=== PATIENT | female | born 1980 | race Caucasian/White ===

== ENCOUNTER → 2018-02-14 16:19 | Outpatient (CLI) | payer SELFPAY ==
[2018-02-14 18:23] LABS: Free T3, Triiodothyronine Free 3.31 pg/mL (2.77-5.27); Free T4, Direct Thyroxine 0.89 ng/dL (0.78-2.19)
[2018-02-14 18:37] LABS: Thyroid Stimulating Hormone 1.71 uIU/mL (0.47-4.68)
[2018-02-14 18:38] LABS: Ferritin 32.4 ng/mL (6.27-137)
[2018-02-16 15:04] LABS: Thyroid Peroxidase Antibodies < 1 IU/mL (< 9)
== END ==
PROVIDERS: Family Provider Family Medicine; Visit Provider Naturopath
DX: R53.83 Other fatigue (principal); E07.9 Disorder of thyroid, unspecified
CPT/HCPCS: 36415; 82728; 84439; 84443; 84481; 86376

== ENCOUNTER → 2021-05-07 07:47 | Outpatient (CLI) | payer OTHER, MEDICAID, SELFPAY ==
--- NOTE | 2021-05-07 07:49 | DI.US.S_ITS ---
PROCEDURE: US OB <= 14 WEEKS FETUS INDICATIONS: DATING OUTSIDE/PRIOR DATING DATA: Last menstrual period (LMP): 03/10/2021 LMP-based estimated date of delivery (FARHAD): 12/15/2021. First dating scan (date and location): 05/07/2020. Estimated date of delivery (FARHAD) from first dating scan: 12/11/2021. TECHNIQUE: Real-time scanning was performed of the fetus and maternal pelvic organs, with image documentation. Endovaginal scanning was also performed to better visualize the fetus and maternal ovaries. COMPARISON: None. FINDINGS: Embryo: [place]-rump length measures 2.2 cm corresponding to 8 weeks 6 days. Heart rate: 171 Measurement variability in dating: +/- 4 weeks by LMP, +/- 7 days by mean sac diameter (use before 6 weeks gestation if crown-rump length not able to be measured), +/- 5 days by crown-rump length (up to 8 weeks 6 days gestation), +/- 7 days by crown-rump length (up to 13 weeks 6 days gestation). Maternal organs: Neither normal ovary is seen. There is a cystic structure within the midline of the pelvis measuring 5.8 x 4.7 x 3.0 cm as well as a cyst within the right adnexa measuring 3.2 x 2.9 x 2.9 cm which contains likely a prominent posterior wall septation. IMPRESSION: 1. 8 week 6 day single living IUP. 2. There are 2 cystic structures within the midline of the pelvis and the right adnexa as above. Recommend continued followup ultrasound as detailed below. Recommend clinical correlation and short-term follow-up pelvic ultrasound to assess for interval change and/or resolution. Dictated by: Robert Meyer [facility] Interpreted: Drake Santiago MD on 05/08/2021 at 16:34 Transcribed by: TWIN on 05/08/2021 at 16:38 Approved by: Drake Santiago M.D. on 05/08/2021 at 17:17
== END ==
PROVIDERS: Family Provider Family Medicine; PCP Family Medicine; Referring Provider Family Medicine; Visit Provider Family Medicine
DX: O34.81 Maternal care for other abnormalities of pelvic organs, first trimester (principal); N94.89 Other specified conditions associated with female genital organs and menstrual cycle; Z3A.08 8 weeks gestation of pregnancy
CPT/HCPCS: 76801; 76817

== ENCOUNTER → 2021-05-09 10:23 | Outpatient (CLI) | payer OTHER, MEDICAID, SELFPAY ==
--- NOTE | 2021-05-08 10:40 | DI.US.S_ITS ---
Patient Name: MK MAHAN date: 1980 Sex: F Attending Physician: Fabian Indications: Date: 05/09/2021 11:40 At the request of: ELKE JACINTO Procedure: US breast RT limited LIMITED ULTRASOUND OF RIGHT BREAST: 05/09/2021 CLINICAL: Palpable right breast lump and focal pain. Comparison is made to exam dated: 05/09/2021 [facility]. No prior mammograms. Patient is in her first trimester of . Real-time ultrasound of the right breast 4 o'clock region was performed. Alvarado scale images of the realtime examination were reviewed. No significant abnormalities were seen sonographically in the right breast in the region of pain. IMPRESSION: NEGATIVE There is no sonographic evidence of malignancy in the region of pain. Exam findings were conveyed to the patient. Patient is advised to monitor for significant change. Clinical follow-up as needed. A 1 year screening mammogram is recommended. This exam was interpreted at Station ID: [id number]. Electronically Signed By: Jerry Dia M.D. slc/:05/09/2021 11:47:34 letter sent: Normal Exam Ultrasound BI-RADS: 1 Negative
--- NOTE | 2021-05-09 10:23 | DI.US.S_ITS ---
LIMITED ULTRASOUND OF LEFT BREAST: 05/09/2021 CLINICAL: Palpable left breast lump and focal pain. No prior exams were available for comparison. Patient is in her first trimester of . Color flow and real-time ultrasound of the left breast were performed. Alvarado scale images of the real-time examination were reviewed. No solid mass or significant cyst in the region of palpable abnormality and pain at 10:00. There is a 0.8 cm oval cyst in the left breast at 12 o'clock middle depth. This oval cyst is anechoic. This correlates as an incidental finding. Color flow imaging demonstrates that there is no vascularity present. There is an adjacent duct or cyst. Simple cyst at 12:00 8 cm from the nipple measuring 0.7 cm. Multiple small cysts or ducts. IMPRESSION: BENIGN There is no sonographic evidence of malignancy. Patient is in her first trimester of . No solid mass or significant cyst in the region of palpable abnormality and pain. Several small incidental cysts and/or ducts in the 12:00 region which are typically benign. Exam findings were conveyed to the patient. Patient is advised to monitor for significant change. Clinical follow-up as needed. A 1 year screening mammogram is recommended. This exam was interpreted at Station ID: [id number]. Electronically Signed By: Jerry Dia M.D. [facility]/:05/09/2021 11:45:18 Entry: [facility] [address] 05/12/2021 08:50:29 Ultrasound BI-RADS: 2 Benign
== END ==
PROVIDERS: Family Provider Family Medicine; PCP Family Medicine; Referring Provider Family Medicine; Visit Provider Family Medicine
DX: O92.29 Other disorders of breast associated with pregnancy and the puerperium (principal)
CPT/HCPCS: 76642

== ENCOUNTER → 2021-05-29 14:54 | Outpatient (CLI) | payer OTHER, MEDICAID, SELFPAY ==
[2021-05-29 15:47] LABS: Add Manual Diff / Slide Review NO; Basophils Absolute Auto 0 /uL (0-100); Basophils Percent Auto 0.2 % (0-2); Eosinophils Absolute Auto 100 /uL (0-450); Hematocrit 35.5 % (36-46); Hemoglobin 12.1 g/dL (12.0-16.0); Lymphocytes Absolute Auto 1700 /uL (1100-4500); Lymphocytes Percent Auto 26.1 % (25-40); Mean Corpuscular HGB Conc 34.1 % (30-36); Mean Corpuscular Hemoglobin 31.3 PG (26-34); Mean Corpuscular Volume 91.9 fL (80-100); Monocytes Absolute Auto 400 /uL (0-900); Monocytes Percent Auto 6.8 % (3-14); Neutrophils Absolute Auto 4300 /uL (1500-7000); Neutrophils Percent Auto 65.9 % (50-75); Platelet Count 178 X10^3/uL (150-400); Red Blood Cell Count 3.87 X10^6/uL (4.0-5.2); Red Cell Distribution Width 11.9 % (11.6-14.8); White Blood Cell Count 6.5 X10^3/uL (4.5-11.0)
[2021-05-29 16:18] LABS: Appearance Urine UA CLEAR; Bilirubin Urine UA NEGATIVE (NEGATIVE); Color Urine UA YELLOW; Glucose Urine UA NEGATIVE (Negative); Ketones Urine UA NEGATIVE (NEGATIVE); Leukocyte Esterase Urine UA 1+ (NEGATIVE); Nitrite Urine UA NEGATIVE (Negative); Occult Blood Urine UA NEGATIVE (Negative); Protein Urine UA NEGATIVE (Negative); Urobilinogen Urine UA 0.2 E.U./dL (0.2)
[2021-05-29 16:20] LABS: pH Urine UA 6.5 (4.5-8.0)
[2021-05-29 16:30] LABS: Bacteria Urine Moderate (10-30); RBC Urine 0-1/HPF (0-5/HPF); Squamous Epithelial Cell Urine 5-10 /HPF (0-5/HPF); Transitional Epi Cells Urine 1-5/HPF (0-5/HPF); WBC Urine 5-10/HPF (0-5/HPF)
[2021-05-29 17:39] LABS: Hepatitis B Surface Antigen NEGATIVE s/c (NEGATIVE); Rubella Antibody IgG 20.2 IU/mL (>15)
[2021-05-29 18:06] LABS: HIV 1 & 2 Ab/Ag 4th Gen Combo NEGATIVE (NEGATIVE); Hep C Virus Ab w/Reflex Quant NEGATIVE s/c (NEGATIVE)
[2021-05-30 05:24] LABS: Varicella IgG Antibody 722 index (Immune >165)
[2021-05-30 06:59] LABS: RPR Screen Non Reactive (Non Reactive)
== END ==
PROVIDERS: Family Provider Family Medicine; PCP Family Medicine; Referring Provider Family Medicine; Visit Provider Family Medicine
DX: O09.511 Supervision of elderly primigravida, first trimester (principal); Z3A.08 8 weeks gestation of pregnancy
CPT/HCPCS: 36415; 80055; 81003; 81015; 81420; 86787; 86803; 86850; 86900; 86901; 87086; 87389

== ENCOUNTER → 2021-07-30 12:32 | Outpatient (CLI) | payer OTHER, MEDICAID, SELFPAY ==
--- NOTE | 2021-07-30 12:32 | DI.US.S_ITS ---
PROCEDURE: US OB >= 14 WEEKS FETUS INDICATIONS: ANATOMY OUTSIDE/PRIOR DATING DATA: Last menstrual period (LMP): 03/10/2021. LMP-based estimated date of delivery (FARHAD): 12/15/2021. First dating scan (date and location): 05/07/2021 [facility]. Estimated date of delivery (FARHAD) from first dating scan: 12/11/2021. The calculations are made using the ultrasound FARHAD of 12/11/2021. TECHNIQUE: Real-time scanning was performed of the fetus, with image documentation and biometric measurements. Endovaginal scanning: Not performed. COMPARISON: [facility], US, US OB <= 14 WEEKS FETUS, 05/14/2021, 15:36. FINDINGS: General: A single living intrauterine gestation is present. Presentation: Variable. Placenta: Placental position is anterior, without previa. Amniotic fluid index: 21.3 cm, normal range is 5-24 cm. Single deepest vertical pocket is 6.7 cm. heart rate: 160 beats per minute. Maternal cervical canal: 4.2 cm long. Normal lower limit is 2.5 cm. biometrics: Biparietal diameter: 5 cm, 21 weeks 1 day Head circumference: 18.2 cm, 20 weeks 4 days Abdominal circumference: 17.1 cm, 22 weeks 1 day Femur length: 3.4 cm, 20 weeks 4 days Clinically estimated gestational age: 20 weeks 6 days Composite gestational age from present scan: 21 weeks 1 day Estimated weight and percentile: 414 g, 70th percentile Anatomic survey: Neuro: Ventricles are non-dilated at less than 10 mm. Cisterna magna is normal at 3-11 mm. Cerebellum is normal in size and morphology. Nuchal skin fold: Normal at less than 6 mm between 14-21 weeks gestational age. Face: Nose and lips, facial profile are normal. Spine: No evidence for spina bifida. Heart: 4-chambered heart is present, with normal ventricular outflow tracts. Diaphragm: Diaphragm is intact. Stomach: Left-sided stomach is present. Kidneys: No hydronephrosis. Normal is less than 5 mm in 2nd trimester, less than 7 mm in 3rd trimester. Cord: 3-vessel cord has orthotopic insertion. Bladder: Normal in size. Extremities: All 4 extremities identified. IMPRESSION: 1. Howard living intrauterine at 21 weeks 1 day based on today's ultrasound. This is concordant with the prior ultrasound. There is expected interval growth. Fetus is in the 70th percentile for weight. 2. Normal placenta and amniotic fluid. 3. Normal and complete anatomic survey. We strive to produce accurate, complete, and clear reports of imaging services. To assist us in improving patient care, this report was composed using standard report templates and voice recognition software. Therefore, it may contain abnormal punctuation, insertions and/or omissions. Occasional wrong-word or sound-alike substitutions may occur. Though we review the report and make efforts to correct it, we do recommend that the report be read carefully in proper context to recognize any text inaccuracies. Dictated by: Jerry Dia M.D. on 07/30/2021 at 14:27 Approved by: Jerry Dia M.D. on 07/30/2021 at 14:32
== END ==
PROVIDERS: Family Provider Family Medicine; PCP Family Medicine; Referring Provider Family Medicine; Visit Provider Family Medicine
DX: Z36.89 Encounter for other specified antenatal screening (principal); Z3A.21 21 weeks gestation of pregnancy
CPT/HCPCS: 76811

== ENCOUNTER 2021-08-22 11:15 | Outpatient (RCR) | payer OTHER, MEDICAID, SELFPAY ==
--- NOTE | 2021-06-24 17:32 | PT.OIE ---
Current Diagnoses Strain of muscle, fascia and tendon of right hip, initial encounter (06/24/21) Past Medical History (Last Updated 04/30/21 @ 12:30 by Dior Basilio RN) Abnormal Pap smear of cervix (~2003) Anemia (~2009) Blindness (~2013) Chicken pox (~1987) Herpes (~2015) History of hand surgery (~2007) Human papilloma virus (~2004) Menorrhagia with regular cycle (05/31/15) PMDD (premenstrual dysphoric disorder) depression associated with first (~06/2016) Secondary dysmenorrhea (05/31/15) Past Surgical History (Last Updated 04/30/21 @ 12:26 by Dior Basilio RN) Anesthesia History of hand surgery (~2007) History of third molar tooth extraction (~2000) Status post sclerotherapy of varicose veins (~2006) Visit Care Team Role Provider Type Silvia Tovar MD Family Provider Physician Primary Care Provider Specialty: [facility] Address: [address] [place] [address], [facility] [place] [id number] Email: [email or web address] Michelle Peralta MD Attending Provider Physician Referring Provider Specialty: [facility] Address: [address] [place] [address], [place], [address] Email: [email or web address] Physical Therapy Initial Evaluation PT-OP-A Visit Information Start: 06/20/21 18:32 Freq: Status: Active Protocol: Document 06/24/21 11:16 LRN (Rec: 06/24/21 12:14 LRN [id number]) Out-Patient Physical Therapy Visit Information Visit Information Visit Type Initial Evaluation Visit Start Time 11:16 Visit Stop Time 12:08 Total Visit Minutes 52 Visit Number 1 Evaluation Information Evaluation Date 06/24/21 Precautions Precautions Bilateral varicose vein removal 2010. 3, Parity 1. Pt is currently 14 weeks . PT-OP-B Current Condition Start: 06/20/21 18:32 Freq: Status: Active Protocol: Document 06/24/21 11:16 LRN (Rec: 06/24/21 12:14 LRN [id number]) Current Condition History of Current Condition Onset Date 3 yrs ago Current Complaints R hip pain, onset of L hip pain 2 days ago. History of Current Condition R hip pain started 3 yrs ago when son was 1.5 yrs old, carrying him on the L hip. R hip pain of insidious onset. has caused a flair up of pain. She is uncomfortable lying on either side, standing for > 30', walking after 30', sitting > 1 hour (unbearable after 2 hrs. If stands > 30', the R hip/LB pain extends into the groin. If doesn't move, the R hip becomes painful, and muscles feel tight. Denies pubic symphysis pain. Pt must shift often in sitting due to the pain. L hip pain just started 2 days ago. Pain in the center of the L buttock, described as constant sharp pain for a couple minutes ( different from R side) 1-2 times a day. Prior Treatments and Tests Chiropractor visits for 6 months, stopped in March due to and lack of pain relief. Pt reports X-rays by Chiropractor showed normal R hip & R SI joints. Future Testing and Treatments Planned None Treatment Goals Patient/Caregiver Goals Goal: improve hip mobility to increase tolerance to exercises. Goal: review ex and get on appropriate ex program. Goal: improve mobility of R hip. GoaL: lying on side with greater comfort. 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 Baseline Function- Recreation/Hobbies Body weight exercising 5x/week . Baseline Function- Other Mom of a 5 yr old. Current Functional Impairments (Reported) Functional Limitations- ADL's Pain with sidelying, sitting or standing >30' and walking greater than 1 hour. Functional Limitations- Work/School Limited with sitting for work. 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 Functional Limitations- Recreation/ Makes adjustments as needed Hobbies for exercise routine due to R hip pain. Personal Factors Other Personal Factors That May Effect due date is December 15, Therapy/Recovery 2021. 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 PT-OP-C Subjective Start: 06/20/21 18:32 Freq: Status: Active Protocol: Document 06/24/21 11:16 LRN (Rec: 06/24/21 12:14 LRN [id number]) Patient Questionnaires Lower Extremity Functional Scale LEFS Score 60 LEFS Impairment 20 to 39% Impaired (Score 48- 62) OP-PT Pain Assessment Pain Assessment Grid Paper Pain Assessment Grid Completed Yes Location L hip pain Pain Location Details Mid L hip Intensity 4 Scale Used Numeric (0 - 10) Description Sharp Description- Other Only in standing Frequency Intermittent R hip Pain Location Details R hip/LBP wraps around the laterally, if worsens it radiates into the groin Intensity 6 Scale Used Numeric (0 - 10) Description Dull,Pressure,Tightness Description- Other Pain ranges 3-6 (around hip is 6, in groin is 3. Frequency Constant PT-OP-G Mobility & Gait Start: 06/20/21 18:32 Freq: Status: Active Protocol: Document 06/24/21 11:16 LRN (Rec: 06/24/21 12:14 LRN [id number]) OP Gait Assessment Gait Gait Assistance Required: Independent Able to Maintain Weight Bearing Status Yes During Gait Assistive Devices Assistive Device None Comments Gait Comments R hip excessive sway and lifts up on toes (R) from stance phase to toe off. Stair Climbing Evaluation Evaluation Level of Assist On Stairs Independent Devices Stair Climbing Assistive Devices None Technique/Endurance Stair Climbing Direction Ascend and Descend Stair Climbing Technique Step Over Step PT-OP-H Neuro Start: 06/20/21 18:32 Freq: Status: Active Protocol: Document 06/24/21 11:16 LRN (Rec: 06/24/21 12:14 LRN [id number]) Sensation Evaluation Gross Sensation Gross Sensation WNL PT-OP-J Posture/Palpation/Skin Start: 06/20/21 18:32 Freq: Status: Active Protocol: Document 06/24/21 11:16 LRN (Rec: 06/24/21 12:14 LRN [id number]) Posture Evaluation Position Standing T-Spine Posture Flattened L-Spine Posture Increased Lordosis Pelvis Posture Anteriorly Tilted Weight Distribution Balanced Knee Posture (L) Genu Valgus,(R) Genu Valgus Comments Posture Comments In sitting pt move frequently, leaning and sitting on one hip, then the other. Palpation Assessment Location R Hip Palpation Details Decreased R inferior glide of R sacral base, decreased sacral shear to left, R ischium is posterior L TIFFANY is posterior PT-OP-K Range of Motion Start: 06/20/21 18:32 Freq: Status: Active Protocol: Document 06/24/21 11:16 LRN (Rec: 06/24/21 12:14 LRN [id number]) Lumbar Spine Range of Motion Lumbar Spine Active Degrees Testing Position Standing Flexion 98 Extension 3 Rotation Left 20 Rotation Right 35 Lateral Flexion Left 10 Lateral Flexion Right 13 Comments Ext causes pain in sit bone reagion SB is combo of SB/rot to same side. Hip Goniometric Range of Motion Hip Right Passive Testing Position Supine Straight Leg Raise 80 Internal Rotation 25 External Rotation 65 Left Passive Testing Position Supine Straight Leg Raise 85 Internal Rotation 30 External Rotation 55 PT-OP-M Strength Start: 06/20/21 18:32 Freq: Status: Active Protocol: Document 06/24/21 11:16 LRN (Rec: 06/24/21 12:14 LRN [id number]) Hand Speed Reading Teacher/Pinch Strength Hand Dominance Hand Dominance Right Hip Strength Hip Manual Muscle Testing Right Flexion (L2) 5 Normal Abduction 4 Good Adduction 3+ Fair+ External Rotation 3+ Fair+ Internal Rotation 5 Normal Left Flexion (L2) 5 Normal Abduction 5 Normal Adduction 5 Normal External Rotation 5 Normal Internal Rotation 5 Normal PT-OP-Q Treatments Start: 06/20/21 18:32 Freq: Status: Active Protocol: Document 06/24/21 11:16 LRN (Rec: 06/24/21 12:14 LRN [id number]) Manual Therapy Treatment Soft Tissue Mobilization Inferior glide L Sacral base Body Location L Sacral Base Mobilization Type Myofascial Release Intensity/Depth Moderate Body Position Prone Comments Prone on pillow Joint Mobilizations Ischial Mobility Joint R Ischial Tuberosity Direction PA Body Position Prone Comments Prone on pillow. MFR treatment Sacral TIFFANY Joint PA of L Sacral TIFFANY Direction PA Body Position Prone Comments Prone on pillow. MFR treatment R Sacral rotation Joint L SIJ, PA at L lateral side of sacrum Direction Correcting a L rotated sacrum Body Position Prone Comments Prone on pillow. MFR treatment Self-Care/Home Management Treatment Education Other Education Discussed results of evaluation, goals, and plan of care (POC). Pt agreeable to goals and POC. PT-OP-T Assessment and Plan Start: 06/20/21 18:32 Freq: Status: Active Protocol: Document 06/24/21 11:16 LRN (Rec: 06/24/21 12:14 LRN [id number]) Physical Therapy Assessment Rehab Potential Rehabilitation Potential Good Evaluation Complexity Number of Personal Factors/Comorbidities 3 or More Number of Body Systems Impaired 4 or More Clinical Presentation at Evaluation Evolving Impairments Impairments Activity Tolerance,Gait,Pain, Posture,ROM,Strength,Transfers Goals Three Impairment Decreased pelvic/lumbar strength and stability. Impairment R Hip strength: AD 3+/5, AB 4 /5, ER 3+/5. L Hip strength is normal. Pain with sidelying, sitting or standing >30' Short Term Goal (STG) Improve trunk stability with pt able to increase standing tolerance. STG Duration 08/08/21 Residential Goal (LTG) Improve pelvic stability with pt able to sit and sidelye with greater comfort (improved tolerance). LTG Duration 09/22/21 Two Impairment Asymmetry of Hip/lumbar mobility causing strain and pain in bilateral hips Impairment Hip PROM (in deg's): ER is 65 R, 55L, IR is 25 R, 55 L, PSLR is 80 R, 85 L. Lumbar AROM (in deg's): Extension: 3 deg's, Rot: 20 L, 35 R; SB: 10 L, 13 R Pain with walking greater than 1 hour. Short Term Goal (STG) Pt will be educated in proper transfer (log roll) technique and demonstrate improve hip rotation and lumbar extension/ rotation mobility to increase tolerance to exercises. STG Duration 08/08/21 Residential Goal (LTG) Improve symmetry of hip and lumbar mobility with normalization of gait and pt able to do a exercise without sharp pain and worsening of pain. LTG Duration 09/22/21 One Impairment Lacks appropriate self care HEP. Short Term Goal (STG) Pt will educated in proper posture in standing, sitting & for sleeping. Pt's current exercise reviewed and modified as needed for appropriate exercise. STG Duration 08/08/21 Residential Goal (LTG) Pt will be independent in a self care HEP appropriate for her ending condition to include hip/trunk mobility and trunk/pelvic stabilization. LTG Duration 09/22/21 Assessment Summary Assessment Pt is a 41 year old female in her first trimester of who is 3, Parity 1. She presents with decreased mobility of the R SIJ with sacrum SB right and L rotated. She is does not sit still during the evaluation and is constantly shifting while in sitting. Her R hip/ SIJ pain that wraps around to the front and into the R groin is her primary complaint, but within the past 2 days has developed onset of L low back pain that is different in nature (sharp vs dull ache). Her L sided pain will be assessed at the next appointment, but probably a Sacroiliac joint dyfunction. Her R SIJ/hip pain appears to be a mechanical dysfunction of the pelvic region and soft tissue dysfunction due to core and pelvic stability weakness . The pt will benefit from skilled physical therapy to promote pelvic symmetry and stability, core and pelvic stabilization, therapeutic exercise to improve trunk and hip mobility, modalities for pain and pt education in posture (sit, stand, sleep), body mechanics, appropriate self care exercise program. Physical Therapy Plan Frequency and Duration Frequency of Treatment 2x/Week Plan of Care Start Date 06/24/21 Plan of Care End Date 09/22/21 Therapeutic Interventions Therapeutic Interventions Gait Training,Home Exercise Program,Joint Mobilizations, Manual Therapy,Neuromuscular Re-education,Patient/Caregiver Education,Self-Care/Home Management,Soft Tissue Mobilization,Taping, Therapeutic Activities, Therapeutic Exercises Modalities Cold Pack/Ice Massage,Hot Packs Next Visit Focus/Plan Next Note Type Treatment Note Next Visit Plan Check special tests for R SIJ dysfunction. Assess and treat for open pattern and rebalance. Educate for proper posture (sit, stand, sleep), DR protection & correct transfers. Therapeutic ex for core/pelvic stabilization and stretches (L hip ER, R hip IR /hamstring; trunk flex, L rot & L lateral flex), strengthening PF/R hip (AD/ER) . Gait training as needed. End CP.
--- NOTE | 2021-06-24 17:33 | PT.OPPOC ---
Physical, Occupational & Speech Therapy At [facility] Current Diagnoses Strain of muscle, fascia and tendon of right hip, initial encounter (06/24/21) Visit Care Team Role Provider Type Silvia Tovar MD Family Provider Physician Primary Care Provider Specialty: [facility] Address: [address] [place] [address], [address], [place], [address] Email: [email or web address] Michelle Peralta MD Attending Provider Physician Referring Provider Specialty: [facility] Address: [address] [place] [address], [address], [place], [address] Email: [email or web address] Plan Of Care PT-OP-T Assessment and Plan Start: 06/20/21 18:32 Freq: Status: Active Protocol: Document 06/24/21 11:16 LRN (Rec: 06/24/21 12:14 LRN [id number]) Physical Therapy Assessment Rehab Potential Rehabilitation Potential Good Evaluation Complexity Number of Personal Factors/Comorbidities 3 or More Number of Body Systems Impaired 4 or More Clinical Presentation at Evaluation Evolving Impairments Impairments Activity Tolerance,Gait,Pain, Posture,ROM,Strength,Transfers Goals Three Impairment Decreased pelvic/lumbar strength and stability. Impairment R Hip strength: AD 3+/5, AB 4 /5, ER 3+/5. L Hip strength is normal. Pain with sidelying, sitting or standing >30' Short Term Goal (STG) Improve trunk stability with pt able to increase standing tolerance. STG Duration 08/08/21 Half-Way Goal (LTG) Improve pelvic stability with pt able to sit and sidelye with greater comfort (improved tolerance). LTG Duration 09/22/21 Two Impairment Asymmetry of Hip/lumbar mobility causing strain and pain in bilateral hips Impairment Hip PROM (in deg's): ER is 65 R, 55L, IR is 25 R, 55 L, PSLR is 80 R, 85 L. Lumbar AROM (in deg's): Extension: 3 deg's, Rot: 20 L, 35 R; SB: 10 L, 13 R Pain with walking greater than 1 hour. Short Term Goal (STG) Pt will be educated in proper transfer (log roll) technique and demonstrate improve hip rotation and lumbar extension/ rotation mobility to increase tolerance to exercises. STG Duration 08/08/21 Braille Typist Goal (LTG) Improve symmetry of hip and lumbar mobility with normalization of gait and pt able to do a exercise without sharp pain and worsening of pain. LTG Duration 09/22/21 One Impairment Lacks appropriate self care HEP. Short Term Goal (STG) Pt will educated in proper posture in standing, sitting & for sleeping. Pt's current exercise reviewed and modified as needed for appropriate exercise. STG Duration 08/08/21 Braille Typist Goal (LTG) Pt will be independent in a self care HEP appropriate for her ending condition to include hip/trunk mobility and trunk/pelvic stabilization. LTG Duration 09/22/21 Assessment Summary Assessment Pt is a 41 year old female in her first trimester of who is 3, Parity 1. She presents with decreased mobility of the R SIJ with sacrum SB right and L rotated. She is does not sit still during the evaluation and is constantly shifting while in sitting. Her R hip/ SIJ pain that wraps around to the front and into the R groin is her primary complaint, but within the past 2 days has developed onset of L low back pain that is different in nature (sharp vs dull ache). Her L sided pain will be assessed at the next appointment, but probably a Sacroiliac joint dyfunction. Her R SIJ/hip pain appears to be a mechanical dysfunction of the pelvic region and soft tissue dysfunction due to core and pelvic stability weakness . The pt will benefit from skilled physical therapy to promote pelvic symmetry and stability, core and pelvic stabilization, therapeutic exercise to improve trunk and hip mobility, modalities for pain and pt education in posture (sit, stand, sleep), body mechanics, appropriate self care exercise program. Physical Therapy Plan Frequency and Duration Frequency of Treatment 2x/Week Plan of Care Start Date 06/24/21 Plan of Care End Date 09/22/21 Therapeutic Interventions Therapeutic Interventions Gait Training,Home Exercise Program,Joint Mobilizations, Manual Therapy,Neuromuscular Re-education,Patient/Caregiver Education,Self-Care/Home Management,Soft Tissue Mobilization,Taping, Therapeutic Activities, Therapeutic Exercises Modalities Cold Pack/Ice Massage,Hot Packs Next Visit Focus/Plan Next Note Type Treatment Note Next Visit Plan Check special tests for R SIJ dysfunction. Assess and treat for open pattern and rebalance. Educate for proper posture (sit, stand, sleep), DR protection & correct transfers. Therapeutic ex for core/pelvic stabilization and stretches (L hip ER, R hip IR /hamstring; trunk flex, L rot & L lateral flex), strengthening PF/R hip (AD/ER) . Gait training as needed. End CP. Plan of Care Dates Plan of Care Start Date 06/24/21 Plan of Care End Date 09/22/21 Electronically Signed by: Talya Mcgovern, PT 06/24/21 [id number] Please Sign and Return: I have reviewed this Plan of Care and certify that the skilled therapy services above are required to meet the patient?s needs. Physician Signature Date Printed Name and Credentials Clinical Instructor Signature Printed Name and Credentials
--- NOTE | 2021-06-27 16:55 | PT.OTN ---
Current Diagnoses Strain of muscle, fascia and tendon of right hip, initial encounter (06/27/21) Physical Therapy Treatment Note PT-OP-A Visit Information Start: 06/20/21 18:32 Freq: Status: Active Protocol: Document 06/27/21 13:40 LRN (Rec: 06/27/21 16:54 LRN [id number]) Out-Patient Physical Therapy Visit Information Visit Information Visit Type Treatment Note Visit Start Time 13:40 Visit Stop Time 14:19 Total Visit Minutes 39 Visit Number 2 Evaluation Information Evaluation Date 06/24/21 Precautions Precautions Bilateral varicose vein removal 2010. 3, Parity 1. Pt is currently 14 weeks . PT-OP-B Current Condition Start: 06/20/21 18:32 Freq: Status: Active Protocol: Document 06/24/21 11:16 LRN (Rec: 06/24/21 12:14 LRN [id number]) Current Condition History of Current Condition Onset Date 3 yrs ago Current Complaints R hip pain, onset of L hip pain 2 days ago. History of Current Condition R hip pain started 3 yrs ago when son was 1.5 yrs old, carrying him on the L hip. R hip pain of insidious onset. has caused a flair up of pain. She is uncomfortable lying on either side, standing for > 30', walking after 30', sitting > 1 hour (unbearable after 2 hrs. If stands > 30', the R hip/LB pain extends into the groin. If doesn't move, the R hip becomes painful, and muscles feel tight. Denies pubic symphysis pain. Pt must shift often in sitting due to the pain. L hip pain just started 2 days ago. Pain in the center of the L buttock, described as constant sharp pain for a couple minutes ( different from R side) 1-2 times a day. Prior Treatments and Tests Chiropractor visits for 6 months, stopped in March due to and lack of pain relief. Pt reports X-rays by Chiropractor showed normal R hip & R SI joints. Future Testing and Treatments Planned None Treatment Goals Patient/Caregiver Goals Goal: improve hip mobility to increase tolerance to exercises. Goal: review ex and get on appropriate ex program. Goal: improve mobility of R hip. GoaL: lying on side with greater comfort. 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 Baseline Function- Recreation/Hobbies Body weight exercising 5x/week . Baseline Function- Other Mom of a 5 yr old. Current Functional Impairments (Reported) Functional Limitations- ADL's Pain with sidelying, sitting or standing >30' and walking greater than 1 hour. Functional Limitations- Work/School Limited with sitting for work. 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 Functional Limitations- Recreation/ Makes adjustments as needed Hobbies for exercise routine due to R hip pain. Personal Factors Other Personal Factors That May Effect due date is December 15, Therapy/Recovery 2021. 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 PT-OP-C Subjective Start: 06/20/21 18:32 Freq: Status: Active Protocol: Document 06/27/21 13:40 LRN (Rec: 06/27/21 16:54 LRN [id number]) OP-PT Subjective Patient Comments Patient Comments Was sore after the eval in the R SIJ, but last night did not get woken. Sometimes the pain wakes her. PT-OP-G Mobility & Gait Start: 06/20/21 18:32 Freq: Status: Active Protocol: Document 06/24/21 11:16 LRN (Rec: 06/24/21 12:14 LRN [id number]) OP Gait Assessment Gait Gait Assistance Required: Independent Able to Maintain Weight Bearing Status Yes During Gait Assistive Devices Assistive Device None Comments Gait Comments R hip excessive sway and lifts up on toes (R) from stance phase to toe off. Stair Climbing Evaluation Evaluation Level of Assist On Stairs Independent Devices Stair Climbing Assistive Devices None Technique/Endurance Stair Climbing Direction Ascend and Descend Stair Climbing Technique Step Over Step PT-OP-H Neuro Start: 06/20/21 18:32 Freq: Status: Active Protocol: Document 06/24/21 11:16 LRN (Rec: 06/24/21 12:14 LRN [id number]) Sensation Evaluation Gross Sensation Gross Sensation WNL PT-OP-J Posture/Palpation/Skin Start: 06/20/21 18:32 Freq: Status: Active Protocol: Document 06/24/21 11:16 LRN (Rec: 06/24/21 12:14 LRN [id number]) Posture Evaluation Position Standing T-Spine Posture Flattened L-Spine Posture Increased Lordosis Pelvis Posture Anteriorly Tilted Weight Distribution Balanced Knee Posture (L) Genu Valgus,(R) Genu Valgus Comments Posture Comments In sitting pt move frequently, leaning and sitting on one hip, then the other. Palpation Assessment Location R Hip Palpation Details Decreased R inferior glide of R sacral base, decreased sacral shear to left, R ischium is posterior L TIFFANY is posterior PT-OP-K Range of Motion Start: 06/20/21 18:32 Freq: Status: Active Protocol: Document 06/24/21 11:16 LRN (Rec: 06/24/21 12:14 LRN [id number]) Lumbar Spine Range of Motion Lumbar Spine Active Degrees Testing Position Standing Flexion 98 Extension 3 Rotation Left 20 Rotation Right 35 Lateral Flexion Left 10 Lateral Flexion Right 13 Comments Ext causes pain in sit bone reagion SB is combo of SB/rot to same side. Hip Goniometric Range of Motion Hip Right Passive Testing Position Supine Straight Leg Raise 80 Internal Rotation 25 External Rotation 65 Left Passive Testing Position Supine Straight Leg Raise 85 Internal Rotation 30 External Rotation 55 PT-OP-L Special Tests Start: 06/20/21 18:32 Freq: Status: Active Protocol: Document 06/27/21 13:40 LRN (Rec: 06/27/21 16:54 LRN [id number]) Special Tests Hip Special Tests Posterior Labral Test Test Results Negative RLE Anterior Labral Test Test Results Negative RLE [facility] Resisted Hip Flexion Test Results Negative RLE MEGHANN Test Results Negative RLE PT-OP-M Strength Start: 06/20/21 18:32 Freq: Status: Active Protocol: Document 06/24/21 11:16 LRN (Rec: 06/24/21 12:14 LRN [id number]) Hand Crushing Machine Operator/Pinch Strength Hand Dominance Hand Dominance Right Hip Strength Hip Manual Muscle Testing Right Flexion (L2) 5 Normal Abduction 4 Good Adduction 3+ Fair+ External Rotation 3+ Fair+ Internal Rotation 5 Normal Left Flexion (L2) 5 Normal Abduction 5 Normal Adduction 5 Normal External Rotation 5 Normal Internal Rotation 5 Normal PT-OP-Q Treatments Start: 06/20/21 18:32 Freq: Status: Active Protocol: Document 06/27/21 13:40 LRN (Rec: 06/27/21 16:54 LRN [id number]) Therapeutic Exercises Sidelying Exercises Clamshell Sidelying Exercise Name Clamshell (R>L) Side bilateral Reps/Minutes 10' Comments Much phy & v cuing to keep pelvis stable & to lift knee higher Sitting Exercises Trunk Rot Sitting Exercise Name L[place]ha trunk rot (hands push to opposite knee) Side bilateral Reps/Minutes 5x R hand push, 2x L hand push Comments R hand pushing L knee > L hand /R knee Other Exercises Hands/knees Other Exercise Name TA tightening Reps/Minutes 5>10 sec H, x 10 Comments Extra time to determine neutral spine and v cuing to keep neutral. Manual Therapy Treatment Joint Mobilizations Pelvic rebalancing Joint Sacrum/Innominates Direction 8 point pelvic rebalancing Body Position Prone Comments Prone on pillow. MFR treatment Sacrum Joint R sacral sulcus Direction Inferior Body Position Prone Comments Prone on pillow. MFR treatment Sacral rotation correction Joint Correcting a R sacral rotation (PA R lat sacrum) Body Position Prone Comments Prone on pillow. MFR treatment Ischial Mobility Joint R Ischial Tuberosity Direction PA Body Position Prone Comments Prone on pillow. MFR treatment Sacral TIFFANY Joint PA of R Sacral TIFFANY Direction PA Body Position Prone Comments Prone on pillow. MFR treatment Self-Care/Home Management Treatment Education Patient Education Home Exercise Program Activities Self-Care/Home Management Activities Verbal instructions for Clamshell/neutral spine(TA) & 4 pt for TA tightening. PT-OP-T Assessment and Plan Start: 06/20/21 18:32 Freq: Status: Active Protocol: Document 06/27/21 13:40 LRN (Rec: 06/27/21 16:54 LRN [id number]) Physical Therapy Assessment Goals Three Impairment Decreased pelvic/lumbar strength and stability. Impairment R Hip strength: AD 3+/5, AB 4 /5, ER 3+/5. L Hip strength is normal. Pain with sidelying, sitting or standing >30' Short Term Goal (STG) Improve trunk stability with pt able to increase standing tolerance. STG Duration 08/08/21 Elastic Tape Inserter Goal (LTG) Improve pelvic stability with pt able to sit and sidelye with greater comfort (improved tolerance). LTG Duration 09/22/21 Two Impairment Asymmetry of Hip/lumbar mobility causing strain and pain in bilateral hips Impairment Hip PROM (in deg's): ER is 65 R, 55L, IR is 25 R, 55 L, PSLR is 80 R, 85 L. Lumbar AROM (in deg's): Extension: 3 deg's, Rot: 20 L, 35 R; SB: 10 L, 13 R Pain with walking greater than 1 hour. Short Term Goal (STG) Pt will be educated in proper transfer (log roll) technique and demonstrate improve hip rotation and lumbar extension/ rotation mobility to increase tolerance to exercises. STG Duration 08/08/21 [facility] Goal (LTG) Improve symmetry of hip and lumbar mobility with normalization of gait and pt able to do a exercise without sharp pain and worsening of pain. LTG Duration 09/22/21 One Impairment Lacks appropriate self care HEP. Short Term Goal (STG) Pt will educated in proper posture in standing, sitting & for sleeping. Pt's current exercise reviewed and modified as needed for appropriate exercise. STG Duration 08/08/21 [facility] Goal (LTG) Pt will be independent in a self care HEP appropriate for her ending condition to include hip/trunk mobility and trunk/pelvic stabilization. (06/27/21: Verbal I/S for 4pt TA tightening & Clamshell) LTG Duration 09/22/21 (06/27/21: Progressed) Assessment Summary Assessment Pt is a 41 year old female in her first trimester of who is 3, Parity 1. Testing of R hip for soft tissue dysfunction or SIJ pain was negative. Log roll test was not performed. In prone (on pillow/ pillow under legs), her sacrum appeared R rotated, L SB; R ischial tub was posterior. The positional changes were corrected with manual therapy and the pt had no complaints of pain after treatment. With exercises she shows poor pelvic stability with movement of the R LE (clamshell) as noted with inability to maintain a stable neutral position with clamshell exercise (decreased L pelvic rotation strength). Further core stab needed. Physical Therapy Plan Frequency and Duration Frequency of Treatment 2x/Week Plan of Care Start Date 06/24/21 Plan of Care End Date 09/22/21 Next Visit Focus/Plan Next Note Type Treatment Note Next Visit Plan Assess response to manual therapy. Educate for proper posture ( sit, stand, sleep) (STG #2). Educate pt in DR protection, transfer training, & current ex review for appropriateness (STG #1), then focus on therapeutic ex for core/pelvic stabilization and stretches (L hip ER, R hip IR/ hamstring; trunk flex, L rot & L lateral flex), strengthening PF/R hip (AD/ER) . Gait training as needed. End CP if needed.
--- NOTE | 2021-07-03 11:20 | PT.OTN ---
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 3, Parity 1. Pt is currently 14 weeks . PT-OP-B Current Condition Start: 06/20/21 18:32 Freq: Status: Active Protocol: Document 06/24/21 11:16 LRN (Rec: 06/24/21 12:14 LRN [id number]) Current Condition History of Current Condition Onset Date 3 yrs ago Current Complaints R hip pain, onset of L hip pain 2 days ago. History of Current Condition R hip pain started 3 yrs ago when son was 1.5 yrs old, carrying him on the L hip. R hip pain of insidious onset. has caused a flair up of pain. She is uncomfortable lying on either side, standing for > 30', walking after 30', sitting > 1 hour (unbearable after 2 hrs. If stands > 30', the R hip/LB pain extends into the groin. If doesn't move, the R hip becomes painful, and muscles feel tight. Denies pubic symphysis pain. Pt must shift often in sitting due to the pain. L hip pain just started 2 days ago. Pain in the center of the L buttock, described as constant sharp pain for a couple minutes ( different from R side) 1-2 times a day. Prior Treatments and Tests Chiropractor visits for 6 months, stopped in March due to and lack of pain relief. Pt reports X-rays by Chiropractor showed normal R hip & R SI joints. Future Testing and Treatments Planned None Treatment Goals Patient/Caregiver Goals Goal: improve hip mobility to increase tolerance to exercises. Goal: review ex and get on appropriate ex program. Goal: improve mobility of R hip. GoaL: lying on side with greater comfort. 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 Baseline Function- Recreation/Hobbies Body weight exercising 5x/week . Baseline Function- Other Mom of a 5 yr old. Current Functional Impairments (Reported) Functional Limitations- ADL's Pain with sidelying, sitting or standing >30' and walking greater than 1 hour. Functional Limitations- Work/School Limited with sitting for work. 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 Functional Limitations- Recreation/ Makes adjustments as needed Hobbies for exercise routine due to R hip pain. Personal Factors Other Personal Factors That May Effect due date is December 15, Therapy/Recovery 2021. 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 PT-OP-C Subjective Start: 06/20/21 18:32 Freq: Status: Active Protocol: Document 07/03/21 10:30 SP (Rec: 07/03/21 11:58 SP [id number]) OP-PT Subjective Patient Comments Patient Comments Pt reports felt alot better for about 5 days. Today is having a weakness pain over R adductor and anterior pelvis weakness hasnt' had in years than not sure if coinsides with little pain on L SI area. PT-OP-G Mobility & Gait Start: 06/20/21 18:32 Freq: Status: Active Protocol: Document 06/24/21 11:16 LRN (Rec: 06/24/21 12:14 LRN [id number]) OP Gait Assessment Gait Gait Assistance Required: Independent Able to Maintain Weight Bearing Status Yes During Gait Assistive Devices Assistive Device None Comments Gait Comments R hip excessive sway and lifts up on toes (R) from stance phase to toe off. Stair Climbing Evaluation Evaluation Level of Assist On Stairs Independent Devices Stair Climbing Assistive Devices None Technique/Endurance Stair Climbing Direction Ascend and Descend Stair Climbing Technique Step Over Step PT-OP-H Neuro Start: 06/20/21 18:32 Freq: Status: Active Protocol: Document 06/24/21 11:16 LRN (Rec: 06/24/21 12:14 LRN [id number]) Sensation Evaluation Gross Sensation Gross Sensation WNL PT-OP-J Posture/Palpation/Skin Start: 06/20/21 18:32 Freq: Status: Active Protocol: Document 06/24/21 11:16 LRN (Rec: 06/24/21 12:14 LRN [id number]) Posture Evaluation Position Standing T-Spine Posture Flattened L-Spine Posture Increased Lordosis Pelvis Posture Anteriorly Tilted Weight Distribution Balanced Knee Posture (L) Genu Valgus,(R) Genu Valgus Comments Posture Comments In sitting pt move frequently, leaning and sitting on one hip, then the other. Palpation Assessment Location R Hip Palpation Details Decreased R inferior glide of R sacral base, decreased sacral shear to left, R ischium is posterior L TIFFANY is posterior PT-OP-K Range of Motion Start: 06/20/21 18:32 Freq: Status: Active Protocol: Document 06/24/21 11:16 LRN (Rec: 06/24/21 12:14 LRN [id number]) Lumbar Spine Range of Motion Lumbar Spine Active Degrees Testing Position Standing Flexion 98 Extension 3 Rotation Left 20 Rotation Right 35 Lateral Flexion Left 10 Lateral Flexion Right 13 Comments Ext causes pain in sit bone reagion SB is combo of SB/rot to same side. Hip Goniometric Range of Motion Hip Right Passive Testing Position Supine Straight Leg Raise 80 Internal Rotation 25 External Rotation 65 Left Passive Testing Position Supine Straight Leg Raise 85 Internal Rotation 30 External Rotation 55 PT-OP-L Special Tests Start: 06/20/21 18:32 Freq: Status: Active Protocol: Document 06/27/21 13:40 LRN (Rec: 06/27/21 16:54 LRN [id number]) Special Tests Hip Special Tests Posterior Labral Test Test Results Negative RLE Anterior [facility] Test Test [facility] Flexion Test Results Negative RLE MEGHANN Test Results Negative RLE PT-OP-M Strength Start: 06/20/21 18:32 Freq: Status: Active Protocol: Document 06/24/21 11:16 LRN (Rec: 06/24/21 12:14 LRN [id number]) Hand Reactor Kettle Operator/Pinch Strength Hand Dominance Hand Dominance Right Hip Strength Hip Manual Muscle Testing Right Flexion (L2) 5 Normal Abduction 4 Good Adduction 3+ Fair+ External Rotation 3+ Fair+ Internal Rotation 5 Normal Left Flexion (L2) 5 Normal Abduction 5 Normal Adduction 5 Normal External Rotation 5 Normal Internal Rotation 5 Normal PT-OP-Q Treatments Start: 06/20/21 18:32 Freq: Status: Active Protocol: Document 07/03/21 10:30 SP (Rec: 07/03/21 11:58 SP [id number]) Therapeutic Exercises Supine Exercises TA heel slide Supine Exercise Name added to HEP Side bilateral Reps/Minutes x5 alternating LEs- slow small range Comments cued TA and neutral pelvis- good feedback I feel more equal and stable resisted clamshell Supine Exercise Name added to HEP Resistance Tb #1 loop Reps/Minutes x10 Comments cued TA and neutral pelvis- good feedback I feel more equal and stable Sidelying Exercises Clamshell Sidelying Exercise Name Clamshell (R>L) Comments reports feels to unstable to DC'd Other Exercises self STMs Other Exercise Name R piriformis Equipment Used racquetball on wall gentle rolling Reps/Minutes 30 sec Comments good feedback response Hands/knees Other Exercise Name TA tightening, level pelvis Resistance recheck next tx Equipment Used able to extend LE small 1-2 range with cues TA level pelvis Reps/Minutes 5>10 sec H, x 10 Comments Extra time to determine neutral spine and v cuing to keep neutral. Manual Therapy Treatment Soft Tissue Mobilization adductor longus Body Location R Mobilization Type Strumming,Sustained Pressure Intensity/Depth Moderate Body Position Hooklying Comments good feedback response- decreased tightness iliacus Body Location R Mobilization Type Sustained Pressure,Trigger Point Release Intensity/Depth Moderate Body Position Hooklying Comments good feedback response- decreased tightness Self-Care/Home Management Treatment Education Patient Education Body Mechanics,Home Exercise Program,Joint Protection,Pain Management,Posture Other Education Extra time reviewing seated support alignment w/ pillows/ towel posterior support, side sleep/ supine positioning w/ pillows between LEs vs R hip/ knee front and under ischial tuberosity and thighs/ calves for neutral pelvis support in hooklying with good feedback no pain and supported stabilization at rest. Changed side clamshell to supine hooklying AROM> TB, hanged quadruped LE hydrant to modified LE ext 1-2 with cues TA level pelvis positioning with good feedback response. PT-OP-T Assessment and Plan Start: 06/20/21 18:32 Freq: Status: Active Protocol: Document 07/03/21 10:30 SP (Rec: 07/03/21 11:58 SP [id number]) Physical Therapy Assessment Goals Three Impairment Decreased pelvic/lumbar strength and stability. Impairment R Hip strength: AD 3+/5, AB 4 /5, ER 3+/5. L Hip strength is normal. Pain with sidelying, sitting or standing >30' Short Term Goal (STG) Improve trunk stability with pt able to increase standing tolerance. STG Duration 08/08/21 [facility] Goal (LTG) Improve pelvic stability with pt able to sit and sidelye with greater comfort (improved tolerance). LTG Duration 09/22/21 Two Impairment Asymmetry of Hip/lumbar mobility causing strain and pain in bilateral hips Impairment Hip PROM (in deg's): ER is 65 R, 55L, IR is 25 R, 55 L, PSLR is 80 R, 85 L. Lumbar AROM (in deg's): Extension: 3 deg's, Rot: 20 L, 35 R; SB: 10 L, 13 R Pain with walking greater than 1 hour. Short Term Goal (STG) Pt will be educated in proper transfer (log roll) technique and demonstrate improve hip rotation and lumbar extension/ rotation mobility to increase tolerance to exercises. STG Duration 08/08/21 [facility] Goal (LTG) Improve symmetry of hip and lumbar mobility with normalization of gait and pt able to do a exercise without sharp pain and worsening of pain. LTG Duration 09/22/21 One Impairment Lacks appropriate self care HEP. Short Term Goal (STG) Pt will educated in proper posture in standing, sitting & for sleeping. Pt's current exercise reviewed and modified as needed for appropriate exercise. STG Duration 08/08/21 [facility] Goal (LTG) Pt will be independent in a self care HEP appropriate for her ending condition to include hip/trunk mobility and trunk/pelvic stabilization. (06/27/21: Verbal I/S for 4pt TA tightening & Clamshell) LTG Duration 09/22/21 (06/27/21: Progressed) Assessment Summary Assessment Pt good feedback response to review spinal/ pelvis alignment support and manual noted decrease tension. Modified HEP with good feedback painfree responses with core stability focus. Physical Therapy Plan Frequency and Duration Frequency of Treatment 2x/Week Plan of Care Start Date 06/24/21 Plan of Care End Date 09/22/21 Therapeutic Interventions Therapeutic Interventions Gait Training,Home Exercise Program,Joint Mobilizations, Manual Therapy,Neuromuscular Re-education,Patient/Caregiver Education,Self-Care/Home Management,Soft Tissue Mobilization,Taping, Therapeutic Activities, Therapeutic Exercises Modalities Cold Pack/Ice Massage,Hot Packs Next Visit Focus/Plan Next Note Type Treatment Note Next Visit Plan Assess response to manual therapy, modified HEP recheck next tx and reassess trunk rotation isometric vs introduce TB. Educate for proper posture ( sit, stand, sleep) (STG #2). Educate pt in DR protection, transfer training, & current ex review for appropriateness (STG #1), then focus on therapeutic ex for core/pelvic stabilization and stretches (L hip ER, R hip IR/ hamstring; trunk flex, L rot & L lateral flex), strengthening PF/R hip (AD/ER) . Gait training as needed. End CP if needed.
--- NOTE | 2021-07-10 10:30 | PT-OP ANOTE ---
Pt appts cancelled and 07/10 due to bad weather.
--- NOTE | 2021-07-15 16:45 | PT.OTN ---
Current Diagnoses Strain of muscle, fascia and tendon of right hip, initial encounter (07/15/21) Physical Therapy Treatment Note PT-OP-A Visit Information Start: 06/20/21 18:32 Freq: Status: Active Protocol: Document 07/15/21 11:25 LRN (Rec: 07/15/21 14:43 LRN [id number]) Out-Patient Physical Therapy Visit Information Visit Information Visit Type Treatment Note Visit Start Time 11:25 Visit Stop Time 14:22 Total Visit Minutes 53 Visit Number 4 Evaluation Information Evaluation Date 06/24/21 Precautions Precautions Bilateral varicose vein removal 2010. 3, Parity 1. Pt is currently 14 weeks . PT-OP-B Current Condition Start: 06/20/21 18:32 Freq: Status: Active Protocol: Document 06/24/21 11:16 LRN (Rec: 06/24/21 12:14 LRN [id number]) Current Condition History of Current Condition Onset Date 3 yrs ago Current Complaints R hip pain, onset of L hip pain 2 days ago. History of Current Condition R hip pain started 3 yrs ago when son was 1.5 yrs old, carrying him on the L hip. R hip pain of insidious onset. has caused a flair up of pain. She is uncomfortable lying on either side, standing for > 30', walking after 30', sitting > 1 hour (unbearable after 2 hrs. If stands > 30', the R hip/LB pain extends into the groin. If doesn't move, the R hip becomes painful, and muscles feel tight. Denies pubic symphysis pain. Pt must shift often in sitting due to the pain. L hip pain just started 2 days ago. Pain in the center of the L buttock, described as constant sharp pain for a couple minutes ( different from R side) 1-2 times a day. Prior Treatments and Tests Chiropractor visits for 6 months, stopped in March due to and lack of pain relief. Pt reports X-rays by Chiropractor showed normal R hip & R SI joints. Future Testing and Treatments Planned None Treatment Goals Patient/Caregiver Goals Goal: improve hip mobility to increase tolerance to exercises. Goal: review ex and get on appropriate ex program. Goal: improve mobility of R hip. GoaL: lying on side with greater comfort. 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 Baseline Function- Recreation/Hobbies Body weight exercising 5x/week . Baseline Function- Other Mom of a 5 yr old. Current Functional Impairments (Reported) Functional Limitations- ADL's Pain with sidelying, sitting or standing >30' and walking greater than 1 hour. Functional Limitations- Work/School Limited with sitting for work. 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 Functional Limitations- Recreation/ Makes adjustments as needed Hobbies for exercise routine due to R hip pain. Personal Factors Other Personal Factors That May Effect due date is December 15, Therapy/Recovery 2021. 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 PT-OP-C Subjective Start: 06/20/21 18:32 Freq: Status: Active Protocol: Document 07/15/21 11:25 LRN (Rec: 07/15/21 14:43 LRN [id number]) OP-PT Subjective Patient Comments Patient Comments Was feeling good until Shiva Justa and fell after missing a step, landing on the L foot, then fell to side. Pain now is where it was when it was at it's peak. For a couple days she has layed a lot with L foot elevated. Pain rated in R LB radiating to sit bone and into the groin , 12/19. PT-OP-G Mobility & Gait Start: 06/20/21 18:32 Freq: Status: Active Protocol: Document 06/24/21 11:16 LRN (Rec: 06/24/21 12:14 LRN [id number]) OP Gait Assessment Gait Gait Assistance Required: Independent Able to Maintain Weight Bearing Status Yes During Gait Assistive Devices Assistive Device None Comments Gait Comments R hip excessive sway and lifts up on toes (R) from stance phase to toe off. Stair Climbing Evaluation Evaluation Level of Assist On Stairs Independent Devices Stair Climbing Assistive Devices None Technique/Endurance Stair Climbing Direction Ascend and Descend Stair Climbing Technique Step Over Step PT-OP-H Neuro Start: 06/20/21 18:32 Freq: Status: Active Protocol: Document 06/24/21 11:16 LRN (Rec: 06/24/21 12:14 LRN [id number]) Sensation Evaluation Gross Sensation Gross Sensation WNL PT-OP-J Posture/Palpation/Skin Start: 06/20/21 18:32 Freq: Status: Active Protocol: Document 06/24/21 11:16 LRN (Rec: 06/24/21 12:14 LRN [id number]) Posture Evaluation Position Standing T-Spine Posture Flattened L-Spine Posture Increased Lordosis Pelvis Posture Anteriorly Tilted Weight Distribution Balanced Knee Posture (L) Genu Valgus,(R) Genu Valgus Comments Posture Comments In sitting pt move frequently, leaning and sitting on one hip, then the other. Palpation Assessment Location R Hip Palpation Details Decreased R inferior glide of R sacral base, decreased sacral shear to left, R ischium is posterior L TIFFANY is posterior PT-OP-K Range of Motion Start: 06/20/21 18:32 Freq: Status: Active Protocol: Document 06/24/21 11:16 LRN (Rec: 06/24/21 12:14 LRN [id number]) Lumbar Spine Range of Motion Lumbar Spine Active Degrees Testing Position Standing Flexion 98 Extension 3 Rotation Left 20 Rotation Right 35 Lateral Flexion Left 10 Lateral Flexion Right 13 Comments Ext causes pain in sit bone reagion SB is combo of SB/rot to same side. Hip Goniometric Range of Motion Hip Right Passive Testing Position Supine Straight Leg Raise 80 Internal Rotation 25 External Rotation 65 Left Passive Testing Position Supine Straight Leg Raise 85 Internal Rotation 30 External Rotation 55 PT-OP-L Special Tests Start: 06/20/21 18:32 Freq: Status: Active Protocol: Document 06/27/21 13:40 LRN (Rec: 06/27/21 16:54 LRN [id number]) Special Tests Hip Special Tests Posterior Labral Test Test Results Negative RLE Anterior Labral Test Test Results Negative RLE [facility] Resisted Hip Flexion Test Results Negative RLE MEGHANN Test Results Negative RLE PT-OP-M Strength Start: 06/20/21 18:32 Freq: Status: Active Protocol: Document 06/24/21 11:16 LRN (Rec: 06/24/21 12:14 LRN [id number]) Hand Patient Accounts Specialist/Pinch Strength Hand Dominance Hand Dominance Right Hip Strength Hip Manual Muscle Testing Right Flexion (L2) 5 Normal Abduction 4 Good Adduction 3+ Fair+ External Rotation 3+ Fair+ Internal Rotation 5 Normal Left Flexion (L2) 5 Normal Abduction 5 Normal Adduction 5 Normal External Rotation 5 Normal Internal Rotation 5 Normal PT-OP-Q Treatments Start: 06/20/21 18:32 Freq: Status: Active Protocol: Document 07/15/21 11:25 LRN (Rec: 07/15/21 14:43 LRN [id number]) Manual Therapy Treatment Soft Tissue Mobilization Inferior glide L Sacral base Body Location L Sacral Base Mobilization Type Myofascial Release Intensity/Depth Moderate Body Position Prone Comments Prone on pillow Joint Mobilizations Pelvic rebalancing Joint Sacrum/Innominates Direction 8 point pelvic rebalancing Body Position Prone Comments Prone on pillow. MFR treatment Sacrum Joint R sacral sulcus Direction Inferior Body Position Prone Comments Prone on pillow. MFR treatment Sacral rotation correction Joint Correcting a R sacral rotation (PA R lat sacrum) Body Position Prone Comments Prone on pillow. MFR treatment Ischial Mobility Joint R Ischial Tuberosity Direction PA Body Position Prone Comments Prone on pillow. MFR treatment Sacral TIFFANY Joint PA of R Sacral TIFFANY Direction PA Body Position Prone Comments Prone on pillow. MFR treatment Self-Care/Home Management Treatment Education Patient Education Body Mechanics,Posture Other Education Body mechanics training for transfer supine to sit to stand. Posturing for equal weightbearing and with sitting . Activities Self-Care/Home Management Activities I/S pt to move with proper body mechanics and with TA tight. PT-OP-T Assessment and Plan Start: 06/20/21 18:32 Freq: Status: Active Protocol: Document 07/15/21 11:25 LRN (Rec: 07/15/21 14:43 LRN [id number]) Physical Therapy Assessment Goals Three Impairment Decreased pelvic/lumbar strength and stability. Impairment R Hip strength: AD 3+/5, AB 4 /5, ER 3+/5. L Hip strength is normal. Pain with sidelying, sitting or standing >30' Short Term Goal (STG) Improve trunk stability with pt able to increase standing tolerance. STG Duration 08/08/21 Hat Forming Machine Feeder Goal (LTG) Improve pelvic stability with pt able to sit and sidelye with greater comfort (improved tolerance). LTG Duration 09/22/21 Two Impairment Asymmetry of Hip/lumbar mobility causing strain and pain in bilateral hips Impairment Hip PROM (in deg's): ER is 65 R, 55L, IR is 25 R, 55 L, PSLR is 80 R, 85 L. Lumbar AROM (in deg's): Extension: 3 deg's, Rot: 20 L, 35 R; SB: 10 L, 13 R Pain with walking greater than 1 hour. Short Term Goal (STG) Pt will be educated in proper transfer (log roll) technique and demonstrate improve hip rotation and lumbar extension/ rotation mobility to increase tolerance to exercises. STG Duration 08/08/21 Hat Forming Machine Feeder Goal (LTG) Improve symmetry of hip and lumbar mobility with normalization of gait and pt able to do a exercise without sharp pain and worsening of pain. LTG Duration 09/22/21 One Impairment Lacks appropriate self care HEP. Short Term Goal (STG) Pt will educated in proper posture in standing, sitting & for sleeping. Pt's current exercise reviewed and modified as needed for appropriate exercise. STG Duration 08/08/21 Residential Goal (LTG) Pt will be independent in a self care HEP appropriate for her ending condition to include hip/trunk mobility and trunk/pelvic stabilization. (06/27/21: Verbal I/S for 4pt TA tightening & Clamshell) LTG Duration 09/22/21 (06/27/21: Progressed) Progress Towards Goals Progress Comments R low back/hip pain started 6/ 10, ending with 0/10 pain. Assessment Summary Assessment + response to the manual treatment with reduction in pain last treatment; today with resolution of R buttock pain. Since pt fall, pain in the R buttock returned to initial injury level but resolved with treatment. Pt R innominate appeared to be in anterior rotation, and sacrum in R rotation/SB and TIFFANY sheared to the right; all corrected with treatment. Physical Therapy Plan Frequency and Duration Frequency of Treatment 2x/Week Plan of Care Start Date 06/24/21 Plan of Care End Date 09/22/21 Next Visit Focus/Plan Next Note Type Treatment Note Next Visit Plan Assess response to treatment, and if pt modified and returned to her HEP. Reassess trunk rotation isometric vs introduce TB. Review & issue handout for proper posture (sit, stand, sleep) (STG #2), and transfers . Educate pt in DR protection, & current ex review for appropriateness (STG #1), If pt able to maintain pelvic stability start HEP of pelvic/ core stabilization and stretches (L hip ER, R hip IR/ hamstring; trunk flex, L rot & L lateral flex), strengthening PF/R hip (AD/ER) . Gait training as needed. End CP if needed.
--- NOTE | 2021-07-18 12:29 | PT.OTN ---
Current Diagnoses Strain of muscle, fascia and tendon of right hip, initial encounter (07/18/21) Physical Therapy Treatment Note PT-OP-A Visit Information Start: 06/20/21 18:32 Freq: Status: Active Protocol: Document 07/18/21 11:23 LRN (Rec: 07/18/21 12:28 LRN [id number]) Out-Patient Physical Therapy Visit Information Visit Information Visit Type Treatment Note Visit Start Time 11:23 Visit Stop Time 12:03 Total Visit Minutes 40 Visit Number 5 Evaluation Information Evaluation Date 06/24/21 Precautions Precautions Bilateral varicose vein removal 2010. 3, Parity 1. Pt is currently 14 weeks . PT-OP-B Current Condition Start: 06/20/21 18:32 Freq: Status: Active Protocol: Document 06/24/21 11:16 LRN (Rec: 06/24/21 12:14 LRN [id number]) Current Condition History of Current Condition Onset Date 3 yrs ago Current Complaints R hip pain, onset of L hip pain 2 days ago. History of Current Condition R hip pain started 3 yrs ago when son was 1.5 yrs old, carrying him on the L hip. R hip pain of insidious onset. has caused a flair up of pain. She is uncomfortable lying on either side, standing for > 30', walking after 30', sitting > 1 hour (unbearable after 2 hrs. If stands > 30', the R hip/LB pain extends into the groin. If doesn't move, the R hip becomes painful, and muscles feel tight. Denies pubic symphysis pain. Pt must shift often in sitting due to the pain. L hip pain just started 2 days ago. Pain in the center of the L buttock, described as constant sharp pain for a couple minutes ( different from R side) 1-2 times a day. Prior Treatments and Tests Chiropractor visits for 6 months, stopped in March due to and lack of pain relief. Pt reports X-rays by Chiropractor showed normal R hip & R SI joints. Future Testing and Treatments Planned None Treatment Goals Patient/Caregiver Goals Goal: improve hip mobility to increase tolerance to exercises. Goal: review ex and get on appropriate ex program. Goal: improve mobility of R hip. GoaL: lying on side with greater comfort. 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 Baseline Function- Recreation/Hobbies Body weight exercising 5x/week . Baseline Function- Other Mom of a 5 yr old. Current Functional Impairments (Reported) Functional Limitations- ADL's Pain with sidelying, sitting or standing >30' and walking greater than 1 hour. Functional Limitations- Work/School Limited with sitting for work. 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 Functional Limitations- Recreation/ Makes adjustments as needed Hobbies for exercise routine due to R hip pain. Personal Factors Other Personal Factors That May Effect due date is December 15, Therapy/Recovery 2021. 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 PT-OP-C Subjective Start: 06/20/21 18:32 Freq: Status: Active Protocol: Document 07/18/21 11:23 LRN (Rec: 07/18/21 12:28 LRN [id number]) OP-PT Subjective Patient Comments Patient Comments NO pain. Was sore after last session for the night, but woke the next day without pain . PT-OP-G Mobility & Gait Start: 06/20/21 18:32 Freq: Status: Active Protocol: Document 06/24/21 11:16 LRN (Rec: 06/24/21 12:14 LRN [id number]) OP Gait Assessment Gait Gait Assistance Required: Independent Able to Maintain Weight Bearing Status Yes During Gait Assistive Devices Assistive Device None Comments Gait Comments R hip excessive sway and lifts up on toes (R) from stance phase to toe off. Stair Climbing Evaluation Evaluation Level of Assist On Stairs Independent Devices Stair Climbing Assistive Devices None Technique/Endurance Stair Climbing Direction Ascend and Descend Stair Climbing Technique Step Over Step PT-OP-H Neuro Start: 06/20/21 18:32 Freq: Status: Active Protocol: Document 06/24/21 11:16 LRN (Rec: 06/24/21 12:14 LRN [id number]) Sensation Evaluation Gross Sensation Gross Sensation WNL PT-OP-J Posture/Palpation/Skin Start: 06/20/21 18:32 Freq: Status: Active Protocol: Document 06/24/21 11:16 LRN (Rec: 06/24/21 12:14 LRN [id number]) Posture Evaluation Position Standing T-Spine Posture Flattened L-Spine Posture Increased Lordosis Pelvis Posture Anteriorly Tilted Weight Distribution Balanced Knee Posture (L) Genu Valgus,(R) Genu Valgus Comments Posture Comments In sitting pt move frequently, leaning and sitting on one hip, then the other. Palpation Assessment Location R Hip Palpation Details Decreased R inferior glide of R sacral base, decreased sacral shear to left, R ischium is posterior L TIFFANY is posterior PT-OP-K Range of Motion Start: 06/20/21 18:32 Freq: Status: Active Protocol: Document 06/24/21 11:16 LRN (Rec: 06/24/21 12:14 LRN [id number]) Lumbar Spine Range of Motion Lumbar Spine Active Degrees Testing Position Standing Flexion 98 Extension 3 Rotation Left 20 Rotation Right 35 Lateral Flexion Left 10 Lateral Flexion Right 13 Comments Ext causes pain in sit bone reagion SB is combo of SB/rot to same side. Hip Goniometric Range of Motion Hip Right Passive Testing Position Supine Straight Leg Raise 80 Internal Rotation 25 External Rotation 65 Left Passive Testing Position Supine Straight Leg Raise 85 Internal Rotation 30 External Rotation 55 PT-OP-L Special Tests Start: 06/20/21 18:32 Freq: Status: Active Protocol: Document 06/27/21 13:40 LRN (Rec: 06/27/21 16:54 LRN [id number]) Special Tests Hip Special Tests Posterior Labral Test Test Results Negative RLE Anterior Labral Test Test Results Negative RLE [facility] Resisted Hip Flexion Test Results Negative RLE MEGHANN Test Results Negative RLE PT-OP-M Strength Start: 06/20/21 18:32 Freq: Status: Active Protocol: Document 06/24/21 11:16 LRN (Rec: 06/24/21 12:14 LRN [id number]) Hand Tester Operator Helper/Pinch Strength Hand Dominance Hand Dominance Right Hip Strength Hip Manual Muscle Testing Right Flexion (L2) 5 Normal Abduction 4 Good Adduction 3+ Fair+ External Rotation 3+ Fair+ Internal Rotation 5 Normal Left Flexion (L2) 5 Normal Abduction 5 Normal Adduction 5 Normal External Rotation 5 Normal Internal Rotation 5 Normal PT-OP-Q Treatments Start: 12/10/21 18:32 Freq: Status: Active Protocol: Document 07/18/21 11:23 LRN (Rec: 07/18/21 12:28 LRN [id number]) Therapeutic Exercises Sitting Exercises Cat/Camel Sitting Exercise Name Cat/camel (flex UB/LB, ext mid thoracic) Reps/Minutes 6x Trunk flex stretch Sitting Exercise Name Forward bend stretch Reps/Minutes Short hold f/b return segmentally Shoulder rolls Sitting Exercise Name Active shoulder rolls Side bilateral Reps/Minutes 10x each Arm circles Sitting Exercise Name Holding in sup & in neutral circles Side bilateral Reps/Minutes 10x each Neck circles Sitting Exercise Name Active neck rotation (around the clock) Side bilateral Reps/Minutes 3x each Cerivcal Rot/SB stretch Sitting Exercise Name Cervical Rot & SB stretch Side bilateral Reps/Minutes 2' Standing Exercises SLS/Hip & Quad stretch Standing Exercise Name SLS - Hip & Quad stretch Side bilateral Reps/Minutes 10H x 5 each SLS Standing Exercise Name SLS - heel to buttock Side bilateral Reps/Minutes 5 hold x 4 each Gastroc/Soleus stretch Standing Exercise Name Gastroc/Soleus stretch Reps/Minutes 10H x 2 Trunk rot stretch Standing Exercise Name Active trunk rot Side bilateral Reps/Minutes 5 H x 3 Trunk SB stretch Standing Exercise Name Active trunk SB Side bilateral Reps/Minutes 5 H x 3 Other Exercises Child's Pose Other Exercise Name Child's pose stretch Reps/Minutes 2' Hands/knees Other Exercise Name TA Tightening Reps/Minutes Hold 2 breaths x 10 Comments Extra time to find neutral spine. Self-Care/Home Management Treatment Education Patient Education Posture Other Education Pt education in proper standing posture and areas to focus on to combat postural changes from . Activities Self-Care/Home Management Activities Issued & reviewed HEP: - TA tigthtening in 4 pt. - General stretches for . - Trunk/Quad/Gastroc stretch PT-OP-T Assessment and Plan Start: 06/20/21 18:32 Freq: Status: Active Protocol: Document 07/18/21 11:23 LRN (Rec: 07/18/21 12:28 LRN [id number]) Physical Therapy Assessment Goals Three Impairment Decreased pelvic/lumbar strength and stability. Impairment R Hip strength: AD 3+/5, AB 4 /5, ER 3+/5. L Hip strength is normal. Pain with sidelying, sitting or standing >30' Short Term Goal (STG) Improve trunk stability with pt able to increase standing tolerance. (07/18/21: Pt reports no pain with standing) STG Duration 08/08/21 (07/18/21: MET GOAL, No pain). Infection Control Specialist Goal (LTG) Improve pelvic stability with pt able to sit and sidelye with greater comfort (improved tolerance). LTG Duration 09/22/21 (07/18/21: MET GOAL) Two Impairment Asymmetry of Hip/lumbar mobility causing strain and pain in bilateral hips Impairment Hip PROM (in deg's): ER is 65 R, 55L, IR is 25 R, 55 L, PSLR is 80 R, 85 L. Lumbar AROM (in deg's): Extension: 3 deg's, Rot: 20 L, 35 R; SB: 10 L, 13 R Pain with walking greater than 1 hour. Short Term Goal (STG) Pt will be educated in proper transfer (log roll) technique and demonstrate improve hip rotation and lumbar extension/ rotation mobility to increase tolerance to exercises. STG Duration 08/08/21 Detention Goal (LTG) Improve symmetry of hip and lumbar mobility with normalization of gait and pt able to do a exercise without sharp pain and worsening of pain. LTG Duration 09/22/21 One Impairment Lacks appropriate self care HEP. Short Term Goal (STG) Pt will educated in proper posture in standing, sitting & for sleeping. Pt's current exercise reviewed and modified as needed for appropriate exercise. STG Duration 08/08/21 (07/18/21: Partially met goal - educated pt in proper posture) Detention Goal (LTG) Pt will be independent in a self care HEP appropriate for her ending condition to include hip/trunk mobility and trunk/pelvic stabilization. (06/27/21: Verbal I/S for 4pt TA tightening & Clamshell) (07/18/21: Added trunk mobility HEP) LTG Duration 09/22/21 (07/18/20: Progressed ) Progress Towards Goals Progress Comments Goal #3 MET due to no R hip/ LBP. Pt educated in proper posturing. Assessment Summary Assessment + response to last treatment with pt now painfree. Pt tolerated general stretches well and start of TA strengthening without complaints of discomfort. Pt SLS balance is decreased as expected. Physical Therapy Plan Frequency and Duration Frequency of Treatment 2x/Week Plan of Care Start Date 06/24/21 Plan of Care End Date 09/22/21 Next Visit Focus/Plan Next Note Type Treatment Note Next Visit Plan Assess response to HEP stretches. Review & issue handout for proper posture (sit, stand, sleep) (STG #2), and transfers . Educate pt in DR protection, & current ex review for appropriateness and discuss return to program (STG #1), Progress HEP of pelvic/core stabilization (progress rot with TB if pt tols). Add strengthening PF/R hip (AD /ER). Recheck hip mobility for needed stretches (L hip ER, R hip IR/hamstring) Note to pt to focus trunk stretch for L rot & L lateral flex), Gait training as needed. End CP if needed.
--- NOTE | 2021-07-22 12:23 | PT.OTN ---
Current Diagnoses Strain of muscle, fascia and tendon of right hip, initial encounter (07/22/21) Physical Therapy Treatment Note PT-OP-A Visit Information Start: 06/20/21 18:32 Freq: Status: Active Protocol: Document 07/22/21 11:23 LRN (Rec: 07/22/21 12:21 LRN [id number]) Out-Patient Physical Therapy Visit Information Visit Information Visit Type Treatment Note Visit Start Time 11:23 Visit Stop Time 12:13 Total Visit Minutes 50 Visit Number 6 Evaluation Information Evaluation Date 06/24/21 Precautions Precautions Bilateral varicose vein removal 2010. 3, Parity 1. Pt is currently 14 weeks . PT-OP-B Current Condition Start: 06/20/21 18:32 Freq: Status: Active Protocol: Document 06/24/21 11:16 LRN (Rec: 06/24/21 12:14 LRN [id number]) Current Condition History of Current Condition Onset Date 3 yrs ago Current Complaints R hip pain, onset of L hip pain 2 days ago. History of Current Condition R hip pain started 3 yrs ago when son was 1.5 yrs old, carrying him on the L hip. R hip pain of insidious onset. has caused a flair up of pain. She is uncomfortable lying on either side, standing for > 30', walking after 30', sitting > 1 hour (unbearable after 2 hrs. If stands > 30', the R hip/LB pain extends into the groin. If doesn't move, the R hip becomes painful, and muscles feel tight. Denies pubic symphysis pain. Pt must shift often in sitting due to the pain. L hip pain just started 2 days ago. Pain in the center of the L buttock, described as constant sharp pain for a couple minutes ( different from R side) 1-2 times a day. Prior Treatments and Tests Chiropractor visits for 6 months, stopped in March due to and lack of pain relief. Pt reports X-rays by Chiropractor showed normal R hip & R SI joints. Future Testing and Treatments Planned None Treatment Goals Patient/Caregiver Goals Goal: improve hip mobility to increase tolerance to exercises. Goal: review ex and get on appropriate ex program. Goal: improve mobility of R hip. GoaL: lying on side with greater comfort. 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 Baseline Function- Recreation/Hobbies Body weight exercising 5x/week . Baseline Function- Other Mom of a 5 yr old. Current Functional Impairments (Reported) Functional Limitations- ADL's Pain with sidelying, sitting or standing >30' and walking greater than 1 hour. Functional Limitations- Work/School Limited with sitting for work. 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 Functional Limitations- Recreation/ Makes adjustments as needed Hobbies for exercise routine due to R hip pain. Personal Factors Other Personal Factors That May Effect due date is December 15, Therapy/Recovery 2021. 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 PT-OP-C Subjective Start: 06/20/21 18:32 Freq: Status: Active Protocol: Document 07/22/21 11:23 LRN (Rec: 07/22/21 12: LRN [id number]) OP-PT Subjective Patient Comments Patient Comments Pain a couple of days after therapy, but now has no pain. PT-OP-G Mobility & Gait Start: 06/20/21 18:32 Freq: Status: Active Protocol: Document 06/24/21 11:16 LRN (Rec: 06/24/21 12:14 LRN [id number]) OP Gait Assessment Gait Gait Assistance Required: Independent Able to Maintain Weight Bearing Status Yes During Gait Assistive Devices Assistive Device None Comments Gait Comments R hip excessive sway and lifts up on toes (R) from stance phase to toe off. Stair Climbing Evaluation Evaluation Level of Assist On Stairs Independent Devices Stair Climbing Assistive Devices None Technique/Endurance Stair Climbing Direction Ascend and Descend Stair Climbing Technique Step Over Step PT-OP-H Neuro Start: 06/20/21 18:32 Freq: Status: Active Protocol: Document 06/24/21 11:16 LRN (Rec: 06/24/21 12:14 LRN [id number]) Sensation Evaluation Gross Sensation Gross Sensation WNL PT-OP-J Posture/Palpation/Skin Start: 06/20/21 18:32 Freq: Status: Active Protocol: Document 06/24/21 11:16 LRN (Rec: 06/24/21 12:14 LRN [id number]) Posture Evaluation Position Standing T-Spine Posture Flattened L-Spine Posture Increased Lordosis Pelvis Posture Anteriorly Tilted Weight Distribution Balanced Knee Posture (L) Genu Valgus,(R) Genu Valgus Comments Posture Comments In sitting pt move frequently, leaning and sitting on one hip, then the other. Palpation Assessment Location R Hip Palpation Details Decreased R inferior glide of R sacral base, decreased sacral shear to left, R ischium is posterior L TIFFANY is posterior PT-OP-K Range of Motion Start: 06/20/21 18:32 Freq: Status: Active Protocol: Document 06/24/21 11:16 LRN (Rec: 06/24/21 12:14 LRN [id number]) Lumbar Spine Range of Motion Lumbar Spine Active Degrees Testing Position Standing Flexion 98 Extension 3 Rotation Left 20 Rotation Right 35 Lateral Flexion Left 10 Lateral Flexion Right 13 Comments Ext causes pain in sit bone reagion SB is combo of SB/rot to same side. Hip Goniometric Range of Motion Hip Right Passive Testing Position Supine Straight Leg Raise 80 Internal Rotation 25 External Rotation 65 Left Passive Testing Position Supine Straight Leg Raise 85 Internal Rotation 30 External Rotation 55 PT-OP-L Special Tests Start: 06/20/21 18:32 Freq: Status: Active Protocol: Document 06/27/21 13:40 LRN (Rec: 06/27/21 16:54 LRN [id number]) Special Tests Hip Special Tests Posterior Labral Test Test Results Negative RLE Anterior Labral Test Test Results Negative RLE [facility] Resisted Hip Flexion Test Results Negative RLE MEGHANN Test Results Negative RLE PT-OP-M Strength Start: 06/20/21 18:32 Freq: Status: Active Protocol: Document 06/24/21 11:16 LRN (Rec: 06/24/21 12:14 LRN [id number]) Hand Blasting Contract Miner/Pinch Strength Hand Dominance Hand Dominance Right Hip Strength Hip Manual Muscle Testing Right Flexion (L2) 5 Normal Abduction 4 Good Adduction 3+ Fair+ External Rotation 3+ Fair+ Internal Rotation 5 Normal Left Flexion (L2) 5 Normal Abduction 5 Normal Adduction 5 Normal External Rotation 5 Normal Internal Rotation 5 Normal PT-OP-Q Treatments Start: 06/20/21 18:32 Freq: Status: Active Protocol: Document 07/22/21 11:23 LRN (Rec: 07/22/21 12:21 LRN [id number]) Therapeutic Exercises Sitting Exercises Knees roll in/out Sitting Exercise Name Knee rolls in/out/PF/Breathing Side bilateral Reps/Minutes 5' Quick and Long hold PF Comments Much v cuing throughout ex needed to coordinate contractions/mvmts Cat/Camel Sitting Exercise Name Cat/camel (flex UB/LB, ext mid thoracic) Reps/Minutes 6x Trunk flex stretch Sitting Exercise Name Forward bend stretch Reps/Minutes Short hold f/b return segmentally Shoulder rolls Sitting Exercise Name Active shoulder rolls Side bilateral Reps/Minutes 10x each Arm circles Sitting Exercise Name Holding in sup & in neutral circles Side bilateral Reps/Minutes 15-10x each Neck circles Sitting Exercise Name Active neck rotation (around the clock) Side bilateral Reps/Minutes 2x each Comments v cues to slow mvmt Cerivcal Rot/SB stretch Sitting Exercise Name Cervical Rot & SB stretch Side bilateral Reps/Minutes 2' (arms out to side) Trunk Rot Sitting Exercise Name Active trunk rot Side bilateral Reps/Minutes 5x Standing Exercises Wall push up Standing Exercise Name Wall push up with min mvmt, preventing upper T/S ext & hip flex Reps/Minutes 8' ex w/PF/breathing/body neutral spine positioning focus. Comments phys & v cuing. Used ruler along spine for neutral spine awareness Scapular protraction Standing Exercise Name Scapular protraction with arms on wall Side bilateral Reps/Minutes 15x Comments Much phy cuing at chest and v cuing to prevent reverse curve of upper T/S Squats Standing Exercise Name Squat/breath out/PF tighen Reps/Minutes 10x Comments Extra time for proper coordination of ex training PT-OP-R Modalities Start: 06/20/21 18:32 Freq: Status: Active Protocol: Document 07/22/21 11:23 LRN (Rec: 07/22/21 12:21 LRN [id number]) Hot Pack/Cold Pack Treatment Cold Pack Location Low Back on Pillow Patient Position Prone Treatment Duration (minutes) 10 Patient Tolerance Good PT-OP-T Assessment and Plan Start: 06/20/21 18:32 Freq: Status: Active Protocol: Document 07/22/21 11:23 LRN (Rec: 07/22/21 12:21 LRN [id number]) Physical Therapy Assessment Goals Three Impairment Decreased pelvic/lumbar strength and stability. Impairment R Hip strength: AD 3+/5, AB 4 /5, ER 3+/5. L Hip strength is normal. Pain with sidelying, sitting or standing >30' Short Term Goal (STG) Improve trunk stability with pt able to increase standing tolerance. (07/18/21: Pt reports no pain with standing) STG Duration 08/08/21 (07/18/21: MET GOAL, No pain). Skilled Nursing Goal (LTG) Improve pelvic stability with pt able to sit and sidelye with greater comfort (improved tolerance). LTG Duration 09/22/21 (07/18/21: MET GOAL) Two Impairment Asymmetry of Hip/lumbar mobility causing strain and pain in bilateral hips Impairment Hip PROM (in deg's): ER is 65 R, 55L, IR is 25 R, 55 L, PSLR is 80 R, 85 L. Lumbar AROM (in deg's): Extension: 3 deg's, Rot: 20 L, 35 R; SB: 10 L, 13 R Pain with walking greater than 1 hour. Short Term Goal (STG) Pt will be educated in proper transfer (log roll) technique and demonstrate improve hip rotation and lumbar extension/ rotation mobility to increase tolerance to exercises. STG Duration 08/08/21 Skilled Nursing Goal (LTG) Improve symmetry of hip and lumbar mobility with normalization of gait and pt able to do a exercise without sharp pain and worsening of pain. LTG Duration 09/22/21 One Impairment Lacks appropriate self care HEP. Short Term Goal (STG) Pt will educated in proper posture in standing, sitting & for sleeping. Pt's current exercise reviewed and modified as needed for appropriate exercise. STG Duration 08/08/21 (07/18/21: Partially met goal - educated pt in proper posture) Skilled Nursing Goal (LTG) Pt will be independent in a self care HEP appropriate for her ending condition to include hip/trunk mobility and trunk/pelvic stabilization. (06/27/21: Verbal I/S for 4pt TA tightening & Clamshell) (07/18/21: Added trunk mobility HEP) LTG Duration 09/22/21 (07/18/20: Progressed ) Progress Towards Goals Progress Comments Progressed ex program with c core strengthening, and addition of PF strengthening. Assessment Summary Assessment Fair response to HEP stretches . Pt initially had increased pain for 2 days after last session with full recovery and no pain complaints today. Pain may have been due to SLS standing exercises and Quad stretch. Pt tolerated closed chain exercises well and no complaints of pain. Loss of neutral body positioning appears due to change in head position; therefore will need to monitor head positioning with exercises. Physical Therapy Plan Frequency and Duration Frequency of Treatment 2x/Week Plan of Care Start Date 06/24/21 Plan of Care End Date 09/22/21 Next Visit Focus/Plan Next Note Type Treatment Note Next Visit Plan Review & issue handout for proper posture (sit, stand, sleep) (STG #2), and transfers . Issue HEP of sitting roll in/ out ex with PF/breathing. Educate pt in DR protection, & current ex review for appropriateness and discuss return to program (STG #1), Add strengthening PF/R hip (AD /ER). Progress HEP of pelvic/core stabilization (progress rot with TB if pt tols). Recheck hip mobility for needed stretches (L hip ER, R hip IR/hamstring) Note to pt to focus trunk stretch for L rot & L lateral flex), End CP if needed.
--- NOTE | 2021-07-25 17:10 | PT.OTN ---
Current Diagnoses Strain of muscle, fascia and tendon of right hip, initial encounter (07/25/21) Physical Therapy Treatment Note PT-OP-A Visit Information Start: 06/20/21 18:32 Freq: Status: Active Protocol: Document 07/25/21 11:28 LRN (Rec: 07/25/21 12:25 LRN [id number]) Out-Patient Physical Therapy Visit Information Visit Information Visit Type Treatment Note Visit Start Time 11:28 Visit Stop Time 12:18 Total Visit Minutes 50 Visit Number 6 Evaluation Information Evaluation Date 06/24/21 Precautions Precautions Bilateral varicose vein removal 2010. 3, Parity 1. Pt is currently 14 weeks . PT-OP-B Current Condition Start: 06/20/21 18:32 Freq: Status: Active Protocol: Document 06/24/21 11:16 LRN (Rec: 06/24/21 12:14 LRN [id number]) Current Condition History of Current Condition Onset Date 3 yrs ago Current Complaints R hip pain, onset of L hip pain 2 days ago. History of Current Condition R hip pain started 3 yrs ago when son was 1.5 yrs old, carrying him on the L hip. R hip pain of insidious onset. has caused a flair up of pain. She is uncomfortable lying on either side, standing for > 30', walking after 30', sitting > 1 hour (unbearable after 2 hrs. If stands > 30', the R hip/LB pain extends into the groin. If doesn't move, the R hip becomes painful, and muscles feel tight. Denies pubic symphysis pain. Pt must shift often in sitting due to the pain. L hip pain just started 2 days ago. Pain in the center of the L buttock, described as constant sharp pain for a couple minutes ( different from R side) 1-2 times a day. Prior Treatments and Tests Chiropractor visits for 6 months, stopped in March due to and lack of pain relief. Pt reports X-rays by Chiropractor showed normal R hip & R SI joints. Future Testing and Treatments Planned None Treatment Goals Patient/Caregiver Goals Goal: improve hip mobility to increase tolerance to exercises. Goal: review ex and get on appropriate ex program. Goal: improve mobility of R hip. GoaL: lying on side with greater comfort. 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 Baseline Function- Recreation/Hobbies Body weight exercising 5x/week . Baseline Function- Other Mom of a 5 yr old. Current Functional Impairments (Reported) Functional Limitations- ADL's Pain with sidelying, sitting or standing >30' and walking greater than 1 hour. Functional Limitations- Work/School Limited with sitting for work. 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 Functional Limitations- Recreation/ Makes adjustments as needed Hobbies for exercise routine due to R hip pain. Personal Factors Other Personal Factors That May Effect due date is December 15, Therapy/Recovery 2021. 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 PT-OP-C Subjective Start: 06/20/21 18:32 Freq: Status: Active Protocol: Document 07/25/21 11:28 LRN (Rec: 07/25/21 12:25 LRN [id number]) OP-PT Subjective Patient Comments Patient Comments States she was sore then next day and also did 6 hrs of shopping. Did Pilates this morning and helped with the pain. Now pain is 6/10. Feels good after therapy. PT-OP-G Mobility & Gait Start: 06/20/21 18:32 Freq: Status: Active Protocol: Document 06/24/21 11:16 LRN (Rec: 06/24/21 12:14 LRN [id number]) OP Gait Assessment Gait Gait Assistance Required: Independent Able to Maintain Weight Bearing Status Yes During Gait Assistive Devices Assistive Device None Comments Gait Comments R hip excessive sway and lifts up on toes (R) from stance phase to toe off. Stair Climbing Evaluation Evaluation Level of Assist On Stairs Independent Devices Stair Climbing Assistive Devices None Technique/Endurance Stair Climbing Direction Ascend and Descend Stair Climbing Technique Step Over Step PT-OP-H Neuro Start: 06/20/21 18:32 Freq: Status: Active Protocol: Document 06/24/21 11:16 LRN (Rec: 06/24/21 12:14 LRN [id number]) Sensation Evaluation Gross Sensation Gross Sensation WNL PT-OP-J Posture/Palpation/Skin Start: 06/20/21 18:32 Freq: Status: Active Protocol: Document 06/24/21 11:16 LRN (Rec: 06/24/21 12:14 LRN [id number]) Posture Evaluation Position Standing T-Spine Posture Flattened L-Spine Posture Increased Lordosis Pelvis Posture Anteriorly Tilted Weight Distribution Balanced Knee Posture (L) Genu Valgus,(R) Genu Valgus Comments Posture Comments In sitting pt move frequently, leaning and sitting on one hip, then the other. Palpation Assessment Location R Hip Palpation Details Decreased R inferior glide of R sacral base, decreased sacral shear to left, R ischium is posterior L TIFFANY is posterior PT-OP-K Range of Motion Start: 06/20/21 18:32 Freq: Status: Active Protocol: Document 06/24/21 11:16 LRN (Rec: 06/24/21 12:14 LRN [id number]) Lumbar Spine Range of Motion Lumbar Spine Active Degrees Testing Position Standing Flexion 98 Extension 3 Rotation Left 20 Rotation Right 35 Lateral Flexion Left 10 Lateral Flexion Right 13 Comments Ext causes pain in sit bone reagion SB is combo of SB/rot to same side. Hip Goniometric Range of Motion Hip Right Passive Testing Position Supine Straight Leg Raise 80 Internal Rotation 25 External Rotation 65 Left Passive Testing Position Supine Straight Leg Raise 85 Internal Rotation 30 External Rotation 55 PT-OP-L Special Tests Start: 06/20/21 18:32 Freq: Status: Active Protocol: Document 06/27/21 13:40 LRN (Rec: 06/27/21 16:54 LRN [id number]) Special Tests Hip Special Tests Posterior Labral Test Test Results Negative RLE Anterior Labral Test Test Results Negative RLE [facility] Resisted Hip Flexion Test Results Negative RLE MEGHANN Test Results Negative RLE PT-OP-M Strength Start: 06/20/21 18:32 Freq: Status: Active Protocol: Document 06/24/21 11:16 LRN (Rec: 06/24/21 12:14 LRN [id number]) Hand Meat Products Demonstrator/Pinch Strength Hand Dominance Hand Dominance Right Hip Strength Hip Manual Muscle Testing Right Flexion (L2) 5 Normal Abduction 4 Good Adduction 3+ Fair+ External Rotation 3+ Fair+ Internal Rotation 5 Normal Left Flexion (L2) 5 Normal Abduction 5 Normal Adduction 5 Normal External Rotation 5 Normal Internal Rotation 5 Normal PT-OP-Q Treatments Start: 06/20/21 18:32 Freq: Status: Active Protocol: Document 07/25/21 11:28 LRN (Rec: 07/25/21 12:25 LRN [id number]) Therapeutic Exercises Sitting Exercises Knees roll in/out Sitting Exercise Name Knee rolls in/out/PF/Breathing Side bilateral Reps/Minutes 5' Quick and Long hold PF Comments Much v cuing throughout ex needed to coordinate contractions/mvmts Other Exercises Child's Pose Other Exercise Name Child's pose stretch Reps/Minutes 2' Hands/knees Other Exercise Name TA Tightening Reps/Minutes Hold 2 breaths x 10 Comments Extra time to find neutral spine. Manual Therapy Treatment Joint Mobilizations Pelvic rebalancing Joint Sacrum/Innominates Direction 8 point pelvic rebalancing Body Position Prone Reps/Duration 18' Comments Prone on pillow. MFR treatment Decr'd mobility with PA of R TIFFANY & R Ischium. Sacrum Joint R TIFFANY of sacrum Direction Shear to left Body Position Prone Comments Prone on pillow. MFR treatment Ischial Mobility Joint R Ischial Tuberosity Direction PA Body Position Prone Comments Prone on pillow. MFR treatment Sacral TIFFANY Joint PA of R Sacral TIFFANY Direction PA Body Position Prone Comments Prone on pillow. MFR treatment Self-Care/Home Management Treatment Education Other Education Pt education and review of proper posture in sitting, standing and sidelie for sleeping. Educated pt in use of cold pack for pain management. Activities Self-Care/Home Management Activities I/S pt she can add sidelie clamshell over the weekend if her back feels good, but to start 5 reps and progress as tolerated to both sides. Reviewed stability positioning . PT-OP-R Modalities Start: 06/20/21 18:32 Freq: Status: Active Protocol: Document 07/25/21 11:28 LRN (Rec: 07/25/21 12:25 LRN [id number]) Hot Pack/Cold Pack Treatment Cold Pack Location Low Back on Pillow Patient Position Prone Treatment Duration (minutes) 10 Patient Tolerance Good PT-OP-T Assessment and Plan Start: 06/20/21 18:32 Freq: Status: Active Protocol: Document 07/25/21 11:28 LRN (Rec: 07/25/21 12:25 LRN [id number]) Physical Therapy Assessment Goals Two Impairment Asymmetry of Hip/lumbar mobility causing strain and pain in bilateral hips Impairment Hip PROM (in deg's): ER is 65 R, 55L, IR is 25 R, 55 L, PSLR is 80 R, 85 L. Lumbar AROM (in deg's): Extension: 3 deg's, Rot: 20 L, 35 R; SB: 10 L, 13 R Pain with walking greater than 1 hour. Short Term Goal (STG) Pt will be educated in proper transfer (log roll) technique and demonstrate improve hip rotation and lumbar extension/ rotation mobility to increase tolerance to exercises. STG Duration 08/08/21 Super[employer] Goal (LTG) Improve symmetry of hip and lumbar mobility with normalization of gait and pt able to do a exercise without sharp pain and worsening of pain. (07/25/21: No sharp pain, but constant ache). LTG Duration 09/22/21 (07/25/21: Improved) One Impairment Lacks appropriate self care HEP. Short Term Goal (STG) Pt will educated in proper posture in standing, sitting & for sleeping. Pt's current exercise reviewed and modified as needed for appropriate exercise. STG Duration 08/08/21 (07/25/21: MET GOAL) [facility]pc Goal (LTG) Pt will be independent in a self care HEP appropriate for her ending condition to include hip/trunk mobility and trunk/pelvic stabilization. (06/27/21: Verbal I/S for 4pt TA tightening & Clamshell) (07/18/21: Added trunk mobility HEP) LTG Duration 09/22/21 (07/18/20: Progressed ) Progress Towards Goals Progress Comments No complaints of sharp pain. Assessment Summary Assessment Decr'd mobility with PA of R TIFFANY & R Ischium. Tight at R QL along Iliac crest and at latera end of QL Pt appears to have a good understanding of proper posturing in all positions and with transfers; therefore handouts not needed. L Sidelying she finds a pillow under hips uncomfortable, pt recommended to try pilow support behind LB /Pelvis. Pt is not using enough cold packs to reduce inflammation after her rigorous activities. Pt reported feeling good after therapy. Physical Therapy Plan Frequency and Duration Frequency of Treatment 2x/Week Plan of Care Start Date 12/14/21 Plan of Care End Date 09/22/21 Next Visit Focus/Plan Next Note Type Treatment Note Next Visit Plan Assess if pt able to start sidelie clamshell ex, transfer technique into bed (log rolling, Goal #2), and assess hip mobility for improvement. Assess for needed stretches (L hip ER, R hip IR/hamstring) Issue HEP of sitting roll in/ out ex with PF/breathing. Educate pt in DR protection, & current ex review for appropriateness and discuss return to program (STG #1), Add strengthening PF/R hip (AD /ER). Progress HEP of pelvic/core stabilization (progress rot with TB if pt tols). Note to pt to focus trunk stretch for L rot & L lateral flex), End CP if needed.
--- NOTE | 2021-07-29 12:24 | PT.OTN ---
Current Diagnoses Strain of muscle, fascia and tendon of right hip, initial encounter (07/29/21) Physical Therapy Treatment Note PT-OP-A Visit Information Start: 06/20/21 18:32 Freq: Status: Active Protocol: Document 07/29/21 11:20 LRN (Rec: 07/29/21 12:23 LRN [id number]) Out-Patient Physical Therapy Visit Information Visit Information Visit Type Treatment Note Visit Start Time 11:21 Visit Stop Time 12:09 Total Visit Minutes 48 Visit Number 7 Evaluation Information Evaluation Date 06/24/21 Precautions Precautions Bilateral varicose vein removal 2010. 3, Parity 1. Pt is currently 14 weeks . PT-OP-B Current Condition Start: 06/20/21 18:32 Freq: Status: Active Protocol: Document 06/24/21 11:16 LRN (Rec: 06/24/21 12:14 LRN [id number]) Current Condition History of Current Condition Onset Date 3 yrs ago Current Complaints R hip pain, onset of L hip pain 2 days ago. History of Current Condition R hip pain started 3 yrs ago when son was 1.5 yrs old, carrying him on the L hip. R hip pain of insidious onset. has caused a flair up of pain. She is uncomfortable lying on either side, standing for > 30', walking after 30', sitting > 1 hour (unbearable after 2 hrs. If stands > 30', the R hip/LB pain extends into the groin. If doesn't move, the R hip becomes painful, and muscles feel tight. Denies pubic symphysis pain. Pt must shift often in sitting due to the pain. L hip pain just started 2 days ago. Pain in the center of the L buttock, described as constant sharp pain for a couple minutes ( different from R side) 1-2 times a day. Prior Treatments and Tests Chiropractor visits for 6 months, stopped in March due to and lack of pain relief. Pt reports X-rays by Chiropractor showed normal R hip & R SI joints. Future Testing and Treatments Planned None Treatment Goals Patient/Caregiver Goals Goal: improve hip mobility to increase tolerance to exercises. Goal: review ex and get on appropriate ex program. Goal: improve mobility of R hip. GoaL: lying on side with greater comfort. 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 Baseline Function- Recreation/Hobbies Body weight exercising 5x/week . Baseline Function- Other Mom of a 5 yr old. Current Functional Impairments (Reported) Functional Limitations- ADL's Pain with sidelying, sitting or standing >30' and walking greater than 1 hour. Functional Limitations- Work/School Limited with sitting for work. 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 Functional Limitations- Recreation/ Makes adjustments as needed Hobbies for exercise routine due to R hip pain. Personal Factors Other Personal Factors That May Effect due date is December 15, Therapy/Recovery 2021. 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 PT-OP-C Subjective Start: 06/20/21 18:32 Freq: Status: Active Protocol: Document 07/29/21 11:20 LRN (Rec: 07/29/21 12:23 LRN [id number]) OP-PT Subjective Patient Comments Patient Comments NO Pain. Had intermittent pain after last session but was able to control the pain with stretches and cryotherapy . Most sore day after therapy in QL area. PT-OP-G Mobility & Gait Start: 06/20/21 18:32 Freq: Status: Active Protocol: Document 06/24/21 11:16 LRN (Rec: 06/24/21 12:14 LRN [id number]) OP Gait Assessment Gait Gait Assistance Required: Independent Able to Maintain Weight Bearing Status Yes During Gait Assistive Devices Assistive Device None Comments Gait Comments R hip excessive sway and lifts up on toes (R) from stance phase to toe off. Stair Climbing Evaluation Evaluation Level of Assist On Stairs Independent Devices Stair Climbing Assistive Devices None Technique/Endurance Stair Climbing Direction Ascend and Descend Stair Climbing Technique Step Over Step PT-OP-H Neuro Start: 06/20/21 18:32 Freq: Status: Active Protocol: Document 06/24/21 11:16 LRN (Rec: 06/24/21 12:14 LRN [id number]) Sensation Evaluation Gross Sensation Gross Sensation WNL PT-OP-J Posture/Palpation/Skin Start: 06/20/21 18:32 Freq: Status: Active Protocol: Document 06/24/21 11:16 LRN (Rec: 06/24/21 12:14 LRN [id number]) Posture Evaluation Position Standing T-Spine Posture Flattened L-Spine Posture Increased Lordosis Pelvis Posture Anteriorly Tilted Weight Distribution Balanced Knee Posture (L) Genu Valgus,(R) Genu Valgus Comments Posture Comments In sitting pt move frequently, leaning and sitting on one hip, then the other. Palpation Assessment Location R Hip Palpation Details Decreased R inferior glide of R sacral base, decreased sacral shear to left, R ischium is posterior L TIFFANY is posterior PT-OP-K Range of Motion Start: 06/20/21 18:32 Freq: Status: Active Protocol: Document 07/29/21 11:20 LRN (Rec: 07/29/21 12:23 LRN [id number]) Hip Goniometric Range of Motion Hip Right Passive Internal Rotation 35 External Rotation 40 Left Passive Internal Rotation 35 External Rotation 55 PT-OP-L Special Tests Start: 06/20/21 18:32 Freq: Status: Active Protocol: Document 06/27/21 13:40 LRN (Rec: 06/27/21 16:54 LRN [id number]) Special Tests Hip Special Tests Posterior Labral Test Test Results Negative RLE Anterior Labral Test Test Results Negative RLE [facility] Resisted Hip Flexion Test Results Negative RLE MEGHANN Test Results Negative RLE PT-OP-M Strength Start: 06/20/21 18:32 Freq: Status: Active Protocol: Document 06/24/21 11:16 LRN (Rec: 06/24/21 12:14 LRN [id number]) Hand Decommissioning Well Site Manager/Pinch Strength Hand Dominance Hand Dominance Right Hip Strength Hip Manual Muscle Testing Right Flexion (L2) 5 Normal Abduction 4 Good Adduction 3+ Fair+ External Rotation 3+ Fair+ Internal Rotation 5 Normal Left Flexion (L2) 5 Normal Abduction 5 Normal Adduction 5 Normal External Rotation 5 Normal Internal Rotation 5 Normal PT-OP-Q Treatments Start: 06/20/21 18:32 Freq: Status: Active Protocol: Document 07/29/21 11:20 LRN (Rec: 07/29/21 12:23 LRN [id number]) Therapeutic Exercises Supine Exercises Fig 4 stretch Supine Exercise Name Fig 4 stretch Side bilateral Reps/Minutes 5 each Comments Not significant difference in mobility; therefore DC Hip ER/IR Supine Exercise Name PROM Side bilateral Comments ROM taken, tightness with R hip ER. Sidelying Exercises Clamshell Sidelying Exercise Name Clamshell Side bilateral Reps/Minutes 10x each Sitting Exercises Knees roll in/out Sitting Exercise Name Knee rolls in/out/PF/Breathing Side bilateral Reps/Minutes 5' Quick and Long hold PF Comments Much v cuing throughout ex needed to coordinate contractions/mvmts Standing Exercises Wall push up Standing Exercise Name Wall push up with min mvmt, preventing upper T/S ext & hip flex Reps/Minutes 4' ex w/PF/breathing/body neutral spine positioning focus. Comments phys & v cuing. Used ruler along spine for neutral spine awareness Scapular protraction Standing Exercise Name Scapular protraction with arms on wall Side bilateral Reps/Minutes 15x Comments Much phy cuing at chest and v cuing to prevent reverse curve of upper T/S Squats Standing Exercise Name Squat/breath out/PF tighen, ARms: pull back>baby lift Reps/Minutes 10x 2 Comments Extra time for proper coordination of ex training Gastroc/Soleus stretch Standing Exercise Name Gastroc/Soleus stretch, bilateral at once Side bilateral Reps/Minutes 60 x 2 Trunk SB stretch Standing Exercise Name Active trunk SB Side bilateral Reps/Minutes 2 H x 10 Self-Care/Home Management Treatment Education Patient Education Home Exercise Program Other Education Reviewed hip stretches pt is doing on self program ( Hamstrings, Hip ER's) and discussed her one area of tightness of R hip ER, but pt to stretch in butterfly stretch. Activities Self-Care/Home Management Activities Issued HEP: Sitting roll in/ outs with TBand & Ball. PT-OP-R Modalities Start: 06/20/21 18:32 Freq: Status: Active Protocol: Document 07/25/21 11:28 LRN (Rec: 07/25/21 12:25 LRN [id number]) Hot Pack/Cold Pack Treatment Cold Pack Location Low Back on Pillow Patient Position Prone Treatment Duration (minutes) 10 Patient Tolerance Good PT-OP-T Assessment and Plan Start: 06/20/21 18:32 Freq: Status: Active Protocol: Document 07/29/21 11:20 LRN (Rec: 07/29/21 12:23 LRN [id number]) Physical Therapy Assessment Goals Two Impairment Asymmetry of Hip/lumbar mobility causing strain and pain in bilateral hips Impairment Hip PROM (in deg's): ER is 65 R, 55L, IR is 25 R, 55 L, PSLR is 80 R, 85 L. Lumbar AROM (in deg's): Extension: 3 deg's, Rot: 20 L, 35 R; SB: 10 L, 13 R Pain with walking greater than 1 hour. Short Term Goal (STG) Pt will be educated in proper transfer (log roll) technique and demonstrate improve hip rotation and lumbar extension/ rotation mobility to increase tolerance to exercises. STG Duration 08/08/21 (07/29/21: Met goal except R hip ER, not significant) Half-Way Goal (LTG) Improve symmetry of hip and lumbar mobility with normalization of gait and pt able to do a exercise without sharp pain and worsening of pain. (07/25/21: No sharp pain, but constant ache). LTG Duration 09/22/21 (07/25/21: Improved) One Impairment Lacks appropriate self care HEP. Short Term Goal (STG) Pt will educated in proper posture in standing, sitting & for sleeping. Pt's current exercise reviewed and modified as needed for appropriate exercise. STG Duration 08/08/21 (07/25/21: MET GOAL) Half-Way Goal (LTG) Pt will be independent in a self care HEP appropriate for her ending condition to include hip/trunk mobility and trunk/pelvic stabilization. (06/27/21: Verbal I/S for 4pt TA tightening & Clamshell) (07/18/21: Added trunk mobility HEP) (07/29/21: Added Sitting roll in/out w/PF/breathing). LTG Duration 09/22/21 (07/29/20: Progressed) Progress Towards Goals Progress Comments STG #2 MET, although R hip ER is decreased, not significant to start stretch other than pt 's Butterfly stretch. Progressed HEP. Assessment Summary Assessment Pt able to do clamshell without pain bilaterally. Pt has difficulty with scapular protaction with wall push up. Pt had no pain with ex. Physical Therapy Plan Frequency and Duration Frequency of Treatment 2x/Week Plan of Care Start Date 06/24/21 Plan of Care End Date 09/22/21 Next Visit Focus/Plan Next Note Type Treatment Note Next Visit Plan Educate pt in DR protection, Add strengthening PF/R hip (AD /ER). Progress HEP of pelvic/core stabilization (progress rot with TB if pt tols). Note to pt to focus trunk stretch for L rot & L lateral flex), End CP if needed.
--- NOTE | 2021-08-01 12:26 | PT.OTN ---
Current Diagnoses Strain of muscle, fascia and tendon of right hip, initial encounter (08/01/21) Physical Therapy Treatment Note PT-OP-A Visit Information Start: 06/20/21 18:32 Freq: Status: Active Protocol: Document 08/01/21 11:22 LRN (Rec: 08/01/21 12:26 LRN [id number]) Out-Patient Physical Therapy Visit Information Visit Information Visit Type Treatment Note Visit Start Time 11:22 Visit Stop Time 12:12 Total Visit Minutes 50 Visit Number 8 Evaluation Information Evaluation Date 06/24/21 Precautions Precautions Bilateral varicose vein removal 2010. 3, Parity 1. Pt is currently 14 weeks . PT-OP-B Current Condition Start: 06/20/21 18:32 Freq: Status: Active Protocol: Document 06/24/21 11:16 LRN (Rec: 06/24/21 12:14 LRN [id number]) Current Condition History of Current Condition Onset Date 3 yrs ago Current Complaints R hip pain, onset of L hip pain 2 days ago. History of Current Condition R hip pain started 3 yrs ago when son was 1.5 yrs old, carrying him on the L hip. R hip pain of insidious onset. has caused a flair up of pain. She is uncomfortable lying on either side, standing for > 30', walking after 30', sitting > 1 hour (unbearable after 2 hrs. If stands > 30', the R hip/LB pain extends into the groin. If doesn't move, the R hip becomes painful, and muscles feel tight. Denies pubic symphysis pain. Pt must shift often in sitting due to the pain. L hip pain just started 2 days ago. Pain in the center of the L buttock, described as constant sharp pain for a couple minutes ( different from R side) 1-2 times a day. Prior Treatments and Tests Chiropractor visits for 6 months, stopped in March due to and lack of pain relief. Pt reports X-rays by Chiropractor showed normal R hip & R SI joints. Future Testing and Treatments Planned None Treatment Goals Patient/Caregiver Goals Goal: improve hip mobility to increase tolerance to exercises. Goal: review ex and get on appropriate ex program. Goal: improve mobility of R hip. GoaL: lying on side with greater comfort. 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 Baseline Function- Recreation/Hobbies Body weight exercising 5x/week . Baseline Function- Other Mom of a 5 yr old. Current Functional Impairments (Reported) Functional Limitations- ADL's Pain with sidelying, sitting or standing >30' and walking greater than 1 hour. Functional Limitations- Work/School Limited with sitting for work. 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 Functional Limitations- Recreation/ Makes adjustments as needed Hobbies for exercise routine due to R hip pain. Personal Factors Other Personal Factors That May Effect due date is December 15, Therapy/Recovery 2021. 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 PT-OP-C Subjective Start: 06/20/21 18:32 Freq: Status: Active Protocol: Document 08/01/21 11:22 LRN (Rec: 08/01/21 12:26 LRN [id number]) OP-PT Subjective Patient Comments Patient Comments No pain. Tripped but no fall 3 days ago. PT-OP-G Mobility & Gait Start: 06/20/21 18:32 Freq: Status: Active Protocol: Document 06/24/21 11:16 LRN (Rec: 06/24/21 12:14 LRN [id number]) OP Gait Assessment Gait Gait Assistance Required: Independent Able to Maintain Weight Bearing Status Yes During Gait Assistive Devices Assistive Device None Comments Gait Comments R hip excessive sway and lifts up on toes (R) from stance phase to toe off. Stair Climbing Evaluation Evaluation Level of Assist On Stairs Independent Devices Stair Climbing Assistive Devices None Technique/Endurance Stair Climbing Direction Ascend and Descend Stair Climbing Technique Step Over Step PT-OP-H Neuro Start: 06/20/21 18:32 Freq: Status: Active Protocol: Document 06/24/21 11:16 LRN (Rec: 06/24/21 12:14 LRN [id number]) Sensation Evaluation Gross Sensation Gross Sensation WNL PT-OP-J Posture/Palpation/Skin Start: 06/20/21 18:32 Freq: Status: Active Protocol: Document 06/24/21 11:16 LRN (Rec: 12/14/21 12:14 LRN [id number]) Posture Evaluation Position Standing T-Spine Posture Flattened L-Spine Posture Increased Lordosis Pelvis Posture Anteriorly Tilted Weight Distribution Balanced Knee Posture (L) Genu Valgus,(R) Genu Valgus Comments Posture Comments In sitting pt move frequently, leaning and sitting on one hip, then the other. Palpation Assessment Location R Hip Palpation Details Decreased R inferior glide of R sacral base, decreased sacral shear to left, R ischium is posterior L TIFFANY is posterior PT-OP-K Range of Motion Start: 06/20/21 18:32 Freq: Status: Active Protocol: Document 07/29/21 11:20 LRN (Rec: 07/29/21 12:23 LRN [id number]) Hip Goniometric Range of Motion Hip Right Passive Internal Rotation 35 External Rotation 40 Left Passive Internal Rotation 35 External Rotation 55 PT-OP-L Special Tests Start: 06/20/21 18:32 Freq: Status: Active Protocol: Document 06/27/21 13:40 LRN (Rec: 06/27/21 16:54 LRN [id number]) Special Tests Hip Special Tests Posterior Labral Test Test Results Negative RLE Anterior Labral Test Test Results Negative RLE [facility] Resisted Hip Flexion Test Results Negative RLE MEGHANN Test Results Negative RLE PT-OP-M Strength Start: 06/20/21 18:32 Freq: Status: Active Protocol: Document 06/24/21 11:16 LRN (Rec: 06/24/21 12:14 LRN [id number]) Hand Pharmacy Technology Instructor/Pinch Strength Hand Dominance Hand Dominance Right Hip Strength Hip Manual Muscle Testing Right Flexion (L2) 5 Normal Abduction 4 Good Adduction 3+ Fair+ External Rotation 3+ Fair+ Internal Rotation 5 Normal Left Flexion (L2) 5 Normal Abduction 5 Normal Adduction 5 Normal External Rotation 5 Normal Internal Rotation 5 Normal PT-OP-Q Treatments Start: 06/20/21 18:32 Freq: Status: Active Protocol: Document 08/01/21 11:22 LRN (Rec: 08/01/21 12:26 LRN [id number]) Therapeutic Exercises Sidelying Exercises Clamshell Sidelying Exercise Name Clamshell Side bilateral Reps/Minutes Double on R (10x 2 R, 10x L) Sitting Exercises Ankle strengthening Sitting Exercise Name IV/EV Side bilateral Equipment Used Lev 1 Reps/Minutes 10x devin Comments L ankle swollen from sprain, but no c/o pain with ex Longsit hip AB/AD Sitting Exercise Name Long sit devin hip AB/AD Side bilateral Reps/Minutes 10x Comments Pt in Reclined back on hands position. Trunk Rot Sitting Exercise Name Active trunk rot Side bilateral Reps/Minutes 10x each Standing Exercises 1/2 squat with foam roll lift Standing Exercise Name w/foam roll, 1/2 squat, rtn, devin LE squat, lunge, rtn, devin LE squat. Reps/Minutes 5x each Comments phys & v cuing for neutral spine, breathing, if able PF. Ankle strengthening Standing Exercise Name Toe/Heel lifts Side bilateral Reps/Minutes 10x each 1/2 Squat Standing Exercise Name Squat/breath out/PF tighen, Arms: pull back>baby lift Reps/Minutes 8x each Comments phys & v cuing for neutral spine, breathing, if able PF. Wall push up Standing Exercise Name Wall push up with min mvmt, preventing upper T/S ext & hip flex Reps/Minutes 4' ex w/PF/breathing/body neutral spine positioning focus. Comments phys & v cuing. Used ruler along spine for neutral spine awareness Scapular protraction Standing Exercise Name Scapular protraction with arms on wall Side bilateral Reps/Minutes 15x Comments Phy cuing at chest and v cuing to prevent reverse curve of upper T/S Gastroc/Soleus stretch Standing Exercise Name Gastroc/Soleus stretch, bilateral at once Side bilateral Reps/Minutes 60 x 2 Trunk SB stretch Standing Exercise Name Active trunk SB Side bilateral Reps/Minutes 2 H x 10 Comments Pt self mobilized to normalize posture Self-Care/Home Management Treatment Education Other Education Pt education in DR and for post TA strengthening and proper body mechanics. Activities Self-Care/Home Management Activities Issued and reviewed HEP: Ankle strengthening: PF/DF/IV /EV with Lev 1 TB issued. PT-OP-R Modalities Start: 06/20/21 18:32 Freq: Status: Active Protocol: Document 08/01/21 11:22 LRN (Rec: 08/01/21 12:26 LRN [id number]) Hot Pack/Cold Pack Treatment Cold Pack Location Low Back on Pillow Patient Position Prone Treatment Duration (minutes) 10 Patient Tolerance Good PT-OP-T Assessment and Plan Start: 06/20/21 18:32 Freq: Status: Active Protocol: Document 08/01/21 11:22 LRN (Rec: 08/01/21 12:26 LRN [id number]) Physical Therapy Assessment Goals Three Impairment Decreased pelvic/lumbar strength and stability. Impairment R Hip strength: AD 3+/5, AB 4 /5, ER 3+/5. L Hip strength is normal. Pain with sidelying, sitting or standing >30' Short Term Goal (STG) Improve trunk stability with pt able to increase standing tolerance. (07/18/21: Pt reports no pain with standing) STG Duration 08/08/21 (07/18/21: MET GOAL, No pain). Mcc Goal (LTG) Improve pelvic stability with pt able to sit and sidelye with greater comfort (improved tolerance). LTG Duration 09/22/21 (07/18/21: MET GOAL) Two Impairment Asymmetry of Hip/lumbar mobility causing strain and pain in bilateral hips Impairment Hip PROM (in deg's): ER is 65 R, 55L, IR is 25 R, 55 L, PSLR is 80 R, 85 L. Lumbar AROM (in deg's): Extension: 3 deg's, Rot: 20 L, 35 R; SB: 10 L, 13 R Pain with walking greater than 1 hour. Short Term Goal (STG) Pt will be educated in proper transfer (log roll) technique and demonstrate improve hip rotation and lumbar extension/ rotation mobility to increase tolerance to exercises. STG Duration 08/08/21 (07/29/21: Met goal except R hip ER, not significant) Needle Grader Goal (LTG) Improve symmetry of hip and lumbar mobility with normalization of gait and pt able to do a exercise without sharp pain and worsening of pain. (07/25/21: No sharp pain, but constant ache). LTG Duration 09/22/21 (07/25/21: Improved) One Impairment Lacks appropriate self care HEP. Short Term Goal (STG) Pt will educated in proper posture in standing, sitting & for sleeping. Pt's current exercise reviewed and modified as needed for appropriate exercise. STG Duration 08/08/21 (07/25/21: MET GOAL) Mcc Goal (LTG) Pt will be independent in a self care HEP appropriate for her ending condition to include hip/trunk mobility and trunk/pelvic stabilization. (06/27/21: Verbal I/S for 4pt TA tightening & Clamshell) (07/18/21: Added trunk mobility HEP) (07/29/21: Added Sitting roll in/out w/PF/breathing). (08/01/20: Added ankle and verbal I/S for active longsit hip AB/AD strengthening). LTG Duration 09/22/21 (08/01/20: Progressed) Progress Towards Goals Progress Comments Progressed core stab and HEP Assessment Summary Assessment Pt has post abdominal belt for support of DR is needed. Pt appears to have a good understanding of need of support in case of DR. Pt had no complaints of discomfort after added hip/ankle/standing core ex's. Trunk stretches appear to be normalize posture with bilateral stretches. Physical Therapy Plan Frequency and Duration Frequency of Treatment 2x/Week Plan of Care Start Date 06/24/21 Plan of Care End Date 09/22/21 Next Visit Focus/Plan Next Note Type Treatment Note Next Visit Plan Assess gait for normalization (LTG #2). Review strengthening: longsit PF/R hip (AD/ER), ankle, and standing core lunge strengthening exercises. Progress HEP of pelvic/core stabilization (progress rot with TB if pt tols). Normalize lumbar mobility ( initial: Rot: 20 L, 35 R; SB: 10 L, 13 R ) and monitor hip mobility (ER is 65 R, 55L, IR is 25 R, 55 L). End CP if needed.
--- NOTE | 2021-08-05 12:16 | PT.OTN ---
Current Diagnoses Strain of muscle, fascia and tendon of right hip, initial encounter (08/05/21) Physical Therapy Treatment Note PT-OP-A Visit Information Start: 06/20/21 18:32 Freq: Status: Active Protocol: Document 08/05/21 11:14 LRN (Rec: 08/05/21 12:15 LRN [id number]) Out-Patient Physical Therapy Visit Information Visit Information Visit Type Treatment Note Visit Start Time 11:14 Visit Stop Time 12:10 Total Visit Minutes 56 Visit Number 9 Evaluation Information Evaluation Date 06/24/21 Precautions Precautions Bilateral varicose vein removal 2010. 3, Parity 1. Pt is currently 14 weeks . PT-OP-B Current Condition Start: 06/20/21 18:32 Freq: Status: Active Protocol: Document 06/24/21 11:16 LRN (Rec: 06/24/21 12:14 LRN [id number]) Current Condition History of Current Condition Onset Date 3 yrs ago Current Complaints R hip pain, onset of L hip pain 2 days ago. History of Current Condition R hip pain started 3 yrs ago when son was 1.5 yrs old, carrying him on the L hip. R hip pain of insidious onset. has caused a flair up of pain. She is uncomfortable lying on either side, standing for > 30', walking after 30', sitting > 1 hour (unbearable after 2 hrs. If stands > 30', the R hip/LB pain extends into the groin. If doesn't move, the R hip becomes painful, and muscles feel tight. Denies pubic symphysis pain. Pt must shift often in sitting due to the pain. L hip pain just started 2 days ago. Pain in the center of the L buttock, described as constant sharp pain for a couple minutes ( different from R side) 1-2 times a day. Prior Treatments and Tests Chiropractor visits for 6 months, stopped in March due to and lack of pain relief. Pt reports X-rays by Chiropractor showed normal R hip & R SI joints. Future Testing and Treatments Planned None Treatment Goals Patient/Caregiver Goals Goal: improve hip mobility to increase tolerance to exercises. Goal: review ex and get on appropriate ex program. Goal: improve mobility of R hip. GoaL: lying on side with greater comfort. 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 Baseline Function- Recreation/Hobbies Body weight exercising 5x/week . Baseline Function- Other Mom of a 5 yr old. Current Functional Impairments (Reported) Functional Limitations- ADL's Pain with sidelying, sitting or standing >30' and walking greater than 1 hour. Functional Limitations- Work/School Limited with sitting for work. 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 Functional Limitations- Recreation/ Makes adjustments as needed Hobbies for exercise routine due to R hip pain. Personal Factors Other Personal Factors That May Effect due date is December 15, Therapy/Recovery 2021. 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 PT-OP-C Subjective Start: 06/20/21 18:32 Freq: Status: Active Protocol: Document 08/05/21 11:14 LRN (Rec: 08/05/21 12:15 LRN [id number]) OP-PT Subjective Patient Comments Patient Comments States she has been having more hip pain in the joint, but not back pain. PT-OP-G Mobility & Gait Start: 06/20/21 18:32 Freq: Status: Active Protocol: Document 06/24/21 11:16 LRN (Rec: 06/24/21 12:14 LRN [id number]) OP Gait Assessment Gait Gait Assistance Required: Independent Able to Maintain Weight Bearing Status Yes During Gait Assistive Devices Assistive Device None Comments Gait Comments R hip excessive sway and lifts up on toes (R) from stance phase to toe off. Stair Climbing Evaluation Evaluation Level of Assist On Stairs Independent Devices Stair Climbing Assistive Devices None Technique/Endurance Stair Climbing Direction Ascend and Descend Stair Climbing Technique Step Over Step PT-OP-H Neuro Start: 06/20/21 18:32 Freq: Status: Active Protocol: Document 06/24/21 11:16 LRN (Rec: 06/24/21 12:14 LRN [id number]) Sensation Evaluation Gross Sensation Gross Sensation WNL PT-OP-J Posture/Palpation/Skin Start: 06/20/21 18:32 Freq: Status: Active Protocol: Document 06/24/21 11:16 LRN (Rec: 06/24/21 12:14 LRN [id number]) Posture Evaluation Position Standing T-Spine Posture Flattened L-Spine Posture Increased Lordosis Pelvis Posture Anteriorly Tilted Weight Distribution Balanced Knee Posture (L) Genu Valgus,(R) Genu Valgus Comments Posture Comments In sitting pt move frequently, leaning and sitting on one hip, then the other. Palpation Assessment Location R Hip Palpation Details Decreased R inferior glide of R sacral base, decreased sacral shear to left, R ischium is posterior L TIFFANY is posterior PT-OP-K Range of Motion Start: 06/20/21 18:32 Freq: Status: Active Protocol: Document 07/29/21 11:20 LRN (Rec: 07/29/21 12:23 LRN [id number]) Hip Goniometric Range of Motion Hip Right Passive Internal Rotation 35 External Rotation 40 Left Passive Internal Rotation 35 External Rotation 55 PT-OP-L Special Tests Start: 06/20/21 18:32 Freq: Status: Active Protocol: Document 06/27/21 13:40 LRN (Rec: 06/27/21 16:54 LRN [id number]) Special Tests Hip Special Tests Posterior Labral Test Test Results Negative RLE Anterior Labral Test Test Results Negative RLE [facility] Resisted Hip Flexion Test Results Negative RLE MEGHANN Test Results Negative RLE PT-OP-M Strength Start: 06/20/21 18:32 Freq: Status: Active Protocol: Document 06/24/21 11:16 LRN (Rec: 06/24/21 12:14 LRN [id number]) Hand Casting Plug Assembler/Pinch Strength Hand Dominance Hand Dominance Right Hip Strength Hip Manual Muscle Testing Right Flexion (L2) 5 Normal Abduction 4 Good Adduction 3+ Fair+ External Rotation 3+ Fair+ Internal Rotation 5 Normal Left Flexion (L2) 5 Normal Abduction 5 Normal Adduction 5 Normal External Rotation 5 Normal Internal Rotation 5 Normal PT-OP-Q Treatments Start: 06/20/21 18:32 Freq: Status: Active Protocol: Document 08/05/21 11:14 LRN (Rec: 08/05/21 12:15 LRN [id number]) Therapeutic Exercises Supine Exercises Bridging Supine Exercise Name Bridge after sidelie R SIJ correction Reps/Minutes 10x Prone Exercises TA tightening on preg pillow Prone Exercise Name TA tightening Reps/Minutes 10 hold x 10 Standing Exercises 1/2 squat with foam roll lift Standing Exercise Name Discontinued due to R hip pn with new ex Other Exercises Cat/Cow Other Exercise Name Cat/Cow after manual therapy Reps/Minutes 10x Child's Pose Other Exercise Name Child's pose stretch Reps/Minutes 2' Manual Therapy Treatment Joint Mobilizations R SIJ Joint R SIJ Direction Correcting an anteriorly rotated innominate Grade I Body Position Sidelying Reps/Duration 5' Pelvic rebalancing Joint Sacrum/Innominates Direction 8 point pelvic rebalancing Body Position Prone Reps/Duration 18' Comments Prone on pillow. MFR treatment Decr'd mobility with PA of R TIFFANY & R Ischium. Sacrum Joint R TIFFANY of sacrum Direction Shear to left Body Position Prone Comments Prone on pillow. MFR treatment Sacral rotation correction Joint Correcting a R sacral rotation (PA R lat sacrum) Body Position Prone Comments Prone on pillow. MFR treatment Ischial Mobility Joint R Ischial Tuberosity Direction PA Body Position Prone Comments Prone on pillow. MFR treatment Sacral TIFFANY Joint PA of R Sacral TIFFANY Direction PA Body Position Prone Comments Prone on pillow. MFR treatment Self-Care/Home Management Treatment Education Other Education Discussed pt's condition of R anteriorly rotated innominate and educated pt in self assessment of pelvic positioning with correction technique described. Activities Self-Care/Home Management Activities I/S pt in standing plie with handout issued. PT-OP-R Modalities Start: 06/20/21 18:32 Freq: Status: Active Protocol: Document 08/05/21 11:14 LRN (Rec: 08/05/21 12:15 LRN [id number]) Hot Pack/Cold Pack Treatment Cold Pack Location Low Back on Pillow Patient Position Prone Treatment Duration (minutes) 10 Patient Tolerance Good PT-OP-T Assessment and Plan Start: 06/20/21 18:32 Freq: Status: Active Protocol: Document 08/05/21 11:14 LRN (Rec: 08/05/21 12:15 N [id number]) Physical Therapy Assessment Goals Three Impairment Decreased pelvic/lumbar strength and stability. Impairment R Hip strength: AD 3+/5, AB 4 /5, ER 3+/5. L Hip strength is normal. Pain with sidelying, sitting or standing >30' Short Term Goal (STG) Improve trunk stability with pt able to increase standing tolerance. (07/18/21: Pt reports no pain with standing) STG Duration 08/08/21 (07/18/21: MET GOAL, No pain). Protection Engineer Goal (LTG) Improve pelvic stability with pt able to sit and sidelye with greater comfort (improved tolerance). LTG Duration 09/22/21 (07/18/21: MET GOAL) Two Impairment Asymmetry of Hip/lumbar mobility causing strain and pain in bilateral hips Impairment Hip PROM (in deg's): ER is 65 R, 55L, IR is 25 R, 55 L, PSLR is 80 R, 85 L. Lumbar AROM (in deg's): Extension: 3 deg's, Rot: 20 L, 35 R; SB: 10 L, 13 R Pain with walking greater than 1 hour. Short Term Goal (STG) Pt will be educated in proper transfer (log roll) technique and demonstrate improve hip rotation and lumbar extension/ rotation mobility to increase tolerance to exercises. STG Duration 08/08/21 (07/29/21: Met goal except R hip ER, not significant) Protection Engineer Goal (LTG) Improve symmetry of hip and lumbar mobility with normalization of gait and pt able to do a exercise without sharp pain and worsening of pain. (07/25/21: No sharp pain, but constant ache). LTG Duration 09/22/21 (07/25/21: Improved) One Impairment Lacks appropriate self care HEP. Short Term Goal (STG) Pt will educated in proper posture in standing, sitting & for sleeping. Pt's current exercise reviewed and modified as needed for appropriate exercise. STG Duration 08/08/21 (07/25/21: MET GOAL) Intermediate Goal (LTG) Pt will be independent in a self care HEP appropriate for her ending condition to include hip/trunk mobility and trunk/pelvic stabilization. (06/27/21: Verbal I/S for 4pt TA tightening & Clamshell) (07/18/21: Added trunk mobility HEP) (07/29/21: Added Sitting roll in/out w/PF/breathing). (08/01/20: Added ankle and verbal I/S for active longsit hip AB/AD strengthening). LTG Duration 09/22/21 (08/01/20: Progressed) Progress Towards Goals Progress Comments R hip pain relieved. Assessment Summary Assessment Pt attends flared up with R hip pain. Pt R hip pain is in the hip AD tendon at the Pubic bone, probably due to increase in ex of split leg positioning ex's. + response to manual therapy with resolution of pain after therapy. Physical Therapy Plan Frequency and Duration Frequency of Treatment 2x/Week Plan of Care Start Date 06/24/21 Plan of Care End Date 09/22/21 Next Visit Focus/Plan Next Note Type Treatment Note Next Visit Plan Start with standing plie/PF. Assess gait for normalization (LTG #2). Review strengthening: longsit PF/R hip (AD/ER), ankle strengthening exercises. Progress HEP of pelvic/core stabilization in neutral ( progress rot with TB if pt tols). Normalize lumbar mobility ( initial: Rot: 20 L, 35 R; SB: 10 L, 13 R ) and monitor hip mobility (ER is 65 R, 55L, IR is 25 R, 55 L). End CP if needed.
--- NOTE | 2021-08-19 17:06 | PT.OTN ---
Current Diagnoses Strain of muscle, fascia and tendon of right hip, initial encounter (08/19/21) Physical Therapy Treatment Note PT-OP-A Visit Information Start: 06/20/21 18:32 Freq: Status: Active Protocol: Document 08/19/21 11:24 LRN (Rec: 08/19/21 12:08 LRN [id number]) Out-Patient Physical Therapy Visit Information Visit Information Visit Type Progress Note Visit Start Time 11:24 Visit Stop Time 11:55 Total Visit Minutes 31 Visit Number 10 Evaluation Information Evaluation Date 06/24/21 Precautions Precautions Bilateral varicose vein removal 2010. 3, Parity 1. Pt is currently 14 weeks . PT-OP-B Current Condition Start: 06/20/21 18:32 Freq: Status: Active Protocol: Document 06/24/21 11:16 LRN (Rec: 06/24/21 12:14 LRN [id number]) Current Condition History of Current Condition Onset Date 3 yrs ago Current Complaints R hip pain, onset of L hip pain 2 days ago. History of Current Condition R hip pain started 3 yrs ago when son was 1.5 yrs old, carrying him on the L hip. R hip pain of insidious onset. has caused a flair up of pain. She is uncomfortable lying on either side, standing for > 30', walking after 30', sitting > 1 hour (unbearable after 2 hrs. If stands > 30', the R hip/LB pain extends into the groin. If doesn't move, the R hip becomes painful, and muscles feel tight. Denies pubic symphysis pain. Pt must shift often in sitting due to the pain. L hip pain just started 2 days ago. Pain in the center of the L buttock, described as constant sharp pain for a couple minutes ( different from R side) 1-2 times a day. Prior Treatments and Tests Chiropractor visits for 6 months, stopped in March due to and lack of pain relief. Pt reports X-rays by Chiropractor showed normal R hip & R SI joints. Future Testing and Treatments Planned None Treatment Goals Patient/Caregiver Goals Goal: improve hip mobility to increase tolerance to exercises. Goal: review ex and get on appropriate ex program. Goal: improve mobility of R hip. GoaL: lying on side with greater comfort. 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 Baseline Function- Recreation/Hobbies Body weight exercising 5x/week . Baseline Function- Other Mom of a 5 yr old. Current Functional Impairments (Reported) Functional Limitations- ADL's Pain with sidelying, sitting or standing >30' and walking greater than 1 hour. Functional Limitations- Work/School Limited with sitting for work. 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 Functional Limitations- Recreation/ Makes adjustments as needed Hobbies for exercise routine due to R hip pain. Personal Factors Other Personal Factors That May Effect due date is December 15, Therapy/Recovery 2021. 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 PT-OP-C Subjective Start: 06/20/21 18:32 Freq: Status: Active Protocol: Document 08/19/21 11:24 LRN (Rec: 08/19/21 12:08 LRN [id number]) OP-PT Subjective Patient Comments Patient Comments Pt requested early leave due to another medical appointment at noon. No issues with the back. 99% better. Not getting pain or sharp pain with exercises. PT-OP-G Mobility & Gait Start: 06/20/21 18:32 Freq: Status: Active Protocol: Document 06/24/21 11:16 LRN (Rec: 06/24/21 12:14 LRN [id number]) OP Gait Assessment Gait Gait Assistance Required: Independent Able to Maintain Weight Bearing Status Yes During Gait Assistive Devices Assistive Device None Comments Gait Comments R hip excessive sway and lifts up on toes (R) from stance phase to toe off. Stair Climbing Evaluation Evaluation Level of Assist On Stairs Independent Devices Stair Climbing Assistive Devices None Technique/Endurance Stair Climbing Direction Ascend and Descend Stair Climbing Technique Step Over Step PT-OP-H Neuro Start: 06/20/21 18:32 Freq: Status: Active Protocol: Document 06/24/21 11:16 LRN (Rec: 06/24/21 12:14 LRN [id number]) Sensation Evaluation Gross Sensation Gross Sensation WNL PT-OP-J Posture/Palpation/Skin Start: 06/20/21 18:32 Freq: Status: Active Protocol: Document 06/24/21 11:16 LRN (Rec: 06/24/21 12:14 LRN [id number]) Posture Evaluation Position Standing T-Spine Posture Flattened L-Spine Posture Increased Lordosis Pelvis Posture Anteriorly Tilted Weight Distribution Balanced Knee Posture (L) Genu Valgus,(R) Genu Valgus Comments Posture Comments In sitting pt move frequently, leaning and sitting on one hip, then the other. Palpation Assessment Location R Hip Palpation Details Decreased R inferior glide of R sacral base, decreased sacral shear to left, R ischium is posterior L TIFFANY is posterior PT-OP-K Range of Motion Start: 06/20/21 18:32 Freq: Status: Active Protocol: Document 08/19/21 11:24 LRN (Rec: 08/19/21 12:08 LRN [id number]) Lumbar Spine Range of Motion Lumbar Spine Active Degrees Testing Position Standing Flexion 23 Extension 5 Rotation Left 40 Rotation Right 45 Lateral Flexion Left 8 Lateral Flexion Right 3 Hip Goniometric Range of Motion Hip Right Passive Testing Position Supine Internal Rotation 35 External Rotation 60 Left Passive Internal Rotation 35 External Rotation 65 PT-OP-L Special Tests Start: 06/20/21 18:32 Freq: Status: Active Protocol: Document 06/27/21 13:40 LRN (Rec: 06/27/21 16:54 LRN [id number]) Special Tests Hip Special Tests Posterior Labral Test Test Results Negative RLE Anterior Labral Test Test Results Negative RLE [facility] Resisted Hip Flexion Test Results Negative RLE MEGHANN Test Results Negative RLE PT-OP-M Strength Start: 06/20/21 18:32 Freq: Status: Active Protocol: Document 06/24/21 11:16 LRN (Rec: 06/24/21 12:14 LRN [id number]) Hand Gis Professor/Pinch Strength Hand Dominance Hand Dominance Right Hip Strength Hip Manual Muscle Testing Right Flexion (L2) 5 Normal Abduction 4 Good Adduction 3+ Fair+ External Rotation 3+ Fair+ Internal Rotation 5 Normal Left Flexion (L2) 5 Normal Abduction 5 Normal Adduction 5 Normal External Rotation 5 Normal Internal Rotation 5 Normal PT-OP-Q Treatments Start: 06/20/21 18:32 Freq: Status: Active Protocol: Document 08/19/21 11:24 LRN (Rec: 08/19/21 12:08 [facility] [id number]) Therapeutic Exercises Supine Exercises Fig 4 stretch Supine Exercise Name Fig 4 stretch Side bilateral Reps/Minutes 4' Hip ER/IR Supine Exercise Name Hip ER/IR stretch Side bilateral Reps/Minutes 2x each Comments PROM taken Sidelying Exercises Clamshell Sidelying Exercise Name Clamshell Side bilateral Reps/Minutes 10x 2 each Comments Extra time taken for pt to move Sitting Exercises Hip ER stretch Sitting Exercise Name Hip ER stretch Side bilateral Reps/Minutes 3' Trunk Rot Sitting Exercise Name Trunk Rot Side bilateral Reps/Minutes 5' Standing Exercises Trunk flex/ext Standing Exercise Name Trunk flex/ext stretch Reps/Minutes 2x Comments AROM taken Trunk rot stretch Standing Exercise Name Trunk active rotation Side bilateral Comments ROM taken Trunk SB stretch Standing Exercise Name Trunk SB stretch Side bilateral Reps/Minutes 3' Comments AROM taken Other Exercises Cat/Cow Other Exercise Name Cat/Cow after manual therapy Reps/Minutes 10x PT-OP-R Modalities Start: 06/20/21 18:32 Freq: Status: Active Protocol: Document 08/05/21 11:14 LRN (Rec: 08/05/21 12:15 [facility] [id number]) Hot Pack/Cold Pack Treatment Cold Pack Location Low Back on Pillow Patient Position Prone Treatment Duration (minutes) 10 Patient Tolerance Good PT-OP-T Assessment and Plan Start: 06/20/21 18:32 Freq: Status: Active Protocol: Document 08/19/21 11:24 LRN (Rec: 08/19/21 12:08 [facility] [id number]) Physical Therapy Assessment Rehab Potential Rehabilitation Potential Excellent Evaluation Complexity Number of Personal Factors/Comorbidities 3 or More Impairments Impairments Gait,Strength Other Impairments Lacks progressive core stab program. Goals Three Impairment Decreased pelvic/lumbar strength and stability. Impairment R Hip strength: AD 3+/5, AB 4 /5, ER 3+/5. L Hip strength is normal. Pain with sidelying, sitting or standing >30' Short Term Goal (STG) Improve trunk stability with pt able to increase standing tolerance. (07/18/21: Pt reports no pain with standing) STG Duration 08/08/21 (07/18/21: MET GOAL, No pain). Fdc Goal (LTG) Improve pelvic stability with pt able to sit and sidelye with greater comfort (improved tolerance). LTG Duration 09/22/21 (07/18/21: MET GOAL) Two Impairment Asymmetry of Hip/lumbar mobility causing strain and pain in bilateral hips Impairment Hip PROM (in deg's): ER is 65 R, 55L, IR is 25 R, 55 L, PSLR is 80 R, 85 L Lumbar AROM (in deg's): Extension: 3 deg's, Rot: 20 L, 35 R; SB: 10 L, 13 R Pain with walking greater than 1 hour. Short Term Goal (STG) Pt will be educated in proper transfer (log roll) technique and demonstrate improve hip rotation and lumbar extension/ rotation mobility to increase tolerance to exercises. (Hip PROM: in deg's is ER: 60 R, 65L, IR is 25 bilaterally) (Lumbar AROM in deg's: Extension is 5 deg's rot is 40 L, 45 R; SB is 8 L, 3 R) STG Duration 08/08/21 (08/19/21: GOAL MET) Fdc Goal (LTG) Improve symmetry of hip and lumbar mobility with normalization of gait and pt able to do a exercise without sharp pain and worsening of pain. (07/25/21: No sharp pain, but constant ache). LTG Duration 09/22/21 (07/25/21: Improved) One Impairment Lacks appropriate self care HEP. Short Term Goal (STG) Pt will educated in proper posture in standing, sitting & for sleeping. Pt's current exercise reviewed and modified as needed for appropriate exercise. STG Duration 08/08/21 (07/25/21: MET GOAL) Fdc Goal (LTG) Pt will be independent in a self care HEP appropriate for her ending condition to include hip/trunk mobility and trunk/pelvic stabilization. (06/27/21: Verbal I/S for 4pt TA tightening & Clamshell) (07/18/21: Added trunk mobility HEP) (07/29/21: Added Sitting roll in/out w/PF/breathing). (08/01/20: Added ankle and verbal I/S for active longsit hip AB/AD strengthening). LTG Duration 09/22/21 (08/01/20: Progressed) Progress Towards Goals Progress Comments STG #2 MET. Assessment Summary Assessment Pt is 23 weeks and has been doing quite well for the past 2 weeks with no complaints of R pain. She has returned to her previous yoga ex program and is feeling much improved. She needs to be placed on a progressive core stab program that she can continue independently as she progresses with her , that can be done probably in 1 visits. Physical Therapy Plan Frequency and Duration Frequency of Treatment 2x/Week Plan of Care Start Date 06/24/21 Plan of Care End Date 09/22/21 Therapeutic Interventions Therapeutic Interventions Gait Training,Home Exercise Program,Joint Mobilizations, Manual Therapy,Neuromuscular Re-education,Patient/Caregiver Education,Self-Care/Home Management,Therapeutic Activities,Therapeutic Exercises Modalities Cold Pack/Ice Massage Next Visit Focus/Plan Next Note Type Treatment Note Next Visit Plan Next Rx: DC to HEP. Start with standing plie/PF. Assess gait for normalization (LTG #2). Review strengthening: longsit PF/R hip (AD/ER), ankle strengthening exercises. [place] HEP of pelvic/core stabilization in neutral ( progress rot with TB if pt tols). End CP if needed.
--- NOTE | 2021-08-22 12:27 | PT.OTN ---
Current Diagnoses Strain of muscle, fascia and tendon of right hip, initial encounter (08/22/21) Physical Therapy Treatment Note PT-OP-A Visit Information Start: 06/20/21 18:32 Freq: Status: Active Protocol: Document 08/22/21 11:18 LRN (Rec: 08/22/21 12:26 LRN [id number]) Out-Patient Physical Therapy Visit Information Visit Information Visit Type Treatment Note Visit Start Time 11:18 Visit Stop Time 12:00 Total Visit Minutes 42 Visit Number 11 Evaluation Information Evaluation Date 06/24/21 Precautions Precautions Bilateral varicose vein removal 2010. 3, Parity 1. Pt is currently 14 weeks . PT-OP-B Current Condition Start: 06/20/21 18:32 Freq: Status: Active Protocol: Document 06/24/21 11:16 LRN (Rec: 06/24/21 12:14 LRN [id number]) Current Condition History of Current Condition Onset Date 3 yrs ago Current Complaints R hip pain, onset of L hip pain 2 days ago. History of Current Condition R hip pain started 3 yrs ago when son was 1.5 yrs old, carrying him on the L hip. R hip pain of insidious onset. has caused a flair up of pain. She is uncomfortable lying on either side, standing for > 30', walking after 30', sitting > 1 hour (unbearable after 2 hrs. If stands > 30', the R hip/LB pain extends into the groin. If doesn't move, the R hip becomes painful, and muscles feel tight. Denies pubic symphysis pain. Pt must shift often in sitting due to the pain. L hip pain just started 2 days ago. Pain in the center of the L buttock, described as constant sharp pain for a couple minutes ( different from R side) 1-2 times a day. Prior Treatments and Tests Chiropractor visits for 6 months, stopped in March due to and lack of pain relief. Pt reports X-rays by Chiropractor showed normal R hip & R SI joints. Future Testing and Treatments Planned None Treatment Goals Patient/Caregiver Goals Goal: improve hip mobility to increase tolerance to exercises. Goal: review ex and get on appropriate ex program. Goal: improve mobility of R hip. GoaL: lying on side with greater comfort. 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 Baseline Function- Recreation/Hobbies Body weight exercising 5x/week . Baseline Function- Other Mom of a 5 yr old. Current Functional Impairments (Reported) Functional Limitations- ADL's Pain with sidelying, sitting or standing >30' and walking greater than 1 hour. Functional Limitations- Work/School Limited with sitting for work. 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 Functional Limitations- Recreation/ Makes adjustments as needed Hobbies for exercise routine due to R hip pain. Personal Factors Other Personal Factors That May Effect due date is December 15, Therapy/Recovery 2021. 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 PT-OP-C Subjective Start: 06/20/21 18:32 Freq: Status: Active Protocol: Document 08/22/21 11:18 LRN (Rec: 08/22/21 12:26 LRN [id number]) OP-PT Subjective Patient Comments Patient Comments No pain. Patient Questionnaires Lower Extremity Functional Scale LEFS Score 75 LEFS Impairment 1 to 19% Impaired (Score 63-79 ) Oswestry Low Back Index Oswestry Score 2 Oswestry Impairment 1 to 19% Impaired (Score 1-19) PT-OP-G Mobility & Gait Start: 06/20/21 18:32 Freq: Status: Active Protocol: Document 06/24/21 11:16 LRN (Rec: 06/24/21 12:14 LRN [id number]) OP Gait Assessment Gait Gait Assistance Required: Independent Able to Maintain Weight Bearing Status Yes During Gait Assistive Devices Assistive Device None Comments Gait Comments R hip excessive sway and lifts up on toes (R) from stance phase to toe off. Stair Climbing Evaluation Evaluation Level of Assist On Stairs Independent Devices Stair Climbing Assistive Devices None Technique/Endurance Stair Climbing Direction Ascend and Descend Stair Climbing Technique Step Over Step PT-OP-H Neuro Start: 06/20/21 18:32 Freq: Status: Active Protocol: Document 06/24/21 11:16 LRN (Rec: 06/24/21 12:14 LRN [id number]) Sensation Evaluation Gross Sensation Gross Sensation WNL PT-OP-J Posture/Palpation/Skin Start: 06/20/21 18:32 Freq: Status: Active Protocol: Document 06/24/21 11:16 LRN (Rec: 06/24/21 12:14 LRN [id number]) Posture Evaluation Position Standing T-Spine Posture Flattened L-Spine Posture Increased Lordosis Pelvis Posture Anteriorly Tilted Weight Distribution Balanced Knee Posture (L) Genu Valgus,(R) Genu Valgus Comments Posture Comments In sitting pt move frequently, leaning and sitting on one hip, then the other. Palpation Assessment Location R Hip Palpation Details Decreased R inferior glide of R sacral base, decreased sacral shear to left, R ischium is posterior L TIFFANY is posterior PT-OP-K Range of Motion Start: 06/20/21 18:32 Freq: Status: Active Protocol: Document 08/19/21 11:24 LRN (Rec: 08/19/21 12:08 LRN [id number]) Lumbar Spine Range of Motion Lumbar Spine Active Degrees Testing Position Standing Flexion 23 Extension 5 Rotation Left 40 Rotation Right 45 Lateral Flexion Left 8 Lateral Flexion Right 3 Hip Goniometric Range of Motion Hip Right Passive Testing Position Supine Internal Rotation 35 External Rotation 60 Left Passive Internal Rotation 35 External Rotation 65 PT-OP-L Special Tests Start: 06/20/21 18:32 Freq: Status: Active Protocol: Document 06/27/21 13:40 LRN (Rec: 06/27/21 16:54 LRN [id number]) Special Tests Hip Special Tests Posterior Labral Test Test Results Negative RLE Anterior Labral Test Test Results Negative [facility]LE [facility] Resisted Hip Flexion Test Results Negative RLE MEGHANN Test Results Negative RLE PT-OP-M Strength Start: 06/20/21 18:32 Freq: Status: Active Protocol: Document 06/24/21 11:16 LRN (Rec: 06/24/21 12:14 LRN [id number]) Hand Profile Grinder/Pinch Strength Hand Dominance Hand Dominance Right Hip Strength Hip Manual Muscle Testing Right Flexion (L2) 5 Normal Abduction 4 Good Adduction 3+ Fair+ External Rotation 3+ Fair+ Internal Rotation 5 Normal Left Flexion (L2) 5 Normal Abduction 5 Normal Adduction 5 Normal External Rotation 5 Normal Internal Rotation 5 Normal PT-OP-Q Treatments Start: 06/20/21 18:32 Freq: Status: Active Protocol: Document 08/22/21 11:18 LRN (Rec: 08/22/21 12:26 LRN [id number]) Cardio Equipment Treadmill Duration (Minutes) 10 Speed 1.6 Incline 0 Therapeutic Exercises Supine Exercises Self SI correction training Supine Exercise Name Self correction for SI dysfunction (primarily R anter innominate) Side right Reps/Minutes 8' Comments Review of handout for HEP and education in self treatment Sidelying Exercises Clamshell Sidelying Exercise Name Clamshell Side bilateral Reps/Minutes 10x 2 each Comments Extra time taken for pt to move Sitting Exercises Hip ER/IR strengthening Sitting Exercise Name IR-AROM, ER-isometric, each w/ PF-latesha Side bilateral Reps/Minutes 5 H x 6 reps each Comments V cuing for training during ex . Hip ER stretch Sitting Exercise Name Hip ER stretch Side bilateral Reps/Minutes 3' Longsit hip AB/AD Sitting Exercise Name Long sit devin hip AB/AD Side bilateral Comments Review Knees roll in/out Sitting Exercise Name Knee rolls in/out/PF/Breathing Side bilateral Reps/Minutes 5' Long hold PF Comments V cuing throughout ex needed to coordinate contractions/ mvmts Standing Exercises Plie w/PF Standing Exercise Name Plie with PF contraction Reps/Minutes 5' Comments Extra time to train for plie with PF/breathing coordinatioin Gait Training Gait Activity Gait training on level Description Gait on TM and level ground assessment Level of Assistance None Surface Level Distance/Duration 4' Treatment Focus Normalized gait Comments Pt initially had less hip shift L, but on TM showed less hip shift R, otherise pt gait normal for her level of . Self-Care/Home Management Treatment Education Patient Education Home Exercise Program Activities Self-Care/Home Management Activities Issued & reviewed HEP: self care for SI dysfunction (phase 1 and Self mob), Plie w/PF, and Latesha hip IR/ER with PF. PT-OP-R Modalities Start: 06/20/21 18:32 Freq: Status: Active Protocol: Document 08/05/21 11:14 LRN (Rec: 08/05/21 12:15 LRN [id number]) Hot Pack/Cold Pack Treatment Cold Pack Location Low Back on Pillow Patient Position Prone Treatment Duration (minutes) 10 Patient Tolerance Good PT-OP-T Assessment and Plan Start: 06/20/21 18:32 Freq: Status: Active Protocol: Document 08/22/21 11:18 LRN (Rec: 08/22/21 12:26 LRN [id number]) Physical Therapy Assessment Goals Three Impairment Decreased pelvic/lumbar strength and stability. Impairment R Hip strength: AD 3+/5, AB 4 /5, ER 3+/5. L Hip strength is normal. Pain with sidelying, sitting or standing >30' Short Term Goal (STG) Improve trunk stability with pt able to increase standing tolerance. (07/18/21: Pt reports no pain with standing) STG Duration 08/08/21 (07/18/21: MET GOAL, No pain). [facility] Goal (LTG) Improve pelvic stability with pt able to sit and sidelye with greater comfort (improved tolerance). LTG Duration 09/22/21 (07/18/21: MET GOAL) Two Impairment Asymmetry of Hip/lumbar mobility causing strain and pain in bilateral hips Impairment Hip PROM (in deg's): ER is 65 R, 55L, IR is 25 R, 55 L, PSLR is 80 R, 85 L Lumbar AROM (in deg's): Extension: 3 deg's, Rot: 20 L, 35 R; SB: 10 L, 13 R Pain with walking greater than 1 hour. Short Term Goal (STG) Pt will be educated in proper transfer (log roll) technique and demonstrate improve hip rotation and lumbar extension/ rotation mobility to increase tolerance to exercises. (Hip PROM: in deg's is ER: 60 R, 65L, IR is 25 bilaterally) (Lumbar AROM in deg's: Extension is 5 deg's rot is 40 L, 45 R; SB is 8 L, 3 R) STG Duration 08/08/21 (08/19/21: GOAL MET) [facility] Goal (LTG) Improve symmetry of hip and lumbar mobility with normalization of gait and pt able to do a exercise without sharp pain and worsening of pain. (07/25/21: No sharp pain, but constant ache). (08/22/21: Oswestry Disability Index is 2/100 and LEFS is 75 /80 = 1-19% impaired) LTG Duration 09/22/21 (08/22/21: MET GOAL) One Impairment Lacks appropriate self care HEP. Short Term Goal (STG) Pt will educated in proper posture in standing, sitting & for sleeping. Pt's current exercise reviewed and modified as needed for appropriate exercise. STG Duration 08/08/21 (07/25/21: MET GOAL) Light Bulb Assembler Goal (LTG) Pt will be independent in a self care HEP appropriate for her ending condition to include hip/trunk mobility and trunk/pelvic stabilization. (06/27/21: Verbal I/S for 4pt TA tightening & Clamshell) (07/18/21: Added trunk mobility HEP) (07/29/21: Added Sitting roll in/out w/PF/breathing). (08/01/20: Added ankle and verbal I/S for active longsit hip AB/AD strengthening). (08/22/21: Added self care for correction of SIJ dysfunction , latesha hip IR/ER & PF strengthening, and standing plie w/PF tightening). LTG Duration 09/22/21 (08/22/21: MET GOAL) Progress Towards Goals Progress Towards Goals Goals Met Assessment Summary Assessment Pt has done very well with physical therapy. At this time she is stable in her SIJ' s, but it is possible that as she progresses in her therapy that some dysfunction may occur that she is unable to self correct for on her HEP. She would be a good candidate at that time for referral back to therapy. The pt has met all her goals; therefore she is ready to be discharged to her HEP. Physical Therapy Plan Discharge Physical Therapy Discharge Reasons Goals Met Discharge Comments Thank you for your referral.
== END 2021-08-25 10:17 ==
LOC: PHYS 11:15
PROVIDERS: Family Provider Family Medicine; PCP Family Medicine; Referring Provider Family Medicine; Visit Provider Family Medicine
DX: S76.011A Strain of muscle, fascia and tendon of right hip, initial encounter (principal)
CPT/HCPCS: 97110; 97140; 97162; 97530; 97535

== ENCOUNTER → 2021-08-29 12:11 | Outpatient (CLI) | payer OTHER, MEDICAID, SELFPAY ==
[2021-08-29 15:39] LABS: GTT (PREG) 1 Hour PP 50gm Dose 115 mg/dL (76-139)
[2021-08-29 16:01] LABS: Add Manual Diff / Slide Review NO; Basophils Absolute Auto 0 /uL (0-100); Basophils Percent Auto 0.3 % (0-2); Eosinophils Absolute Auto 0 /uL (0-450); Eosinophils Percent Auto 0.6 % (2-4); Hematocrit 33.1 % (36-46); Hemoglobin 11.4 g/dL (12.0-16.0); Lymphocytes Absolute Auto 1200 /uL (1100-4500); Lymphocytes Percent Auto 17.9 % (25-40); Mean Corpuscular HGB Conc 34.5 % (30-36); Mean Corpuscular Hemoglobin 32.2 PG (26-34); Mean Corpuscular Volume 93.4 fL (80-100); Monocytes Absolute Auto 500 /uL (0-900); Monocytes Percent Auto 7.9 % (3-14); Neutrophils Absolute Auto 5000 /uL (1500-7000); Neutrophils Percent Auto 73.3 % (50-75); Platelet Count 173 X10^3/uL (150-400); Red Blood Cell Count 3.54 X10^6/uL (4.0-5.2); Red Cell Distribution Width 12.3 % (11.6-14.8); White Blood Cell Count 6.8 X10^3/uL (4.5-11.0)
== END ==
PROVIDERS: Family Provider Family Medicine; PCP Family Medicine; Referring Provider Family Medicine; Visit Provider Family Medicine
DX: Z34.90 Encounter for supervision of normal pregnancy, unspecified, unspecified trimester (principal)
CPT/HCPCS: 36415; 82950; 85025

== ENCOUNTER → 2021-11-19 14:54 | Outpatient (CLI) | payer BC, OTHER, MEDICAID, SELFPAY ==
[2021-11-20 14:06] LABS: Strep Grp B PCR NEG for Grp B Strep
== END ==
PROVIDERS: Family Provider Family Medicine; PCP Family Medicine; Visit Provider Family Medicine
DX: Z34.93 Encounter for supervision of normal pregnancy, unspecified, third trimester (principal); Z3A.36 36 weeks gestation of pregnancy
CPT/HCPCS: 87653

== ENCOUNTER → 2021-12-10 11:06 | Outpatient (CLI) | payer BC, OTHER, MEDICAID, SELFPAY ==
[2021-12-10 12:40] LABS: Add Manual Diff / Slide Review NO; Basophils Absolute Auto 0 /uL (0-100); Basophils Percent Auto 0.2 % (0-2); Eosinophils Absolute Auto 0 /uL (0-450); Eosinophils Percent Auto 0.3 % (2-4); Hemoglobin 11.8 g/dL (12.0-16.0); Lymphocytes Absolute Auto 1400 /uL (1100-4500); Lymphocytes Percent Auto 18.2 % (25-40); Mean Corpuscular HGB Conc 34.8 % (30-36); Mean Corpuscular Hemoglobin 32.1 PG (26-34); Mean Corpuscular Volume 92.2 fL (80-100); Monocytes Absolute Auto 500 /uL (0-900); Neutrophils Absolute Auto 5900 /uL (1500-7000); Neutrophils Percent Auto 75.3 % (50-75); Platelet Count 187 X10^3/uL (150-400); Red Blood Cell Count 3.69 X10^6/uL (4.0-5.2); Red Cell Distribution Width 12.8 % (11.6-14.8); White Blood Cell Count 7.8 X10^3/uL (4.5-11.0)
[2021-12-10 13:27] LABS: Alanine Aminotransferase 18 IU/L (<35); Albumin 3.4 g/dL (3.5-5.0); Albumin Globulin Ratio 1.2 (1.0-2.8); Alkaline Phosphatase 143 U/L (38-126); Aspartate Aminotransferase 30 IU/L (14-36); BUN Creatinine Ratio 9.7 (6-22); Bilirubin Total 0.2 mg/dL (0.2-1.3); Blood Urea Nitrogen 6 mg/dL (7-17); Calcium 9.1 mg/dL (8.4-10.2); Carbon Dioxide 23 mmol/L (22-32); Chloride 104 mmol/L (98-107); Estimated Glomerular Filt Rate > 60 mL/min (>60); Globulin 2.8 g/dL (1.7-4.1); Glucose 108 mg/dL (70-100); HEMOLYSIS < 15 (0-50); Sodium 134 mmol/L (137-145); Total Protein 6.2 g/dL (6.3-8.2)
[2021-12-10 16:55] LABS: Creatinine Urine Random 56.5 mg/dL; Protein (Total) Urine Random 8 mg/dL (0-12); Protein Creatinine Ratio Urine 0.14 GRAM/24H
== END ==
PROVIDERS: Family Provider Family Medicine; PCP Family Medicine; Referring Provider Family Medicine; Visit Provider Family Medicine
DX: O13.9 Gestational [pregnancy-induced] hypertension without significant proteinuria, unspecified trimester (principal); Z3A.39 39 weeks gestation of pregnancy
CPT/HCPCS: 36415; 80053; 82570; 84156; 85025

== ENCOUNTER 2021-12-10 11:41 | Observation (INO) | payer BC, OTHER, MEDICAID, SELFPAY ==
--- NOTE | 2021-12-10 13:34 | P.TNLD_ITS ---
Visit Information Visit Information Date of evaluation: 12/10/21 Primary OB Provider: Michelle Peralta Reason for Evaluation: Yes non-stress test non-stress test reason: hypertension/pre-eclampsia Comments/Additional reasons for admission: Pt is a 41yo at 39w2d here for NST due to elevated BPs at home. Pt reports BPs at home on multiple occasions > 140 systolic. She has worsening swelling. Mild headache that resolved this morning. No vision changes or RUQ abdominal pain. [facility] Medical History (Updated 12/10/21 @ 13:39 by Michelle Peralta MD) Abnormal Pap smear of cervix (~2003) Anemia (~2009) Blindness (~2013) Chicken pox (~1987) Herpes (~2015) Human papilloma virus (~2004) Menorrhagia with regular cycle (05/31/15) PMDD (premenstrual dysphoric disorder) depression associated with first (~06/2016) Secondary dysmenorrhea (05/31/15) Surgical History (Updated 04/30/21 @ 12:26 by Dior Basilio RN) Anesthesia History of hand surgery (~2007) History of third molar tooth extraction (~2000) Status post sclerotherapy of varicose veins (~2006) Family History (Updated 04/30/21 @ 12:36 by Dior Basilio RN) Grandfather Sepsis Type 2 diabetes mellitus Grandmother COPD (chronic obstructive pulmonary disease) Smoker Mother Hypertension Father Hypertension Stroke Grandfather Alzheimer's dementia Grandmother Type 2 diabetes mellitus Social History marital status: number of children: 1 household members: spouse and children lives independently: Yes caregiver/support person: No housing: house pets and animals: No education level: college occupational status: employed current occupational exposures/hazards: No jessica/rastafari: Faith seatbelt use: always working smoke detector in home: Yes fire extinguisher in home: Yes carbon monox detector in home: Yes firearms in home: No do you feel safe at home: Yes Smoking Status: Former smoker Tobacco: How many years used: 15 quit status: has quit before second hand exposure: No alcohol intake: former substance use type: does not use during the past year weight has: remained stable well-balanced diet: about half the time daily servings fruits/ve or more times/day caffeine: Yes (Current aversion: used to drink 2 cups/day. Aware of limits. ) Type(s) of exercise: other and normal ROM and activity frequency: 5-6 times per week duration: 30-45 minutes/day Evaluation Evaluation Baseline heart rate: 130 Variability: Moderate (11-25) monitor accelerations: Present Monitor Decelerations: Absent Category of Tracing: Reactive Diagnosis, Plan/Disposition Final Diagnosis (1) Gestational hypertension: Status: Acute (2) 39 weeks gestation of : Status: Acute Plan/Disposition Plan: 41yo at 39w2d here for NST for questionable gestational HTN based on intermittently elevated BPs at home. BP good range. Pre-eclampsia/HELLP labs pending. NST reactive. Stable for d/c home. Has appt later today - will discuss IOL at appt. OB Disposition: home
== END 2021-12-10 13:20 | disposition home or self-care (01) ==
PROVIDERS: Admitting Provider Family Medicine; Family Provider Family Medicine; PCP Family Medicine; Referring Provider Family Medicine; Visit Provider Family Medicine
DX: O13.3 Gestational [pregnancy-induced] hypertension without significant proteinuria, third trimester (principal); Z3A.39 39 weeks gestation of pregnancy
CPT/HCPCS: 36415; 59025; 80053; 82570; 84156; 85025; G0378; G0379

== ENCOUNTER 2021-12-13 09:54 | Outpatient (CLI) | payer BC, OTHER, MEDICAID, SELFPAY ==
--- NOTE | 2021-12-13 10:38 | PM.OBTRLD ---
Visit Information Visit Information Date of evaluation: 12/13/21 Primary OB Provider: Michelle Peralta On-call OB Provider: Stormy Barry Reason for Evaluation: Yes non-stress test Comments/Additional reasons for admission: This patient is a 41yo P1 @39+5 with gestational HTN, presenting for an NST. Reports went to fill her labetalol and was told by pharmacist it would not be effective so has not started medication. No NJ/visual changes, RUQ pain, having intermittent ctx. No LOF/VB Vital Signs Vital Signs: 144/87, HR 98 PFSH Medical History Abnormal Pap smear of cervix (~2003) Anemia (~2009) Blindness (~2013) Chicken pox (~1987) Herpes (~2015) Human papilloma virus (~2004) Menorrhagia with regular cycle (05/31/15) PMDD (premenstrual dysphoric disorder) depression associated with first (~06/2016) Secondary dysmenorrhea (05/31/15) Surgical History Anesthesia History of hand surgery (~2007) History of third molar tooth extraction (~2000) Status post sclerotherapy of varicose veins (~2006) Family History Grandfather Sepsis Type 2 diabetes mellitus Grandmother COPD (chronic obstructive pulmonary disease) Smoker Mother Hypertension Father Hypertension Stroke Grandfather Alzheimer's dementia Grandmother Type 2 diabetes mellitus Social History marital status: number of children: 1 household members: spouse and children lives independently: Yes caregiver/support person: No housing: house pets and animals: No education level: college occupational status: employed current occupational exposures/hazards: No jessica/church: Restoration seatbelt use: always working smoke detector in home: Yes fire extinguisher in home: Yes carbon monox detector in home: Yes firearms in home: No do you feel safe at home: Yes Smoking Status: Former smoker Tobacco: How many years used: 15 quit status: has quit before second hand exposure: No alcohol intake: former substance use type: does not use during the past year weight has: remained stable well-balanced diet: about half the time daily servings fruits/ve or more times/day caffeine: Yes (Current aversion: used to drink 2 cups/day. Aware of limits. ) Type(s) of exercise: other and normal ROM and activity frequency: 5-6 times per week duration: 30-45 minutes/day Review of Systems Constitutional Constitutional: Reports system reviewed and no additional complaints, except as documented Evaluation Evaluation Baseline heart rate: 140 Variability: Moderate (11-25) monitor accelerations: Present Monitor Decelerations: Absent Contraction Frequency (minutes): 3 Category of Tracing: Reactive Status: Category l Diagnosis, Plan/Disposition Plan/Disposition Plan: Home with labor and PIH precautions. Due to OR construction, no IOLs today, planning either tomorrow or Wednesday. OB Disposition: home
== END 2021-12-13 10:45 | disposition home or self-care (01) ==
LOC: LABOR 09:59 → OB 12-15 10:22
PROVIDERS: Family Provider Family Medicine; PCP Family Medicine; Referring Provider Family Medicine; Visit Provider Family Medicine
DX: O13.3 Gestational [pregnancy-induced] hypertension without significant proteinuria, third trimester (principal); Z3A.39 39 weeks gestation of pregnancy
CPT/HCPCS: 59025; G0378; G0379

== ENCOUNTER 2021-12-16 06:56 | Inpatient (IN) | payer BC, OTHER, MEDICAID, SELFPAY ==
--- NOTE | 2021-12-16 07:39 | PM.OBHP.IH.1 ---
OB HPI Date/Time Date of admission: 12/16/21 Date Patient Seen: 12/16/21 Time Patient Seen: 07:45 History of Present Condition Chief complaint: INDUCTION FARHAD Calculator Estimated Delivery Date Method Current WG Current Estimate 12/15/21 Manual 40w 1d Final FARHAD - JASON Other Estimates 12/15/21 LMP (Certain) 40w 1d 12/12/21 Ultrasound #1 40w 4d Estimated Gestational Age (weeks): 40w1d : 3 Para: 1 Narrative: 41yo at 40w1d here for IOL for gestational hypertension. Pt reports her swelling improved slightly this morning from last night. She denies any vision changes, headaches, or RUQ abdominal pain. She was previously having some headaches and vision changes. She is feeling her baby move regularly. She has mild intermittent contractions. She denies any LOF or vaginal bleeding. The pts was complicated by gestational hypertension, diagnosed around 1 week ago based on repeatedly elevated BPs. She was started on PO Labetalol on 12/11 due to elevated BPs, and being unable to induce due to staffing issues. The pt has taken doses only once/day, and did have one this morning. Lab work last week did not reveal pre-eclampsia/HELLP. Her has otherwise been uncomplicated. care: good care, initiated at week # (8) and pounds weight gain (57) Dating criteria OB: LMP confirmed by 1st trimester US Ultrasounds: normal 1st trimester US and normal mid trimester US Obstetrical complications: gestational hypertension Medical complications OB: none Indications Indication for induction OB: gestational HTN/pre-eclampsia Preadmission Labs Last OB Lab Results: Blood Type O Positive 05/29/21 15:03 05/29/21 Antibody Screen Negative 05/29/21 15:03 05/29/21 Hematocrit 34.0 % (36-46) L 12/10/21 11:27 12/10/21 Hemoglobin 11.8 g/dL (12.0-16.0) L 12/10/21 11:27 12/10/21 Hepatitis B Surface Antigen Negative s/c (NEGATIVE) 05/29/21 15:03 05/29/21 Hepatitis C Antibody Negative s/c (NEGATIVE) 05/29/21 15:03 05/29/21 Rubella Antibody 20.2 IU/mL (>15) 05/29/21 15:03 05/29/21 Varicella-Zoster IgG Antibody 722 index (Immune >165) 05/29/21 15:03 05/29/21 Glucose 1 Hour 115 mg/dL (76-139) 08/29/21 13:35 08/29/21 Group B Streptococcus (PCR) Neg for grp b strep 11/19/21 14:54 11/19/21 -: Urine: negative -: PAP smear: Normal Genetic Screens: Cell-free DNA: Normal External Labs -: Urine: negative Prior (ies) Past Pregnancies Del. Date GA/Weeks Labor Lgth Wt Sex Route Outcome Anesthesia Place Delv Breastfeed Preg Comp Name 05/12/13 4 elective 07/01/16 42 2 8 lb 14 oz Male vaginal live - full term none IH w Dr. Tovar, Dr. Verma assisted w placenta. 18 mos; frenotomy, mastitis. post-dates induction [place] Delivery Date: 07/01/16 Last Updated by: Dior Basilio R.N. Cytotec/Pitocin post-dates induction. Rapid labor/. Retained placenta at delivery; manually removed in pieces w Luci assist. Had kidney infection , thought to be r/t manual removal procedure. PPD but did not seek help. Evaluation Evaluation Baseline heart rate: 130 Variability: Moderate (11-25) monitor accelerations: Present Monitor Decelerations: Absent Status: Category l Dilation (cm): 3 Effacement (%): 70 Dilation: 3-4 cm Effacement: 60-70% station: -1 Position of cervix: mid Consistency: soft Arriaga score: 9 PFSH Medical History Abnormal Pap smear of cervix (~2003) Anemia (~2009) Blindness (~2013) Chicken pox (~1987) Herpes (~2015) Human papilloma virus (~2004) Menorrhagia with regular cycle (05/31/15) PMDD (premenstrual dysphoric disorder) depression associated with first (~06/2016) Secondary dysmenorrhea (05/31/15) Surgical History Anesthesia History of hand surgery (~2007) History of third molar tooth extraction (~2000) Status post sclerotherapy of varicose veins (~2006) Family History Grandfather Sepsis Type 2 diabetes mellitus Grandmother COPD (chronic obstructive pulmonary disease) Smoker Mother Hypertension Father Hypertension Stroke Grandfather Alzheimer's dementia Grandmother Type 2 diabetes mellitus Social History marital status: number of children: 1 household members: spouse and children lives independently: Yes caregiver/support person: No housing: house pets and animals: No education level: college occupational status: employed current occupational exposures/hazards: No jessica/restorationism: Anabaptist seatbelt use: always working smoke detector in home: Yes fire extinguisher in home: Yes carbon monox detector in home: Yes firearms in home: No do you feel safe at home: Yes Smoking Status: Former smoker Tobacco: How many years used: 15 quit status: has quit before second hand exposure: No alcohol intake: former substance use type: does not use during the past year weight has: remained stable well-balanced diet: about half the time daily servings fruits/ve or more times/day caffeine: Yes (Current aversion: used to drink 2 cups/day. Aware of limits. ) Type(s) of exercise: other and normal ROM and activity frequency: 5-6 times per week duration: 30-45 minutes/day Meds Home Medications and Allergies Home Medications Medication Instructions Recorded Confirmed Type choline 250 mg tablet mg PO 04/30/21 11/26/21 History omega-3 fatty acids 1,000 mg 1,000 mg PO BID 04/30/21 11/26/21 History capsule (Fish Oil Concentrate) prenat.vits,carmelo,lks-[id number] 1 tab PO DAILY 04/30/21 11/26/21 History labetalol 100 mg tablet 100 mg PO BID #30 tab 12/11/21 12/11/21 Rx Allergies Allergy/AdvReac Type Severity Reaction Status Date / Time amoxicillin Allergy Severe RASH/Hives Verified 12/10/21 13:45 penicillin G Allergy Severe RASH/Hives Verified 12/10/21 13:45 hydrocodone Allergy Mild ITCHING Unverified 12/10/21 13:45 methylprednisolone AdvReac Severe flu like Verified 12/16/21 07:41 sxs, dizzy, blurred vision, h/a OB Exam Narrative Exam Narrative: Gen: NAD, sitting comfortably in bed, appears well CV: RRR, no murmurs Resp: clear to auscultation bilaterally Abd: soft, nontender, gravid Ext: no edema Assessment and Plan Assessment and Plan Assessment and Plan narrative: Pt is a 41yo at 40w1d here for IOL for gestational hypertension, diagnosed around 39 weeks. IOL delayed due to L&D staffing. Pt started on PO Labetalol last week, but has only been taking it once/day with improvement in her BPs. Last labs without evidence of pre-eclampsia/HELLP. No other complications with her . GBS negative, Rh positive. Arriaga score 9. - CMP, CBC, protein/creatinine ratio today - Closely monitor BPs - Expectant management, anticipate - FHT reassuring - Desires natural methods for pain control - GBS negative, no prophylaxis indicated - Start pitocin, titrate as tolerated - Plan for AROM once with regular painful contractions
[2021-12-16] MEDS: LACTATED RINGERS 1,000 ML 100 ML IV (08:44)
[2021-12-16] MEDS: OXYTOCIN PREMIX 30 UNIT/500 ML PLAST..BAG IV (08:53)
[2021-12-16 08:58] LABS: Add Manual Diff / Slide Review NO; Basophils Absolute Auto 0 /uL (0-100); Basophils Percent Auto 0.3 % (0-2); Eosinophils Absolute Auto 100 /uL (0-450); Eosinophils Percent Auto 0.8 % (2-4); Lymphocytes Absolute Auto 1600 /uL (1100-4500); Lymphocytes Percent Auto 20.9 % (25-40); Mean Corpuscular HGB Conc 33.4 % (30-36); Mean Corpuscular Hemoglobin 31.3 PG (26-34); Mean Corpuscular Volume 93.7 fL (80-100); Monocytes Absolute Auto 700 /uL (0-900); Monocytes Percent Auto 8.6 % (3-14); Neutrophils Absolute Auto 5300 /uL (1500-7000); Neutrophils Percent Auto 69.4 % (50-75); Platelet Count 172 X10^3/uL (150-400); Red Blood Cell Count 3.84 X10^6/uL (4.0-5.2); White Blood Cell Count 7.6 X10^3/uL (4.5-11.0)
[2021-12-16 09:16] VITALS: BP 131/86
[2021-12-16 09:17] LABS: Alanine Aminotransferase 21 IU/L (<35); Albumin 3.9 g/dL (3.5-5.0); Albumin Globulin Ratio 1.2 (1.0-2.8); Alkaline Phosphatase 163 U/L (38-126); Aspartate Aminotransferase 33 IU/L (14-36); BUN Creatinine Ratio 11.5 (6-22); Bilirubin Total 0.3 mg/dL (0.2-1.3); Blood Urea Nitrogen 7 mg/dL (7-17); Calcium 9.1 mg/dL (8.4-10.2); Carbon Dioxide 22 mmol/L (22-32); Chloride 105 mmol/L (98-107); Estimated Glomerular Filt Rate > 60 mL/min (>60); Globulin 3.2 g/dL (1.7-4.1); Glucose 82 mg/dL (70-100); HEMOLYSIS < 15 (0-50); Sodium 134 mmol/L (137-145); Total Protein 7.1 g/dL (6.3-8.2)
[2021-12-16 09:19] LABS: COVID19 -Nasal RAPID Negative (Negative)
--- NOTE | 2021-12-16 13:13 | PM.OBPNLAB ---
Date/Time Date Patient Seen: 12/16/21 Time Patient Seen: 13:13 Pain Control Pain control: tolerating well Pelvic Exam Dilation (cm): 3 Effacement (%): 70 station: 0 Amniotic membrane status: Ruptured Comments: After informed consent, AROM performed with production of clear fluid. Contractions Pitocin rate (mU/min): 13 Contraction frequency (min): 3 Contraction pattern: Regular Contraction intensity: Mild Status status: Category l Heart Rate Baseline: 140 Monitor Accelerations: Present Monitor Decelerations: Absent Monitor Variability: Moderate Assessment and Plan Comments: 41yo at 40w1d here for IOL for gestational HTN. BPs in acceptable range. GBS negative, Rh positive. AROM performed with production of clear fluid. - Expectant management, anticipate - FHT reassuring - Desires natural methods for pain control - Continue pitocin, titrate as tolerate to regular painful contractions
[2021-12-16 13:28] LABS: Creatinine Urine Random 48.6 mg/dL; Protein (Total) Urine Random 9 mg/dL (0-12); Protein Creatinine Ratio Urine 0.18 GRAM/24H
--- NOTE | 2021-12-16 16:39 | P.PCNOB_ITS ---
Events: Induced HTN Labor & Delivery Delivery date: 12/16/21 Intrapartal Events: None Cervical ripening method: none Induction method: per pitocin protocol Delivery augmentation: rupture of membranes Delivery monitor: external FHT and external uterine Route of delivery: Episiotomy description: None L&D Laceration Description: None Quantitative Blood Loss: 350 Anesthesia Type: None Complications: None Narrative: PROCEDURE: at 40w1d presented for IOL for gestational hypertension and was admitted to Labor and Delivery. The patient progressed through the 1st stage over 20 hours. Pain was controlled with natural methods. The pt was initiated on pitocin, titrated to maximum of 13mU. AROM was performed with clear fluid present. The patient progressed through the 2nd stage over 6 minutes and delivered a viable female infant with APGARs 8/9 at 16:03 via without complications. The cord was cut and clamped after it stopped pulsating. The perineum and vagina were inspected with no lacerations. PREPROCEDURE DIAGNOSIS: Intrauterine at 40w1d Gestational hypertension GBS negative RH positive POSTPROCEDURE DIAGNOSIS: Intrauterine at 40w1d, delivered Same as preprocedure [place] Baby 1: gender: Female Presentation: vertex Position: Left Occiput Anterior Placenta delivery description: Spontaneous Cord Vessel Description: 3 Vessels score (1 min): 8 score (5 min): 9 weight: 9 lb 1.047 oz Plan for aftercare: Routine care
[2021-12-16 17:35] VITALS: TEMP 37
[2021-12-16] MEDS: IBUPROFEN 600 MG TABLET PO (17:35)
[2021-12-16 17:37] VITALS: TEMP 37
[2021-12-16] MEDS: ACETAMINOPHEN 325 MG TABLET 650 MG PO (17:37)
[2021-12-16] MEDS: DERMOPLAST SPRAY 20% 60 ML 1 SPRAY TOP (18:41)
[2021-12-17] MEDS: IBUPROFEN 600 MG TABLET PO (03:08)
[2021-12-17] MEDS: ACETAMINOPHEN 325 MG TABLET 650 MG PO (03:08)
[2021-12-17] MEDS: LANOLIN OINT 7 GM 1 APPLIC TOP (09:05)
[2021-12-17] MEDS: DOCUSATE 100 MG CAPSULE PO (09:06)
[2021-12-17] MEDS: PRENATAL VIT,CALC/IRON/FOLIC 1 TABLET 1 TAB PO (09:06)
--- NOTE | 2021-12-17 10:09 | P.DS_ITS ---
Discharge Providers Provider Date of admission: 12/16/21 06:56 Discharge Date: 12/17/21 Primary care physician: Silvia Tovar MD Consults: 12/17/21 16:38 Consult to Manager Of Compensation Routine Comment: Discharge provider: Michelle Peralta MD Summary Hospital Course Date Patient Seen: 12/17/21 Time Patient Seen: 08:00 Diagnoses: 401wd gestation GBS negative Rh positive Gestational hypertension Hospital Course: The pt presented for IOL for gestational hypertension. She received pitocin for induction. AROM was performed with production of clear fluid. She progressed to complete and had a without complications for delivery of a viable baby girl. There were no lacerations. , there were no complications. At the time of discharge she was voiding, ambulating, and passing flatus without difficulty. Her lochia was decreasing appropriately. She was with good latch. Her pain was well controlled. Her BPs were all < 150/100, and the pt will not be discharged on antihypertensives. The pt will f/u in 6 weeks for check. Her plans on vasectomy for contraception, and pt will bridge with OCPs. Peripartum Data Delivery Method: Natural Vaginal Laceration Description: None Episiotomy description: None Procedures: Spontaneous vaginal delivery complications: none 1: Gender: Female Disposition of : home Status at Discharge Cognitive/behavioral status at discharge: oriented Functional status at discharge: independent ambulation Overall status at discharge: patient is progressing back to baseline Time Spent with Patient Time attestation: Total time spent providing and/or coordinating discharge services: Objective Labs Result Diagrams: 12/16/21 08:40 12/16/21 08:40 Labs: Laboratory Results - last 24 hr 12/16/21 10:20 U Random Total Protein 9 Urine Creatinine 48.6 Protein/Creatinin Ratio 0.18 Exam Narrative Exam Narrative: Gen: NAD, sitting comfortably in bed, appears well CV: RRR, no murmurs Resp: clear to auscultation bilaterally Abd: soft, appropriately tender, fundus firm and below the umbilicus, nondistended Ext: no edema Discharge Plan Discharge Plan Patient Disposition: Home Discharge orders & Medications Prescriptions: New acetaminophen 325 mg Tablet 650 mg PO Q6HR PRN (Reason: Pain, Mild (1-3)) Qty: 30 0RF docusate sodium 100 mg Capsule 100 mg PO DAILY Qty: 30 0RF ibuprofen 600 mg Tablet 600 mg PO Q6HR PRN (Reason: Pain, Mild (1-3)) Qty: 30 0RF Continued prenat.vits,carmelo,gta-[id number]-[id number] Tablet 1 tab PO DAILY 0RF omega-3 fatty acids [Fish Oil Concentrate] 1,000 mg capsule 1,000 mg PO BID 0RF choline 250 mg tablet PO 0RF Discontinued labetalol 100 mg tablet 100 mg PO BID Qty: 30 0RF Follow up/Referrals: Michelle Peralta MD [Physician] - 6 Weeks Silvia Tovar MD [Primary Care Provider] - Diet/Activity/Treatments Diet: Diet as Tolerated and Regular Skin/Wound/Dressing Care Report to your healthcare provider any signs of infection, such as:: chills, fever, increased pain and unusual drainage Visit Report/Discharge Packet Instructions: DI for Labor and Delivery, Vaginal Visit Report Forms: Patient Portal/API, Stroke Signs & Symptoms Discharge Data Primary Care Provider: Silvia Tovar
[2021-12-17 12:55] VITALS: BP 137/94; PULSE 96; RESP 16; TEMP 36.9
== END 2021-12-17 14:10 | disposition home or self-care (01) | DRG 807 ==
PROVIDERS: Admitting Provider Family Medicine; Family Provider Family Medicine; PCP Family Medicine; Referring Provider Family Medicine; Visit Provider Family Medicine
DX: O48.0 Post-term pregnancy (principal); O13.4 Gestational [pregnancy-induced] hypertension without significant proteinuria, complicating childbirth; Z37.0 Single live birth; Z3A.40 40 weeks gestation of pregnancy; Z20.822 Contact with and (suspected) exposure to COVID-19
CPT/HCPCS: 36415; 59050; 59410; 80053; 82570; 84156; 85025; 86850; 86900; 86901; 87635; C9803; G0379; J2590

== ENCOUNTER → 2021-12-30 12:12 | Outpatient (CLI) | payer BC, OTHER, MEDICAID, SELFPAY ==
[2021-12-30 13:35] LABS: Add Manual Diff / Slide Review NO; Basophils Absolute Auto 0 /uL (0-100); Basophils Percent Auto 0.7 % (0-2); Eosinophils Absolute Auto 100 /uL (0-450); Eosinophils Percent Auto 1.5 % (2-4); Hematocrit 37.3 % (36-46); Hemoglobin 12.3 g/dL (12.0-16.0); Lymphocytes Absolute Auto 1700 /uL (1100-4500); Mean Corpuscular Hemoglobin 30.8 PG (26-34); Mean Corpuscular Volume 93.2 fL (80-100); Monocytes Absolute Auto 400 /uL (0-900); Monocytes Percent Auto 7.8 % (3-14); Neutrophils Absolute Auto 3300 /uL (1500-7000); Platelet Count 311 X10^3/uL (150-400); Red Blood Cell Count 4.01 X10^6/uL (4.0-5.2); Red Cell Distribution Width 12.7 % (11.6-14.8); White Blood Cell Count 5.6 X10^3/uL (4.5-11.0)
[2021-12-30 14:17] LABS: Alanine Aminotransferase 30 IU/L (<35); Albumin 4.4 g/dL (3.5-5.0); Albumin Globulin Ratio 1.5 (1.0-2.8); Alkaline Phosphatase 107 U/L (38-126); Aspartate Aminotransferase 37 IU/L (14-36); BUN Creatinine Ratio 17.6 (6-22); Bilirubin Total 0.4 mg/dL (0.2-1.3); Blood Urea Nitrogen 13 mg/dL (7-17); Carbon Dioxide 27 mmol/L (22-32); Chloride 104 mmol/L (98-107); Estimated Glomerular Filt Rate > 60 mL/min (>60); Glucose 78 mg/dL (70-100); HEMOLYSIS < 15 (0-50); Potassium 4.2 mmol/L (3.4-5.1); Sodium 139 mmol/L (137-145); Total Protein 7.4 g/dL (6.3-8.2)
[2021-12-30 16:26] LABS: Creatinine Urine Random 23.6 mg/dL; Protein (Total) Urine Random 20 mg/dL (0-12); Protein Creatinine Ratio Urine 0.84 GRAM/24H
== END ==
PROVIDERS: Family Provider Family Medicine; PCP Family Medicine; Referring Provider Family Medicine; Visit Provider Family Medicine
DX: O13.3 Gestational [pregnancy-induced] hypertension without significant proteinuria, third trimester (principal)
CPT/HCPCS: 36415; 80053; 82570; 84156; 85025

== ENCOUNTER → 2022-02-06 10:02 | Outpatient (CLI) | payer BC, OTHER, MEDICAID, SELFPAY ==
--- NOTE | 2022-02-06 10:03 | DI.US.S_ITS ---
PROCEDURE: US PELVIC COMPLETE INDICATIONS: HX PELVIC MASS TECHNIQUE: Real-time scanning was performed of the pelvic organs, with image documentation. Additional endovaginal scanning was necessary due to incomplete visualization of the adnexal and endometrial structures by transabdominal scanning. COMPARISON: [facility], US, US OB <= 14 WEEKS FETUS, 05/07/2021, 8:07. [facility] Ultrasound, US, US OB GROWTH, 09/24/2021, 9:55. FINDINGS: Uterus: Uterus is anteverted and normal in size at 8.1 x 4.3 x 7.3 cm. The myometrium is homogeneous. The endometrium measures 2.2 mm combined thickness. Ovaries: The right ovary measures 2.4 x 1.2 x 1.2 cm, with a calculated ovarian volume of 1.8 cc. The left ovary measures 1.9 x 0.9 x 2.3 cm, with a calculated ovarian volume of 2.0 cc. The ovaries have a normal sonographic appearance. Less than 12 follicles can be seen in each ovary. No adnexal masses are seen. Other: There is a 4.0 x 1.6 x 3.0 cm mildly complex, nonvascular fluid collection posterior to the cervix. IMPRESSION: 1. Normal uterus and ovaries. 2. A 4.0 x 1.3 x 3.0 cm fluid collection posterior to cervix. Etiology is uncertain. If clinically indicated, CT with intravenous and oral contrast or gynecological MRI may be obtained for further evaluation. We strive to produce accurate, complete, and clear reports of imaging services. To assist us in improving patient care, this report was composed using standard report templates and voice recognition software. Therefore, it may contain abnormal punctuation, insertions and/or omissions. Occasional wrong-word or sound-alike substitutions may occur. Though we review the report and make efforts to correct it, we do recommend that the report be read carefully in proper context to recognize any text inaccuracies. Dictated by: Odessa Wood M.D. on 02/06/2022 at 17:35 Approved by: Odessa Wood M.D. on 02/06/2022 at 17:51
== END ==
PROVIDERS: Family Provider Family Medicine; PCP Family Medicine; Referring Provider Family Medicine; Visit Provider Family Medicine
DX: R19.00 Intra-abdominal and pelvic swelling, mass and lump, unspecified site (principal)
CPT/HCPCS: 76830; 76856

== ENCOUNTER → 2022-03-09 10:52 | Outpatient (CLI) | payer BC, OTHER, MEDICAID, SELFPAY ==
--- NOTE | 2022-03-09 10:55 | DI.MRI.S_ITS ---
PROCEDURE: MR PELVIS WO/W CON INDICATIONS: Pelvic mass TECHNIQUE: Coronal HASTE, sagittal breath-hold T2 FSE; axial T1 FSE with and without fat saturation through the pelvis. Optional long- and short-axis uterine nonbreath-hold T2 FSE through the uterus. Sagittal or axial dynamic VIBE during administration of contrast. Post-contrast axial or coronal VIBE/2-D FLASH with fat saturation from the iliac crests to the symphysis. Optional diffusion weighted imaging and ADC may be performed. COMPARISON: Pelvic ultrasound 02/06/2022. FINDINGS: Image quality: Adequate but suboptimal due to motion and wrap artifacts and non-orthogonal planes for small FOV imaging. Uterus: Uterus is normal in size. Endometrium is not thickened measuring 2-3 mm. Adnexa: Both ovaries are unremarkable in appearance without suspicious cystic or solid lesions. Urinary system: Bladder wall is normal in thickness. Distal ureters are non distended. Nodes and vessels: No pelvic or inguinal adenopathy by size criteria. Iliac vessels are normal in size. Bowel and peritoneum: At the right aspect of the cul-de-sac, a small fluid collection is present measuring 2.7 x 1.4 x 3.1 centimeters (sagittal T2 series 3, image 7 and coronal T2 series 2, image 26). This likely corresponds to the collection from the recent pelvic ultrasound. The collection has signal similar to water on T2 weighted images, and on T1 weighted images it is minimally hyperintense, greater than urine within the bladder. No internal soft tissue nodularity or definite enhancement. This finding is separate from the right ovary. No substantial free/non-loculated appearing pelvic fluid. Inferior colon and small bowel loops are normal in caliber. Soft tissues: No inguinal hernias. Bones: Marrow demonstrates normal overall signal. IMPRESSION: Redemonstrated fluid collection at the right aspect of the cul-de-sac measuring up to 3.1 centimeters. This finding is of uncertain etiology or clinical significance. No highly suspicious features such as soft tissue nodularity or abnormal enhancement are identified within the finding. Differential considerations would include a seroma or old hematoma if there has been prior pelvic surgery, peritoneal inclusion cyst, or gut duplication cyst. Other etiologies are not excluded however. If clinically indicated, imaging follow-up could be obtained to ensure stability, with an interval of 6-12 months or other interval at clinical discretion. Dictated by: Zaheer Murray M.D. on 03/09/2022 at 15:40 Approved by: Zaheer Murray M.D. on 03/09/2022 at 16:57
== END ==
PROVIDERS: Family Provider Family Medicine; PCP Family Medicine; Referring Provider Family Medicine; Visit Provider Family Medicine
DX: R19.00 Intra-abdominal and pelvic swelling, mass and lump, unspecified site (principal)
CPT/HCPCS: 72197; A9579

== ENCOUNTER → 2023-07-26 15:03 | Outpatient (RCR) | payer BC, OTHER, MEDICAID, SELFPAY ==
--- NOTE | 2022-04-09 17:25 | PT.OIE ---
Current Diagnoses Stress incontinence (female) (male) (04/09/22) Past Medical History (Last Reviewed 12/13/21 @ 10:41 by Stormy Barry MD) Abnormal Pap smear of cervix (~2003) Anemia (~2009) Blindness (~2013) Chicken pox (~1987) Herpes (~2015) Human papilloma virus (~2004) Menorrhagia with regular cycle (05/31/15) PMDD (premenstrual dysphoric disorder) depression associated with first (~06/2016) Secondary dysmenorrhea (05/31/15) Past Surgical History (Last Reviewed 12/13/21 @ 10:41 by Stormy Barry MD) Anesthesia History of hand surgery (~2007) History of third molar tooth extraction (~2000) Status post sclerotherapy of varicose veins (~2006) Visit Care Team Role Provider Type Silvia Tovar MD Family Provider Physician Primary Care Provider Specialty: [facility] Address: [address] [place] [address] [place], [address] Email: [email or web address] Michelle Peralta MD Attending Provider Physician Referring Provider Specialty: [facility] Address: [address] [place] [address], [place], [address] Email: [email or web address] Physical Therapy Initial Evaluation PT-OP-A Visit Information Start: 04/09/22 13:00 Freq: Status: Active Protocol: Document 04/09/22 13:00 [facility] (Rec: 04/09/22 13:49 [facility] [id number]) Out-Patient Physical Therapy Visit Information Visit Information Visit Type Initial Evaluation Visit Start Time 13:00 Visit Stop Time 13:45 Total Visit Minutes 45 Visit Number 1 Evaluation Information Evaluation Date 04/09/22 PT-OP-B Current Condition Start: 04/09/22 13:00 Freq: Status: Active Protocol: Document 04/09/22 13:00 [facility] (Rec: 04/09/22 13:49 [facility] [id number]) Current Condition History of Current Condition Onset Date December 2021 Current Complaints post pelvic floor weakness her baby december 16 , 9 lbs 1 oz no tearing. History of Current Condition pt feels like her pelvic floor is loose, she feels numb with intercourse, it makes it feel like it harder to pull in her pelvic floor, pt was experiencing urinary leakage but it has gotten better, her first baby was born 6 years ago. Some urgency but not a lot. Cutting off mid stream is really difficult. She was leaking a significant amount of urine but this is improving. Treatment Goals Patient/Caregiver Goals to improve strength of the pelvic floor and to improve sensation of the pelvic floor PT-OP-I Pelvic Floor Start: 04/09/22 13:00 Freq: Status: Active Protocol: Document 04/09/22 13:00 [facility] (Rec: 04/09/22 13:49 [facility] [id number]) Pelvic Floor Assessment Urine Pelvic Floor Surgery No Urinary Symptoms Urge Sensation Pelvic Clock Pelvic Clock 3-6 Guarding,Tightness Pelvic Clock Other pt has decreased sensation especially on the left lateral wall of the levator ani from 3-6. She was not able to feel that she was guarded on the left. Some loss of sensation on the right side from 6-9 Perineal Descent Resting Absent Bearing Absent SEMG (uV) Baseline 4.0 10 Second Contraction 10.9 Recruitment Pattern Fair Relaxation Fair Holding Fair Stability of Hold Fair Contraction Ability Voluntary Contraction Weak Voluntary Relaxation Weak Manual Muscle Testing Left 2 Manual Muscle Testing Right 2 Manual Muscle Testing Anterior 2 Manual Muscle Testing Posterior 2 Comments Pelvic Floor Comments average contraction is 10.9 max is 19.3 and average rest 3 .3 uv. Pt did not have sensation that she was idalia her pelvic floor on EMG biofeedback PT-OP-Q Treatments Start: 04/09/22 13:00 Freq: Status: Active Protocol: Document 04/09/22 13:00 [facility] (Rec: 04/09/22 13:49 [facility] [id number]) Therapeutic Exercises Supine Exercises pelvic floor long holds Reps/Minutes x 10 reps holding x 10 sec, relaxing x 10 seconds PT-OP-T Assessment and Plan Start: 04/09/22 13:00 Freq: Status: Active Protocol: Document 04/09/22 13:00 [facility] (Rec: 04/09/22 13:49 [facility] [id number]) Physical Therapy Assessment Rehab Potential Rehabilitation Potential Excellent Evaluation Complexity Number of Personal Factors/Comorbidities 0 Number of Body Systems Impaired 1-2 Clinical Presentation at Evaluation Stable Goals 3 Impairment Decreased sensation of pelvic floor contraction and decreased ability to feel her pelvic floor to tactile cues Prison Goal (LTG) anil reports a overall improvement with pelvic floor awareness and sensation LTG Duration 12 weeks 2 Impairment Decreased pelvic floor endurance Short Term Goal (STG) Anil is able to sustain a pelvic floor contraction in supine x 10 seconds STG Duration 6 weeks Prison Goal (LTG) anil is able to sustain a pelvic floor contraction in standing x 10 seconds LTG Duration 12 weeks 1.00 Impairment pelvic floor weakness with MMT of 2/5 Lawn Caretaker Goal (LTG) Improve strength of the pelvic floor by 1 muscle grade or better for improved support of the bladder LTG Duration 12 weeks Assessment Summary Assessment Anil is a 41 year old female referred to PT for pelvic floor strengthening . She is 3 months post for vaginal of her baby girl. Her daughter was 9lbs 1 oz and she has noticed pelvic floor weakness and laxity since delivery. Pt has a 6 year old as well and doesn't report any pelvic floor symptoms with her first and delivery. She reports significant leakage initially but this has slowly improved. She leaks now with strong cough or sneeze. One of Anil's chief complaint is feeling numb with intercourse. With pelvic examination today she lacks sensation on the left lateral wall and anterior wall of the levator ani and has decreased sensation on the right wall of the levator ani. She is able to contract all torrez of the levator ani but with poor awareness that she is idalia. There is some pelvic floor tightness and guarding on the left side. EMG biofeedback was initiated for Anil today to help with awareness of pelvic floor contraction. She has elevated resting tone at rest but this did improve with pelvic floor contract/relax exercises. She may be a good candidate for NMES to help with improved pelvic floor sensation. I explained this treatment to her and she would like to try next visit. Goals will be to improve both strength as well as sensation of pelvic floor contractions Physical Therapy Plan Frequency and Duration Frequency of Treatment 1x/Week Duration of treatment (weeks) 12 Plan of Care Start Date 04/09/22 Plan of Care End Date 07/09/22 Therapeutic Interventions Therapeutic Interventions Home Exercise Program, Neuromuscular Re-education, Self-Care/Home Management, Therapeutic Exercises Modalities Biofeedback,Electric Stimulation Next Visit Focus/Plan Next Note Type Treatment Note Next Visit Plan begin NMES next visit to help improve sensation of pelvic floor contraction, EMG biofeedback for pelvic floor strengthening as well as working towards full pelvic floor relaxation.
--- NOTE | 2022-04-09 17:26 | PT.OPPOC ---
Physical, Occupational & Speech Therapy At [facility] Current Diagnoses Stress incontinence (female) (male) (04/09/22) Visit Care Team Role Provider Type Silvia Tovar MD Family Provider Physician Primary Care Provider Specialty: Family Practice Address: [address] [place] [address], [address], [place], [address] Email: [email or web address] Michelle Peralta MD Attending Provider Physician Referring Provider Specialty: [facility] Practice Address: [address] [place] [address], [address], [place], [address] Email: [email or web address] Plan Of Care PT-OP-T Assessment and Plan Start: 04/09/22 13:00 Freq: Status: Active Protocol: Document 04/09/22 13:00 [facility] (Rec: 04/09/22 13:49 [facility] [id number]) Physical Therapy Assessment Rehab Potential Rehabilitation Potential Excellent Evaluation Complexity Number of Personal Factors/Comorbidities 0 Number of Body Systems Impaired 1-2 Clinical Presentation at Evaluation Stable Goals 3 Impairment Decreased sensation of pelvic floor contraction and decreased ability to feel her pelvic floor to tactile cues Building And Grounds Supervisor Goal (LTG) anil reports a overall improvement with pelvic floor awareness and sensation LTG Duration 12 weeks 2 Impairment Decreased pelvic floor endurance Short Term Goal (STG) Anil is able to sustain a pelvic floor contraction in supine x 10 seconds STG Duration 6 weeks Residential Goal (LTG) anil is able to sustain a pelvic floor contraction in standing x 10 seconds LTG Duration 12 weeks 1.00 Impairment pelvic floor weakness with MMT of 2/5 Residential Goal (LTG) Improve strength of the pelvic floor by 1 muscle grade or better for improved support of the bladder LTG Duration 12 weeks Assessment Summary Assessment Anil is a 41 year old female referred to PT for pelvic floor strengthening . She is 3 months post for vaginal of her baby girl. Her daughter was 9lbs 1 oz and she has noticed pelvic floor weakness and laxity since delivery. Pt has a 6 year old as well and doesn't report any pelvic floor symptoms with her first and delivery. She reports significant leakage initially but this has slowly improved. She leaks now with strong cough or sneeze. One of Anil's chief complaint is feeling numb with intercourse. With pelvic examination today she lacks sensation on the left lateral wall and anterior wall of the levator ani and has decreased sensation on the right wall of the levator ani. She is able to contract all torrez of the levator ani but with poor awareness that she is idalia. There is some pelvic floor tightness and guarding on the left side. EMG biofeedback was initiated for Anil today to help with awareness of pelvic floor contraction. She has elevated resting tone at rest but this did improve with pelvic floor contract/relax exercises. She may be a good candidate for NMES to help with improved pelvic floor sensation. I explained this treatment to her and she would like to try next visit. Goals will be to improve both strength as well as sensation of pelvic floor contractions Physical Therapy Plan Frequency and Duration Frequency of Treatment 1x/Week Duration of treatment (weeks) 12 Plan of Care Start Date 04/09/22 Plan of Care End Date 07/09/22 Therapeutic Interventions Therapeutic Interventions Home Exercise Program, Neuromuscular Re-education, Self-Care/Home Management, Therapeutic Exercises Modalities Biofeedback,Electric Stimulation Next Visit Focus/Plan Next Note Type Treatment Note Next Visit Plan begin NMES next visit to help improve sensation of pelvic floor contraction, EMG biofeedback for pelvic floor strengthening as well as working towards full pelvic floor relaxation. Plan of Care Dates Plan of Care Start Date 04/09/22 Plan of Care End Date 07/09/22 Electronically Signed by: Christine Khalil, PT 04/09/22 6950 If you are in agreement with this Plan of Care, please return a signed and dated copy. I have reviewed this Plan of Care and certify that the skilled therapy services above are required to meet the patient?s needs. Physician Signature Date Printed Name and Credentials Clinical Instructor Signature Printed Name and Credentials
--- NOTE | 2022-04-16 17:37 | PT.OTN ---
Current Diagnoses Stress incontinence (female) (male) (04/16/22) Physical Therapy Treatment Note PT-OP-A Visit Information Start: 04/09/22 13:00 Freq: Status: Active Protocol: Document 04/16/22 13:00 [facility] BEDS AT [facility] (Rec: 04/16/22 13:07 [facility]S INCLUDE 234 BEDS AT THE [facility] [id number]) Out-Patient Physical Therapy Visit Information Visit Information Visit Type Treatment Note Visit Start Time 13:00 Visit Stop Time 13:45 Total Visit Minutes 45 Visit Number 2 PT-OP-B Current Condition Start: 04/09/22 13:00 Freq: Status: Active Protocol: Document 04/09/22 13:00 [facility] INCLUDE 234 BEDS AT THE [facility] (Rec: 04/09/22 13:49 [facility]CLUDE 234 BEDS AT THE [facility] [id number]) Current Condition History of Current Condition Onset Date December 2021 Current Complaints post pelvic floor weakness her babjune 7th , 9 lbs 1 oz no tearning. History of Current Condition pt feels like her pelvic floor is loose, she feels numb with intercourse, it makes it feel like it harder to pull in her pelvic floor, pt was experiencing urinary leakage but it has gotten better, her first baby was born 6 years ago. Some urgency but not a lot. Cutting off mid stream is really difficult. She was leaking a significant amount of urine but this is improving. Treatment Goals Patient/Caregiver Goals to improve strength of the pelvic floor and to improve sensation of the pelvic floor PT-OP-C Subjective Start: 04/09/22 13:00 Freq: Status: Active Protocol: Document 04/16/22 13:00 [facility]S INCLUDE 234 BEDS AT THE [facility] (Rec: 04/16/22 13:07 COUNTS INCLUDE 234 BEDS AT THE [facility] [id number]) OP-PT Subjective Patient Comments Patient Comments pt reports she has been working on her pelvic floor exercises. She does note her baby woke up every 45 min last night so she is more tired today PT-OP-I Pelvic Floor Start: 04/09/22 13:00 Freq: Status: Active Protocol: Document 04/16/22 13:00 [facility] (Rec: 04/16/22 13:16 [facility]CLUDE 234 BEDS AT THE [facility] [id number]) Pelvic Floor Assessment Urine Pelvic Floor Surgery No Urinary Symptoms Urge Sensation Pelvic Clock Pelvic Clock 3-6 Guarding,Tightness Pelvic Clock Other pt has decreased sensation especially on the left lateral wall of the levator ani from 3-6. She was not able to feel that she was guarded on the left. Some loss of sensation on the right side from 6-9 SEMG (uV) Baseline 4.0 10 Second Contraction 10.9 Recruitment Pattern Fair Relaxation Fair Holding Fair Stability of Hold Fair Comments Pelvic Floor Comments average contraction 13.8 uv and max 19.4 resting tone is still elevated 3.5 uv PT-OP-Q Treatments Start: 04/09/22 13:00 Freq: Status: Active Protocol: Document 04/16/22 13:00 COUNTS INCLUDE 234 BEDS AT THE [facility] (Rec: 04/16/22 13:16 COUNTS INCLUDE 234 BEDS AT THE [facility] [id number]) Therapeutic Exercises Supine Exercises piriformis stretch Reps/Minutes hold 1-2 minutes iliopsoas stretch Reps/Minutes hold 1-2 minutes happy baby Reps/Minutes hold 1-2 min modified pelvic floor stretch Reps/Minutes hold 1-2 min Neuro Re-Education Treatment Other Activities NMES Details NMES for the pelvic floor with internal sensor Comments level 22, pt could feel primarily left upper quadrant PT-OP-T Assessment and Plan Start: 04/09/22 13:00 Freq: Status: Active Protocol: Document 04/16/22 13:00 COUNTS INCLUDE 234 BEDS AT THE [facility] (Rec: 04/16/22 13:07 COUNTS INCLUDE 234 BEDS AT THE [facility] [id number]) Physical Therapy Assessment Assessment Summary Assessment We initiated NMES today for Roxi, she could feel this primarily left anterior wall. She did improve with EMG biofeedback for her endurance holds, added in piriformis stretch and pelvic floor relaxation stretches as she is still elevated in her resting tone Physical Therapy Plan Frequency and Duration Frequency of Treatment 1x/Week Duration of treatment (weeks) 12 Plan of Care Start Date 04/09/22 Plan of Care End Date 07/09/22 Therapeutic Interventions Therapeutic Interventions Home Exercise Program, Neuromuscular Re-education, Self-Care/Home Management, Therapeutic Exercises Modalities Biofeedback,Electric Stimulation Next Visit Focus/Plan Next Note Type Treatment Note Next Visit Plan continue with NMES next visit to help improve sensation of pelvic floor contraction, EMG biofeedback for pelvic floor strengthening as well as working towards full pelvic floor relaxation.
--- NOTE | 2022-04-23 13:46 | PT.OTN ---
Current Diagnoses Stress incontinence (female) (male) (04/23/22) Physical Therapy Treatment Note PT-OP-A Visit Information Start: 04/09/22 13:00 Freq: Status: Active Protocol: Document 04/23/22 13:01 [facility] (Rec: 04/23/22 13:46 [facility] [id number]) Out-Patient Physical Therapy Visit Information Visit Information Visit Type Treatment Note Visit Start Time 13:00 Visit Stop Time 13:45 Total Visit Minutes 45 Visit Number 3 PT-OP-B Current Condition Start: 04/09/22 13:00 Freq: Status: Active Protocol: Document 04/09/22 13:00 [facility] (Rec: 04/09/22 13:49 [facility] [id number]) Current Condition History of Current Condition Onset Date December 2021 Current Complaints post pelvic floor weakness her babjune 7th , 9 lbs 1 oz no tearning. History of Current Condition pt feels like her pelvic floor is loose, she feels numb with intercourse, it makes it feel like it harder to pull in her pelvic floor, pt was experiencing urinary leakage but it has gotten better, her first baby was born 6 years ago. Some urgency but not a lot. Cutting off mid stream is really difficult. She was leaking a significant amount of urine but this is improving. Treatment Goals Patient/Caregiver Goals to improve strength of the pelvic floor and to improve sensation of the pelvic floor PT-OP-C Subjective Start: 04/09/22 13:00 Freq: Status: Active Protocol: Document 04/23/22 13:01 [facility] (Rec: 04/23/22 13:46 [facility] [id number]) OP-PT Subjective Patient Comments Patient Comments pt reports she didn't realize how tight she was in her hips until she started doing the figure 4 stretch last visit PT-OP-I Pelvic Floor Start: 04/09/22 13:00 Freq: Status: Active Protocol: Document 04/23/22 13:01 [facility] (Rec: 04/23/22 13:46 [facility] [id number]) Pelvic Floor Assessment Perineal Descent Resting Absent Bearing Absent SEMG (uV) Baseline 3.5 10 Second Contraction 15.0 Comments Pelvic Floor Comments 25.5 uv max PT-OP-Q Treatments Start: 04/09/22 13:00 Freq: Status: Active Protocol: Document 04/23/22 13:01 [facility] (Rec: 04/23/22 13:46 [facility] [id number]) Therapeutic Exercises Supine Exercises templates for eccentric control and coordination Reps/Minutes x 5 quick contractions Reps/Minutes x 10 Comments max 32 uv pelvic floor long holds Reps/Minutes x 10 reps holding x 10 sec, relaxing x 10 seconds Neuro Re-Education Treatment Other Activities NMES Details NMES for the pelvic floor with internal sensor Comments level 17 pt could feel NMES today, she can feel it more on the left side lower today and also a little on the right PT-OP-T Assessment and Plan Start: 04/09/22 13:00 Freq: Status: Active Protocol: Document 04/23/22 13:01 [facility] (Rec: 04/23/22 13:46 [facility] [id number]) Physical Therapy Assessment Goals 3 Impairment Decreased sensation of pelvic floor contraction and decreased ability to feel her pelvic floor to tactile cues General Maintenance Mechanic Goal (LTG) anil reports a overall improvement with pelvic floor awarenss and sensation LTG Duration 12 weeks 2 Impairment Decreased pelvic floor endurance Short Term Goal (STG) Anil is able to sustain a pelvic floor contraction in supine x 10 seconds STG Duration 6 weeks General Maintenance Mechanic Goal (LTG) anil is able to sustain a pelvic floor contraction in standing x 10 seconds LTG Duration 12 weeks 1.00 Impairment pelvic floor weakness with MMT of 2/5 Skilled Nursing Goal (LTG) Improve strength of the pelvic floor by 1 muscle grade or better for improved support of the bladder LTG Duration 12 weeks Three Impairment R Hip strength: AD 3+/5, AB 4 /5, ER 3+/5. L Hip strength is normal. Pain with sidelying, sitting or standing >30' Two Impairment Hip PROM (in deg's): ER is 65 R, 55L, IR is 25 R, 55 L, PSLR is 80 R, 85 L Lumbar AROM (in deg's): Extension: 3 deg's, Rot: 20 L, 35 R; SB: 10 L, 13 R Pain with walking greater than 1 hour. One Impairment  Assessment Summary Assessment pt could feel sensation earlier today on the NMES at 17 vs 22, she still is not able to feel voluntary contractions. She is gaining strength in her pelvic floor as measured on EMG biofeedback Physical Therapy Plan Frequency and Duration Frequency of Treatment 1x/Week Duration of treatment (weeks) 12 Plan of Care Start Date 04/09/22 Plan of Care End Date 07/09/22 Therapeutic Interventions Therapeutic Interventions Home Exercise Program, Neuromuscular Re-education, Self-Care/Home Management, Therapeutic Exercises Modalities Biofeedback,Electric Stimulation Next Visit Focus/Plan Next Note Type Treatment Note Next Visit Plan review stretches next visit, continue with NMES next visit to help improve sensation of pelvic floor contraction, EMG biofeedback for pelvic floor strengthening as well as working towards full pelvic floor relaxation.
--- NOTE | 2022-04-28 11:15 | PT.OTN ---
Current Diagnoses Stress incontinence (female) (male) (04/28/22) Physical Therapy Treatment Note PT-OP-A Visit Information Start: 04/09/22 13:00 Freq: Status: Active Protocol: Document 04/28/22 10:32 [facility] (Rec: 04/28/22 11:04 [facility] [id number]) Out-Patient Physical Therapy Visit Information Visit Information Visit Type Treatment Note Visit Start Time 10:30 Visit Stop Time 11:15 Total Visit Minutes 45 Visit Number 4 PT-OP-B Current Condition Start: 04/09/22 13:00 Freq: Status: Active Protocol: Document 04/09/22 13:00 [facility] (Rec: 04/09/22 13:49 [facility] [id number]) Current Condition History of Current Condition Onset Date December 2021 Current Complaints post pelvic floor weakness her babjune 7th , 9 lbs 1 oz no tearning. History of Current Condition pt feels like her pelvic floor is loose, she feels numb with intercourse, it makes it feel like it harder to pull in her pelvic floor, pt was experiencing urinary leakage but it has gotten better, her first baby was born 6 years ago. Some urgency but not a lot. Cutting off mid stream is really difficult. She was leaking a significant amount of urine but this is improving. Treatment Goals Patient/Caregiver Goals to improve strength of the pelvic floor and to improve sensation of the pelvic floor PT-OP-C Subjective Start: 04/09/22 13:00 Freq: Status: Active Protocol: Document 04/28/22 10:32 [facility] (Rec: 04/28/22 11:04 [facility] [id number]) OP-PT Subjective Patient Comments Patient Comments pt reports she still doesn't feel the sensation of her pelvic floor, she can tell she is idalia but it is difficult to feel the contractions, felt a slight bit of sensation on the right lateral wall with intercourse. PT-OP-I Pelvic Floor Start: 04/09/22 13:00 Freq: Status: Active Protocol: Document 04/28/22 11:04 [facility] (Rec: 04/28/22 11:06 [facility] [id number]) Pelvic Floor Assessment Comments Pelvic Floor Comments 14.8 uv and 23.3 max PT-OP-Q Treatments Start: 04/09/22 13:00 Freq: Status: Active Protocol: Document 04/28/22 10:32 [facility] (Rec: 04/28/22 11:04 [facility] [id number]) Therapeutic Exercises Supine Exercises roll outs with theraband Reps/Minutes x 20 reps templates for eccentric control and coordination Reps/Minutes x 5 quick contractions Reps/Minutes x 10 Comments max 32 uv pelvic floor long holds Reps/Minutes x 10 reps holding x 10 sec, relaxing x 10 seconds Neuro Re-Education Treatment Other Activities NMES Details NMES for the pelvic floor with internal sensor Comments pt can feel contractions at a 8 intensity on the NMES PT-OP-T Assessment and Plan Start: 04/09/22 13:00 Freq: Status: Active Protocol: Document 04/28/22 10:32 [facility] (Rec: 04/28/22 11:04 [facility] [id number]) Physical Therapy Assessment Goals 3 Impairment Decreased sensation of pelvic floor contraction and decreased ability to feel her pelvic floor to tactile cues Orthopaedic Nurse Goal (LTG) anil reports a overall improvement with pelvic floor awarenss and sensation LTG Duration 12 weeks 2 Impairment Decreased pelvic floor endurance Short Term Goal (STG) Anil is able to sustain a pelvic floor contraction in supine x 10 seconds STG Duration 6 weeks Shelter Goal (LTG) anil is able to sustain a pelvic floor contraction in standing x 10 seconds LTG Duration 12 weeks 1.00 Impairment pelvic floor weakness with MMT of 2/5 Orthopaedic Nurse Goal (LTG) Improve strength of the pelvic floor by 1 muscle grade or better for improved support of the bladder LTG Duration 12 weeks Assessment Summary Assessment Anil could feel the NMES at level 8 today and is feeling a little more on her right side. She still has a elevated resting tone on EMG biofeedback. This dropped after she worked on stretching her piriformis. I also added in supine hip abduction with band and this also helped lower her resting tone Physical Therapy Plan Frequency and Duration Frequency of Treatment 1x/Week Duration of treatment (weeks) 12 Plan of Care Start Date 04/09/22 Plan of Care End Date 07/09/22 Therapeutic Interventions Therapeutic Interventions Home Exercise Program, Neuromuscular Re-education, Self-Care/Home Management, Therapeutic Exercises Modalities Biofeedback,Electric Stimulation Next Visit Focus/Plan Next Note Type Treatment Note Next Visit Plan review stretches next visit, continue with NMES next visit to help improve sensation of pelvic floor contraction, EMG biofeedback for pelvic floor strengthening as well as working towards full pelvic floor relaxation.
--- NOTE | 2022-05-28 17:40 | PT.OTN ---
Current Diagnoses Stress incontinence (female) (male) (05/28/22) Physical Therapy Treatment Note PT-OP-A Visit Information Start: 04/09/22 13:00 Freq: Status: Active Protocol: Document 05/28/22 10:33 [facility] (Rec: 05/28/22 11:13 [facility] [id number]) Out-Patient Physical Therapy Visit Information Visit Information Visit Type Treatment Note Visit Start Time 10:35 Visit Stop Time 11:15 Total Visit Minutes 45 Visit Number 5 PT-OP-B Current Condition Start: 04/09/22 13:00 Freq: Status: Active Protocol: Document 04/09/22 13:00 [facility] (Rec: 04/09/22 13:49 [facility] [id number]) Current Condition History of Current Condition Onset Date December 2021 Current Complaints post pelvic floor weakness her babjune 7th , 9 lbs 1 oz no tearning. History of Current Condition pt feels like her pelvic floor is loose, she feels numb with intercourse, it makes it feel like it harder to pull in her pelvic floor, pt was experiencing urinary leakage but it has gotten better, her first baby was born 6 years ago. Some urgency but not a lot. Cutting off mid stream is really difficult. She was leaking a significant amount of urine but this is improving. Treatment Goals Patient/Caregiver Goals to improve strength of the pelvic floor and to improve sensation of the pelvic floor PT-OP-C Subjective Start: 04/09/22 13:00 Freq: Status: Active Protocol: Document 05/28/22 10:33 [facility] (Rec: 05/28/22 11:13 [facility] [id number]) OP-PT Subjective Patient Comments Patient Comments pt reports she still doesn't feel any more sensation, she is not having any leakage now Right sided SI pain today PT-OP-I Pelvic Floor Start: 04/09/22 13:00 Freq: Status: Active Protocol: Document 04/28/22 11:04 [facility] (Rec: 04/28/22 11:06 [facility] [id number]) Pelvic Floor Assessment Comments Pelvic Floor Comments 14.8 uv and 23.3 max PT-OP-Q Treatments Start: 04/09/22 13:00 Freq: Status: Active Protocol: Document 05/28/22 10:33 [facility] (Rec: 05/28/22 11:13 [facility] [id number]) Therapeutic Exercises Supine Exercises roll outs with theraband Comments HEP quick contractions Reps/Minutes x 10 reps pelvic floor long holds Reps/Minutes 19.3 40.5 max Manual Therapy Treatment Manual Techniques MET for right posterior innominant rotation Body Position Hooklying Reps/Duration x 5 reps Neuro Re-Education Treatment Other Activities NMES Details NMES for the pelvic floor Comments pt can feel more sensation and can feel it on both sides PT-OP-T Assessment and Plan Start: 04/09/22 13:00 Freq: Status: Active Protocol: Document 05/28/22 10:33 [facility] (Rec: 05/28/22 11:13 [facility] [id number]) Physical Therapy Assessment Goals 3 Impairment Decreased sensation of pelvic floor contraction and decreased ability to feel her pelvic floor to tactile cues Alf Goal (LTG) anil reports a overall improvement with pelvic floor awarenss and sensation LTG Duration 12 weeks 2 Impairment Decreased pelvic floor endurance Short Term Goal (STG) Anil is able to sustain a pelvic floor contraction in supine x 10 seconds STG Duration 6 weeks Ambulance Officer Goal (LTG) anil is able to sustain a pelvic floor contraction in standing x 10 seconds LTG Duration 12 weeks Assessment Summary Assessment Anil was able to feel sensation of the pelvic floor today with NMES, she could also feel her self contract the pelvic floor today with EMG biofeedback. This is good improvement. She was having right sided SI pain today so I added in stretches for the pelvis and MET was performed for right posterior innominant rotatio. She tolerated this treatment well today Physical Therapy Plan Frequency and Duration Frequency of Treatment 1x/Week Duration of treatment (weeks) 12 Plan of Care Start Date 04/09/22 Plan of Care End Date 07/09/22
--- NOTE | 2023-07-20 08:52 | PT.OPDS ---
Current Diagnoses Stress incontinence (female) (male) (05/28/22) Visit Care Team Role Provider Type Silvia Tovar MD Family Provider Physician Primary Care Provider Specialty: Family Practice Address: [address] [place] [address], [address], [place], [address] Email: [email or web address] Michelle Peralta MD Attending Provider Physician Referring Provider Specialty: [facility] Address: [address] [place] [address], [address], [place], [address] Email: [email or web address] Visit Number Visit Number 5 Discharge Summary PT-OP-B Current Condition Start: 04/09/22 13:00 Freq: Status: Active Protocol: Document 04/09/22 13:00 [facility] (Rec: 04/09/22 13:49 [facility] [id number]) Current Condition History of Current Condition Onset Date December 2021 Current Complaints post pelvic floor weakness her babjune 7th , 9 lbs 1 oz no tearning. History of Current Condition pt feels like her pelvic floor is loose, she feels numb with intercourse, it makes it feel like it harder to pull in her pelvic floor, pt was experiencing urinary leakage but it has gotten better, her first baby was born 6 years ago. Some urgency but not a lot. Cutting off mid stream is really difficult. She was leaking a significant amount of urine but this is improving. Treatment Goals Patient/Caregiver Goals to improve strength of the pelvic floor and to improve sensation of the pelvic floor PT-OP-C Subjective Start: 04/09/22 13:00 Freq: Status: Active Protocol: Document 05/28/22 10:33 [facility] (Rec: 05/28/22 11:13 [facility] [id number]) OP-PT Subjective Patient Comments Patient Comments pt reports she still doesn't feel any more sensation, she is not having any leakage now Right sided SI pain today PT-OP-I Pelvic Floor Start: 04/09/22 13:00 Freq: Status: Active Protocol: Document 04/28/22 11:04 [facility] (Rec: 04/28/22 11:06 [facility] [id number]) Pelvic Floor Assessment Comments Pelvic Floor Comments 14.8 uv and 23.3 max PT-OP-T Assessment and Plan Start: 04/09/22 13:00 Freq: Status: Active Protocol: Document 07/20/23 08:50 [facility] (Rec: 07/20/23 08:52 [facility] [id number]) Physical Therapy Assessment Goals 3 Impairment Decreased sensation of pelvic floor contraction and decreased ability to feel her pelvic floor to tactile cues Intermediate Goal (LTG) anil reports a overall improvement with pelvic floor awarenss and sensation LTG Duration 12 weeks 2 Impairment Decreased pelvic floor endurance Short Term Goal (STG) Anil is able to sustain a pelvic floor contraction in supine x 10 seconds STG Duration 6 weeks Intermediate Goal (LTG) anil is able to sustain a pelvic floor contraction in standing x 10 seconds LTG Duration 12 weeks 1.00 Impairment pelvic floor weakness with MMT of 2/5 Coil Taper Goal (LTG) Improve strength of the pelvic floor by 1 muscle grade or better for improved support of the bladder LTG Duration 12 weeks Three Impairment R Hip strength: AD 3+/5, AB 4 /5, ER 3+/5. L Hip strength is normal. Pain with sidelying, sitting or standing >30' Two Impairment Hip PROM (in deg's): ER is 65 R, 55L, IR is 25 R, 55 L, PSLR is 80 R, 85 L Lumbar AROM (in deg's): Extension: 3 deg's, Rot: 20 L, 35 R; SB: 10 L, 13 R Pain with walking greater than 1 hour. One Impairment  Assessment Summary Assessment Anil has not been seen since May 28 She is no longer attending PT and will be discharged at this time. At the time of her last visit she was starting to feel sensation of the pelvic floor and was starting to be able to feel when she contracted her pelvic floor. She did not return to PT after this visit so a updated plan of care was not made. Physical Therapy Plan Discharge Physical Therapy Discharge Reasons No Longer Attending PT
== END | disposition home or self-care (01) ==
LOC: PHYS 04-09 12:56
PROVIDERS: Family Provider Family Medicine; PCP Family Medicine; Referring Provider Family Medicine; Visit Provider Family Medicine
DX: N39.3 Stress incontinence (female) (male) (principal)
CPT/HCPCS: 97110; 97112; 97140; 97161